=== PATIENT | female | born 1990 | race Caucasian/White ===

== ENCOUNTER 2021-11-22 12:39 | Outpatient (CLI) | payer OTHER, SELFPAY | END 2021-11-22 12:40 | disposition home or self-care (01) | LOC: LAB 13:46 | PROVIDERS: PCP Electrodiagnostic Medicine; Visit Provider Family Medicine | DX: M67.40 Ganglion, unspecified site (principal) | CPT/HCPCS: 88304 ==

== ENCOUNTER → 2021-12-12 10:17 | Outpatient (BNVA) | payer OTHER, SELFPAY | PROVIDERS: PCP Electrodiagnostic Medicine; Visit Provider Orthopaedic Surgery | DX: M54.9 Dorsalgia, unspecified (principal) | CPT/HCPCS: 72110 ==

== ENCOUNTER 2022-02-18 20:14 | Emergency (ER) | payer OTHER, SELFPAY ==
[2022-02-18 20:29] VITALS: BP 127/86; PULSE 87; RESP 16; TEMP 37; O2SAT 97; BMI 23.0
[2022-02-18 20:50] LABS: HCG Qualitative Urine. Negative (Negative)
[2022-02-18 20:54] LABS: Add Urine Microscopic? YES; Bilirubin Urine Neg (Negative); Blood Urine 2+ (Negative); Glucose Urine UA Norm (Normal); Ketones Urine Negative (Negative); Leukocyte Esterase Urine Negative (Negative); Nitrate Urine Negative (Negative); Protein Urine Neg (Negative); Specific Gravity, Urine 1.015 (1.005-1.030); Urine Appearance Clear (CLEAR); Urine Color Yellow (Yellow); Urobilinogen Urine Norm (Negative); pH Urine 6 (5-7)
--- NOTE | 2022-02-18 20:54 | ED_ITS ---
HPI - General Adult General: Chief complaint: Headache Stated complaint: (3) Headache\Breast pain and Leakage Time Seen by Provider: 02/18/22 20:38 History of Present Illness: Patient is a 31-year-old female who presents emergency room with complaints of right-sided breast pain with discharge x3 days. Patient is on Nexplanon for control. Patient tells me that in the past she has noted breast swelling but never this pain for with drainage. Patient denies any fever or chills, any recent breast-feeding, or other complaints at this time. Yesterday night, patient noted small amount of discharge from the right nipple. Patient denies any nausea or vomiting, chest pain, shortness of breath, abdominal complaints, diarrhea/melena hematochezia. In addition, patient also has been having an ongoing headache for the last 3 days as well. Patient advises frontal relief with ibuprofen. Onset:3 days Duration:3 days Location:home Severity:moderate Associated symptoms: Deny chest pain, dyspnea, nausea, rash, palpitations or vomiting Review of Systems Const: Denies: fever(s) or chills Eyes: Denies: change in vision ENMT: Denies: mouth pain Card: Denies: chest pain or palpitations Resp: Denies: dyspnea or non-productive cough GI: Denies: abdominal pain, nausea, vomiting or diarrhea : Denies: dysuria Musc: Denies: extremity pain Skin/Breast: Reports: other (+R breast pain,swelling, and drainage); Denies: rash or new lesions Neuro: Denies: weakness in extremities Psych: Reports: other (Normal mood) Martin/Lymph: Denies: easy bruising [facility] ED PFSH: Medical History Migraine Social History Smoking and tobacco status: never smoked Alcohol intake: never Substance/Drug Use: never Physical Exam Const: COMMON NORMALS: alert HENMT: COMMON NORMALS: atraumatic HEAD & SCALP: atraumatic MOUTH: moist mucous membranes not abnormal Eye: COMMON NORMALS: EOMs intact bilaterally and conjunctivae normal CONJUNCTIVA: Yes conjunctivae normal Neck/C-Spine: COMMON NORMALS: full ROM and supple Chest: OTHER: +Exam supervised by Christina tech: No obvious discharge from the right alveola, pa lpable fluctuance/erythema or warmth of the breast bilaterally Resp: COMMON NORMALS: normal respiratory effort and clear to auscultation bilaterally AUSCULTATION: clear to auscultation bilaterally Cardio: COMMON NORMALS: regular rate RATE: regular rate GI: COMMON NORMALS: Soft to palpation and non-tender PALPATION: Yes Soft to palpation Extremity: COMMON NORMALS: full ROM Neuro: SENSORIUM/ORIENTATION: Yes alert MOTOR EXAM: No Abnormal motor strength present and Other motor observations present (no focal motor deficits) Psych: COMMON NORMALS: speech normal SPEECH: Yes normal speech MOOD & AFFECT: Yes euthymic mood Skin: NARRATIVE SKIN EXAM: +No palpable fluctuance, induration, warmth, erythema surrounding breast bilaterally, no visible erythema or discharge Course Vital Signs: Vital signs: Vital Signs Temperature 98.6 F 02/18/22 20:29 Pulse Rate 100 02/18/22 21:43 Respiratory Rate 16 02/18/22 21:43 Blood Pressure 132/93 02/18/22 21:43 Pulse Oximetry 100 02/18/22 21:43 MDM - General Adult Medical Decision Making 31-year-old female with a history of migraine headache presents emergency with complaints of headache x3 days with right breast pain and discharge. On physical exam, patient has no palpable fluctuance with surrounding erythema of the right breast. No obvious discharge appreciated. Patient is not currently . Basic blood work is unremarkable. Headache improved with Tylenol Toradol and magnesium oxide. Patient is given close follow-up [facility] sure that there is no developing mastitis or acute infection of the breast. At the present time I do not suspect acute subarachnoid bleed or other intracranial pathology. Patient reassures me that she will follow-up with [facility] tomorrow for further reassessment. Rx tylenol PRN pain Disposition: Discharge. Patient counseled regarding diagnostic impression, treatment plan. Patient given ED strict return precautions to return for continuation, worsening, or development of new symptoms. Instructed to f/u w/ PCP regarding symptoms today. Patient verbalized understanding. Lab Data : 02/18/22 21:10 02/18/22 21:10 Laboratory Results WBC 7.4 10^3/uL (4.0-10.0) 02/18/22 21:10 RBC 4.39 10^6/uL (4.1-5.3) 02/18/22 21:10 Hgb 12.5 g/dL (11.5-15.3) 02/18/22 21:10 Hct 37.0 % (37.0-47.0) 02/18/22 21:10 MCV 84.3 fl (81-99) 02/18/22 21:10 MCH 28.5 pg (28.0-34.0) 02/18/22 21:10 MCHC 33.8 g/dL (30.0-36.0) 02/18/22 21:10 RDW 12.3 % (12.1-15.1) 02/18/22 21:10 Plt Count 251 10^3/cmm (130-400) 02/18/22 21:10 MPV 10.4 fL (7.4-10.4) 02/18/22 21:10 Neut % (Auto) 59.3 % 02/18/22 21:10 Lymph % (Auto) 32.3 % 02/18/22 21:10 [place] % (Auto) 6.3 % 02/18/22 21:10 Eos % (Auto) 1.6 % 02/18/22 21:10 Baso % (Auto) 0.4 % 02/18/22 21:10 Neut # (Auto) 4.39 10^3/uL (1.8-7.7) 02/18/22 21:10 Lymph # (Auto) 2.4 10^3/uL (0.8-4.8) 02/18/22 21:10 [place] # (Auto) 0.5 10^3/uL (0.2-0.9) 02/18/22 21:10 Eos # (Auto) 0.1 10^3/uL (0.0-0.8) 02/18/22 21:10 Baso # (Auto) 0.0 10^3/uL (0.0-0.1) 02/18/22 21:10 Nucleated RBC % (auto) 0 % 02/18/22 21:10 Nucleated RBCs # 0.0 /100WBC 02/18/22 21:10 Sodium 137 mmol/L (136-145) 02/18/22 21:10 Potassium 4.3 mmol/L (3.5-5.1) 02/18/22 21:10 Chloride 103 mmol/L (98-107) 02/18/22 21:10 Carbon Dioxide 25 mmol/L (22-29) 02/18/22 21:10 Anion Gap 13.3 (5-19) 02/18/22 21:10 BUN 5 mg/dL (6-20) L 02/18/22 21:10 Creatinine 0.5 mg/dL (0.5-0.9) 02/18/22 21:10 GFR Calculation 144.9 mL/min (90-130) H 02/18/22 21:10 Glucose 103 mg/dL (65-115) 02/18/22 21:10 Calculated Osmolality 282 mOsm/kg (285-295) L 02/18/22 21:10 Calcium 8.9 mg/dL (8.5-10.5) 02/18/22 21:10 HCG, Qual Negative (Negative) 02/18/22 20:38 Urine Color Yellow (Yellow) 02/18/22 20:38 Urine Appearance Clear (CLEAR) 02/18/22 20:38 Urine pH 6 (5-7) 02/18/22 20:38 Ur Specific [place] 1.015 (1.005-1.030) 02/18/22 20:38 Urine Protein Neg (Negative) 02/18/22 20:38 Urine Glucose (UA) Norm (Normal) 02/18/22 20:38 Urine Ketones Negative (Negative) 02/18/22 20:38 Urine Blood 2+ (Negative) H 02/18/22 20:38 Urine Nitrate Negative (Negative) 02/18/22 20:38 Urine Bilirubin Neg (Negative) 02/18/22 20:38 Urine Urobilinogen Norm mg/dL (Negative) 02/18/22 20:38 Ur Leukocyte Esterase Negative (Negative) 02/18/22 20:38 Urine RBC 0-4 /hpf (0-2) H 02/18/22 20:38 Urine WBC 0-4 /hpf (0-5) H 02/18/22 20:38 Ur Squamous Epith Cells 0-4 /hpf (0-5) H 02/18/22 20:38 Amorphous Sediment Not Reportable 02/18/22 20:38 Urine Bacteria None /hpf (NONE) 02/18/22 20:38 Discharge Plan Discharge Patient Disposition: Home Clinical Impression: Breast discharge, Breast pain Condition: Stable Prescriptions: No Action escitalopram oxalate [Lexapro] 20 mg tablet 20 mg PO DAILY 0RF doxycycline hyclate 100 mg capsule 100 mg PO BID 0RF prednisone 20 mg tablet 20 mg PO DIRECTED Qty: 15 0RF Rx Instructions: 60mg for 3 days, 40mg for 2days, 20mg for 2 days prednisone 20 mg tablet 20 mg PO DAILY Qty: 15 0RF Rx Instructions: 60mg x 3 days 40mg x 2 days 20mg x 2 days Discharge Orders: Discharge ED (Routine); Ordered 02/18/22 Ordered By: Usha Parikh Discharge Diet: Advance as tolerated Discharge Activity: Increase activity as tolerated Patient Instructions: Breast Pain Activity Restrictions/Additional Instructions: Come back if you have any new or concerning issues. Follow-up with [facility] for further evaluation of your breast pain and discharge. Come back to the emergency room any fever chills, drainage, redness, or any new concerning complaints. Stand Alone Forms: Work/School Release Coding Level of Care Code ED Program Schedule Clerk for Wilberto Fwd Exam Comprehensive
[2022-02-18 20:56] LABS: RBC Urine 0-4 /hpf (0-2); Squamous Epithelial Cell Urine 0-4 /hpf (0-5); WBC Urine 0-4 /hpf (0-5)
[2022-02-18 20:57] LABS: Add Urine Culture? No
[2022-02-18 21:03] VITALS: BP 132/93; PULSE 85; O2SAT 100
[2022-02-18 21:19] LABS: Basophils % 0.4 %; Eosinophils # 0.1 10^3/uL (0.0-0.8); Eosinophils % 1.6 %; Hemoglobin 12.5 g/dL (11.5-15.3); Lymphocytes # 2.4 10^3/uL (0.8-4.8); Lymphocytes % 32.3 %; Mean Corpuscular HGB Conc 33.8 g/dL (30.0-36.0); Mean Corpuscular Hemoglobin 28.5 pg (28.0-34.0); Mean Corpuscular Volume 84.3 fl (81-99); Mean Platelet Volume 10.4 fL (7.4-10.4); Monocytes # 0.5 10^3/uL (0.2-0.9); Monocytes % 6.3 %; Neutrophils # 4.39 10^3/uL (1.8-7.7); Neutrophils % 59.3 %; Nucleated Red Blood Cells % 0 %; Platelet Count 251 10^3/cmm (130-400); Red Blood Count 4.39 10^6/uL (4.1-5.3); Red Cell Distribution Width 12.3 % (12.1-15.1); White Blood Count 7.4 10^3/uL (4.0-10.0)
[2022-02-18] MEDS: magnesium oxide 400 mg tablet PO (21:20)
[2022-02-18] MEDS: acetaminophen 500 mg Tablet PO (21:21)
[2022-02-18] MEDS: ketorolac 30 mg/mL INJ IM (21:22)
[2022-02-18 21:42] LABS: Blood Urea Nitrogen 5 mg/dL (6-20); Calcium 8.9 mg/dL (8.5-10.5); Carbon Dioxide 25 mmol/L (22-29); Chloride 103 mmol/L (98-107); Glomerular Filtration Rate 144.9 mL/min (90-130); Glucose 103 mg/dL (65-115); Osmolality Calculated 282 mOsm/kg (285-295); Sodium 137 mmol/L (136-145)
[2022-02-18 21:43] VITALS: BP 132/93; PULSE 100; RESP 16; O2SAT 100
[2022-02-18 21:57] LABS: Anion Gap 13.3 (5-19); Potassium 4.3 mmol/L (3.5-5.1)
== END 2022-02-18 21:50 | disposition home or self-care (01) ==
PROVIDERS: Emergency Medicine; Emergency Provider Emergency Medicine
DX: N64.4 Mastodynia (principal); N64.52 Nipple discharge
CPT/HCPCS: 80048; 81001; 81025; 85025; 96372; 99283; J1885

== ENCOUNTER 2022-08-20 19:11 | Emergency (ER) | payer OTHER, SELFPAY ==
--- NOTE | 2022-08-20 19:18 | XRR_ITS ---
PROCEDURE INFORMATION: Exam: XR Chest Exam date and time: 08/20/2022 8:44 PM Age: 31 years old Clinical indication: Orthopnea (sob when lying down) TECHNIQUE: Imaging protocol: Radiologic exam of the chest. Views: 1 view. COMPARISON: No relevant prior studies available. FINDINGS: Lungs: Mildly hyperaerated lungs consistent with deep inspiratory effort vs reactive airway disease vs mild COPD . Pleural spaces: Unremarkable. No pleural effusion. No pneumothorax. Heart/Mediastinum: Unremarkable. No cardiomegaly. Bones/joints: Unremarkable. XR/XR chest 1V portable [id number] IMPRESSION: Mildly hyperaerated lungs consistent with deep inspiratory effort vs reactive airway disease vs mild COPD .
[2022-08-20 19:19] VITALS: BMI 23.2
[2022-08-20 19:24] VITALS: BP 115/79; PULSE 95; RESP 16; TEMP 36.7; O2SAT 100
--- NOTE | 2022-08-20 19:33 | W.ED.ARRPALP ---
HPI - Arrhythmia/Palpitations General: Chief Complaint: Arrhythmia/Palpitations Stated Complaint: SOB\Chest Pain, Palpatation Time Seen by Provider: 08/20/22 19:28 History of Present Illness: Ms. Dickinson is a 31-year-old without significant past medical history presenting to the emergency department due to shortness of breath and palpitations. Onset of symptoms was approximately 3 days ago without known specific provoking factor. She describes shortness of breath episodes as well as heart rate at rest in the 130s to 150s. Denies associated infectious symptoms. Denies recent travel or risk factors for blood clots. Intensity symptoms is moderate to severe. Course is variable. No other specific changes in health, exacerbating, or alleviating factors identified. Onset (ago): day(s) Duration: intermittent Associated symptoms: Reports short of breath Review of Systems General: Reports: 10 or more systems reviewed and unremarkable except in HPI and below PFSH ED PFSH: Medical History Migraine Social History Smoking and tobacco status: never smoked Alcohol intake: never Female Reproductive History: Date of last menstrual period: 07/29/22 Physical Exam Const: COMMON NORMALS: alert GENERAL APPEARANCE: cooperative and well developed HENMT: COMMON NORMALS: normocephalic and atraumatic HEAD & SCALP: normocephalic and atraumatic Eye: COMMON NORMALS: conjunctivae normal CONJUNCTIVA: Yes conjunctivae normal SCLERA: sclerae normal Neck/C-Spine: COMMON NORMALS: supple GENERAL: Yes trachea midline Resp: COMMON NORMALS: normal respiratory effort and clear to auscultation bilaterally EFFORT & INSPECTION: Yes able to speak in complete sentences AUSCULTATION: clear to auscultation bilaterally Cardio: COMMON NORMALS: regular rhythm RATE: tachycardic RHYTHM: regular rhythm GI: COMMON NORMALS: Soft to palpation PALPATION: Yes Soft to palpation and No Tenderness to palpation present (GI) Extremity: GENERAL: Yes normal exam except as noted and No edema Neuro: COMMON NORMALS: moves all extremities SENSORIUM/ORIENTATION: Yes alert and No Orientation impaired Psych: COMMON NORMALS: mental status grossly normal and Normal thought process present THOUGHT PROCESS: Normal thought process present Course Vital Signs: Vital signs: Vital Signs Temperature 98.1 F 08/20/22 19:24 Pulse Rate 95 08/20/22 21:00 Respiratory Rate 16 08/20/22 21:00 Blood Pressure 98/49 08/20/22 21:00 Pulse Oximetry 100 08/20/22 21:00 Oxygen Delivery Me thod 08/20/22 19:53 MDM - Arrhythmia/Palpitations Medical Decision Making 31-year-old female presenting with palpitations and shortness of breath. Exam as above. EKG shows sinus tachycardia, nonspecific ST segment abnormalities, no STEMI. Labs with no significant metabolic or hematologic abnormality to explain symptoms. D-dimer negative. Troponin negative. Chest x-ray negative for lobar consolidation or pneumothorax. Patient improved with IV fluids. Potassium supplementation and magnesium supplementation for Halytskyy prevention. Exact etiology of patient symptoms is unclear though does not appear to need hospitalization at this time. Patient is appropriate for outpatient Holter monitor which will be ordered. The results of ED evaluation were discussed with the patient including prescriptions and/or symptomatic cares (if applicable) including appropriate and responsible use, followup plan, and return precautions. The patient verbalized understanding and felt safe for discharge. Medical Records I reviewed the patient's medical records. Lab Data I reviewed the patient's lab results. 08/20/22 19:53 08/20/22 19:53 Radiology Impressions Chest X-Ray 08/20/22 19:18 IMPRESSION: Mildly hyperaerated lungs consistent with deep inspiratory effort vs reactive airway disease vs mild COPD . Laboratory Results WBC 9.3 10^3/uL (4.0-10.0) 08/20/22 19:53 RBC 4.31 10^6/uL (4.1-5.3) 08/20/22 19:53 Hgb 12.5 g/dL (11.5-15.3) 08/20/22 19:53 Hct 36.6 % (37.0-47.0) L 08/20/22 19:53 MCV 84.9 fl (81-99) 08/20/22 19:53 MCH 29.0 pg (28.0-34.0) 08/20/22 19:53 MCHC 34.2 g/dL (30.0-36.0) 08/20/22 19:53 RDW 12.1 % (12.1-15.1) 08/20/22 19:53 Plt Count 250 10^3/cmm (130-400) 08/20/22 19:53 MPV 11.0 fL (7.4-10.4) H 08/20/22 19:53 Neut % (Auto) 57.2 % 08/20/22 19:53 Lymph % (Auto) 34.9 % 08/20/22 19:53 [place] % (Auto) 6.1 % 08/20/22 19:53 Eos % (Auto) 1.2 % 08/20/22 19:53 Baso % (Auto) 0.4 % 08/20/22 19:53 Neut # (Auto) 5.34 10^3/uL (1.8-7.7) 08/20/22 19:53 Lymph # (Auto) 3.3 10^3/uL (0.8-4.8) 08/20/22 19:53 [place] # (Auto) 0.6 10^3/uL (0.2-0.9) 08/20/22 19:53 Eos # (Auto) 0.1 10^3/uL (0.0-0.8) 08/20/22 19:53 Baso # (Auto) 0.0 10^3/uL (0.0-0.1) 08/20/22 19:53 Nucleated RBC % (auto) 0 % 08/20/22 19:53 Nucleated RBCs # 0.0 /100WBC 08/20/22 19:53 D-Dimer 0.39 ug/mIFEU (0-0.59) 08/20/22 19:45 Sodium 137 mmol/L (136-145) 08/20/22 19:53 Potassium 3.6 mmol/L (3.5-5.1) 08/20/22 19:53 Chloride 101 mmol/L (98-107) 08/20/22 19:53 Carbon Dioxide 21 mmol/L (22-29) L 08/20/22 19:53 Anion Gap 18.6 (5-19) 08/20/22 19:53 BUN 13 mg/dL (6-20) 08/20/22 19:53 Creatinine 0.5 mg/dL (0.5-0.9) 08/20/22 19:53 GFR Calculation 144.9 mL/min (90-130) H 08/20/22 19:53 Glucose 83 mg/dL (65-115) 08/20/22 19:53 Calculated Osmolality 283 mOsm/kg (285-295) L 08/20/22 19:53 Calcium 9.2 mg/dL (8.5-10.5) 08/20/22 19:53 Magnesium 1.8 mg/dL (1.7-2.3) 08/20/22 19:53 Total Bilirubin 0.3 mg/dL (0.15-1.2) 08/20/22 19:53 AST 18 U/L (0-32) 08/20/22 19:53 ALT 15 U/L (0-33) 08/20/22 19:53 Alkaline Phosphatase 43 U/L (35-105) 08/20/22 19:53 Troponin T Baseline 6 ng/L (0-10) 08/20/22 19:53 Troponin T 120 Minute 6.00 ng/L (0-10) 08/20/22 21:20 Delta Troponin T 0 ABS# (0-10) 08/20/22 21:20 Total Protein 7.2 g/dL (6.6-8.7) 08/20/22 19:53 Albumin 4.4 g/dL (3.5-5.2) 08/20/22 19:53 Globulin 2.8 g/dL (1.3-4.6) 08/20/22 19:53 TSH 1.85 uIU/mL (0.27-4.20) 08/20/22 19:53 HCG, Qual Negative (Negative) 08/20/22 19:53 Discharge Plan Discharge Patient Disposition: Home Clinical Impression: Palpitations, Sinus tachycardia, Shortness of breath Condition: Stable Prescriptions: No Action escitalopram oxalate [Lexapro] 20 mg tablet 20 mg PO DAILY doxycycline hyclate 100 mg capsule 100 mg PO BID prednisone 20 mg tablet 20 mg PO DIRECTED Qty: 15 0RF Rx Instructions: 60mg for 3 days, 40mg for 2days, 20mg for 2 days prednisone 20 mg tablet 20 mg PO DAILY Qty: 15 0RF Rx Instructions: 60mg x 3 days 40mg x 2 days 20mg x 2 days Discharge Orders: Discharge ED (Routine); Ordered 08/20/22 Ordered By: Ramo Lai Other Ambulatory Orders: ECG holter monitor 3 Days (Routine) Timeframe: 3 Days Facility: [facility] - Location: Radiology Ordered By: Ramo Lai Referrals: Guerline Youngblood FNP [Primary Care Provider] - Discharge Diet: Usual diet Discharge Activity: Increase activity as tolerated Patient Instructions: Heart Palpitations (ED), Tachycardia (ED) Activity Restrictions/Additional Instructions: Thank you for visiting the emergency department. You were seen and evaluated for chest discomfort, palpitations with rapid heart rate, shortness of breath. The exact cause of your symptoms is unclear though does not need inpatient management or further ED evaluation at this point. I will place an order for an outpatient satellite project site monitor that you wear to evaluate for arrhythmias. I recommend follow-up with a primary care provider. Return to the emergency department for uncontrolled symptoms or anything else that you are concerned about a feel needs emergency department evaluation. Stand Alone Forms: Work/School Release Coding Level of Care Code ED Help Desk Agent for Wilberto Fwd Exam Comprehensive
--- NOTE | 2022-08-20 19:42 | ECG_ITS ---
[facility] Test Date: 2022-08-20 Pat Name: Lucie Dickinson Department: Room: Gender: Female Human Resources Compensation Analyst: : 1990 Requested By: Noemi Mendoza Order Number: [id number] Alejandro MD: Julio C Morley M.D. Measurements Intervals [place] Rate: 103 P: 75 DE: 168 QRS: 71 QRSD: 83 T: 23 QT: 335 QTc: 439 Interpretive Statements SINUS TACHYCARDIA POSSIBLE LEFT ATRIAL ENLARGEMENT [-0.1mV P-WAVE IN V1/V2] No previous ECG available for comparison Electronically Signed On 08-22-2022 6:27:26 PRESS HAND SUPERVISOR by Julio C Morley M.D. [id number]
[2022-08-20 19:53] VITALS: BP 119/81; PULSE 105; RESP 15; O2SAT 100
[2022-08-20 19:56] LABS: Basophils % 0.4 %; Eosinophils # 0.1 10^3/uL (0.0-0.8); Eosinophils % 1.2 %; Hematocrit 36.6 % (37.0-47.0); Hemoglobin 12.5 g/dL (11.5-15.3); Lymphocytes # 3.3 10^3/uL (0.8-4.8); Lymphocytes % 34.9 %; Mean Corpuscular HGB Conc 34.2 g/dL (30.0-36.0); Mean Corpuscular Volume 84.9 fl (81-99); Monocytes # 0.6 10^3/uL (0.2-0.9); Monocytes % 6.1 %; Neutrophils # 5.34 10^3/uL (1.8-7.7); Neutrophils % 57.2 %; Nucleated Red Blood Cells % 0 %; Platelet Count 250 10^3/cmm (130-400); Red Blood Count 4.31 10^6/uL (4.1-5.3); Red Cell Distribution Width 12.1 % (12.1-15.1); White Blood Count 9.3 10^3/uL (4.0-10.0)
[2022-08-20 20:00] VITALS: BP 113/67; PULSE 93; RESP 10; O2SAT 100
[2022-08-20] MEDS: sodium chloride 0.9% 1,000 ML 999 ML IV (20:09)
[2022-08-20 20:23] LABS: HCG, Serum Qual Negative (Negative)
[2022-08-20 20:30] VITALS: BP 98/52; PULSE 90; RESP 17; O2SAT 100
[2022-08-20 20:31] LABS: Troponin(5th) Baseline 6 ng/L (0-10)
[2022-08-20 21:00] VITALS: BP 98/49; PULSE 95; RESP 16; O2SAT 100
[2022-08-20 21:10] LABS: Alanine Aminotransferase 15 U/L (0-33); Albumin Level 4.4 g/dL (3.5-5.2); Alkaline Phosphatase 43 U/L (35-105); Anion Gap 18.6 (5-19); Aspartate Amino Transferase 18 U/L (0-32); Blood Urea Nitrogen 13 mg/dL (6-20); Calcium 9.2 mg/dL (8.5-10.5); Carbon Dioxide 21 mmol/L (22-29); Chloride 101 mmol/L (98-107); Globulin 2.8 g/dL (1.3-4.6); Glomerular Filtration Rate 144.9 mL/min (90-130); Glucose 83 mg/dL (65-115); Magnesium 1.8 mg/dL (1.7-2.3); Osmolality Calculated 283 mOsm/kg (285-295); Potassium 3.6 mmol/L (3.5-5.1); Sodium 137 mmol/L (136-145); Thyroid Stimulating Hormone 1.85 uIU/mL (0.27-4.20); Total Bilirubin 0.3 mg/dL (0.15-1.2); Total Protein 7.2 g/dL (6.6-8.7)
[2022-08-20 21:24] LABS: D Dimer 0.39 ug/mIFEU (0-0.59)
--- NOTE | 2022-08-20 21:25 | ECG_ITS ---
[facility] Test Date: 2022-08-20 Pat Name: Lucie Dickinson Department: Room: Gender: Female Manager Pe: : 1990 Requested By: Noemi Mendoza Order Number: [id number] Flavia MD: Julio C Morley M.D. Measurements Intervals [place] Rate: 90 P: 72 PA: 162 QRS: 74 QRSD: 80 T: 40 QT: 366 QTc: 449 Interpretive Statements SINUS RHYTHM POSSIBLE LEFT ATRIAL ENLARGEMENT [-0.1mV P-WAVE IN V1/V2] Compared to ECG 08/20/2022 19:42:58 Sinus tachycardia no longer present Electronically Signed On 08-22-2022 6:33:33 STUDENT DEVELOPMENT ADVISOR by Julio C Morley M.D. [id number]
[2022-08-20 21:56] LABS: Troponin 5 2HR Delta 0 ABS# (0-10)
== END 2022-08-20 22:01 | disposition home or self-care (01) ==
PROVIDERS: Emergency Medicine; Emergency Provider Emergency Medicine; PCP Nurse Practitioner Family
DX: R06.02 Shortness of breath (principal); R00.2 Palpitations; R00.0 Tachycardia, unspecified
CPT/HCPCS: 71045; 80053; 83735; 84443; 84484; 84703; 85025; 85378; 93005; 96360; 99285; J7030

== ENCOUNTER → 2023-01-07 10:12 | Outpatient (BNVA) | payer OTHER, SELFPAY | PROVIDERS: PCP Nurse Practitioner Family; Visit Provider Emergency Medicine | DX: J02.9 Acute pharyngitis, unspecified (principal) | CPT/HCPCS: 87880 ==

== ENCOUNTER 2023-02-19 23:55 | Emergency (ER) | payer OTHER, SELFPAY ==
[2023-02-19 23:57] VITALS: BP 120/85; PULSE 118; RESP 15; TEMP 36.8; O2SAT 99
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
[2023-02-20 01:08] LABS: HCG, Serum Qual Negative (Negative)
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
[2023-02-20] MEDS: iohexol 350 mg/mL 500 mL Btl (per mL) IV (01:26)
[2023-02-20 02:00] VITALS: BP 114/70
[2023-02-20 02:03] VITALS: PULSE 112; O2SAT 99
[2023-02-20] MEDS: neomycin-poly-bacitracin oint 28 gm 1 APPLIC TOPICAL (02:50)
[2023-02-20 03:17] VITALS: BP 101/66; PULSE 104; RESP 18; O2SAT 96
== END 2023-02-20 03:20 | disposition home or self-care (01) ==
PROVIDERS: Emergency Provider Nurse Practitioner Family; PCP Nurse Practitioner Family
DX: S40.021A Contusion of right upper arm, initial encounter (principal); S80.12XA Contusion of left lower leg, initial encounter; S80.11XA Contusion of right lower leg, initial encounter; S20.211A Contusion of right front wall of thorax, initial encounter; W22.11XA Striking against or struck by driver side automobile airbag, initial encounter; V89.2XXA Person injured in unspecified motor-vehicle accident, traffic, initial encounter
CPT/HCPCS: 70450; 71260; 72125; 74177; 84703; 99285; Q9967

== ENCOUNTER 2023-05-17 17:42 | Emergency (ER) | payer OTHER, SELFPAY ==
[2023-05-17 17:48] VITALS: BP 114/75; PULSE 100; RESP 16; O2SAT 98; BMI 20.3
--- NOTE | 2023-05-17 17:52 | W.ED.BACK ---
HPI - Back Pain/Injury General: Chief Complaint: Back Pain/Injury Stated Complaint: low back pain (work comp) Time Seen by Provider: 05/17/23 17:48 Source: patient Mode of arrival: ambulatory History of Present Illness: 32-year-old female presents emergency room with complaint of low back pain. She was moving a patient the patient fell she was holding onto a gait belt twisted her as she went down trying to catch the patient. She did not actually hit anything she mostly strained her back. She has had intermittent back problems in the past. She does have some discomfort into both legs after this episode. No previous back surgeries. MD elicited complaint: back pain Pertinent past history: prior back pain and recent trauma Timing: constant Severity: moderate Quality: sharp Location: lumbar spine Exacerbating factors: movement and walking Relieving factors: none Associated symptoms: Deny abdominal pain, arthralgias, chills, change in bowel habits, difficulty walking, dysuria, fatigue, fecal incontinence, fever(s), hematuria, myalgias, nausea, numbness, syncope, tingling/numbness/burning, urinary frequency, urinary urgency, vomiting or weakness Review of Systems Const: Denies: fever(s), chills or fatigue Card: Denies: syncope GI: Denies: abdominal pain, nausea, vomiting, fecal incontinence or change in bowel habits : Denies: dysuria, urinary urgency or hematuria Neuro: Denies: difficulty walking PFSH ED PFSH: Medical History Anxiety and depression Migraine Surgical History S/P section Family History Grandmother CHF (congestive heart failure) Myocardial infarction Hypertension Mother Stroke Social History Smoking and tobacco status: never smoked Alcohol intake: never Substance/Drug Use: never Physical Exam Const: GENERAL APPEARANCE: cooperative and comfortable ORIENTATION/CONSCIOUSNESS: Yes awake, Yes oriented to person, Yes oriented to place and Yes oriented to time HENMT: COMMON NORMALS: normocephalic, atraumatic and hearing grossly normal bilaterally HEAD & SCALP: normocephalic and atraumatic Extremity: COMMON NORMALS: normal to inspection, capillary refill normal, no clubbing, cyanosis or edema, no calf tenderness and no pedal edema Neuro: SENSORIUM/ORIENTATION: Yes oriented to person, Yes oriented to place and Yes oriented to time OTHER: Lower extremity strength 5 of 5 dorsum plantar flex strength 5 of 5 deep tendon reflexes +2/4 at the Achilles and at the patellar tendon straight leg raising negative sensation lower extremities normal Skin: COMMON NORMALS: no rashes or lesions noted GENERAL SKIN EXAM: no rashes or lesions noted Course Vital Signs: Vital signs: Vital Signs Pulse Rate 100 05/17/23 17:48 Respiratory Rate 16 05/17/23 17:48 Blood Pressure 114/75 05/17/23 17:48 Pulse Oximetry 98 05/17/23 17:48 Oxygen Delivery Me thod Room Air 05/17/23 17:48 MDM - Back Pain/Injury Medical Decision Making Patient is no saddle paresthesias no urinary retention or fecal incontinence. We will discharge patient home she had improvement with medications given here though she did have a little bit of side effects likely from the steroid. Norflex it was improved with Zofran. Discharge patient home on steroid taper diclofenac muscle relaxer. Follow-up with work comp within the next week. Restrict lifting to no greater than 20 pounds avoid stooping and bending Discharge Plan Discharge Patient Disposition: Home Clinical Impression: Strain of lumbar region Condition: Stable Prescriptions: New tizanidine 4 mg tablet 4 mg PO Q6H PRN (Reason: muscle spasticity) Qty: 20 0RF Rx Instructions: do not exceed 3 doses per 24 hrs prednisone 20 mg tablet 20 mg PO TID Qty: 15 0RF Rx Instructions: 1 p.o. 3 times daily x3 days, 1 p.o. twice daily x2 days, 1 p.o. daily x2 days diclofenac sodium 75 mg tablet,delayed release (DR/EC) 75 mg PO Q12H PRN (Reason: pain) Qty: 20 0RF Discontinued ibuprofen 600 mg tablet 600 mg PO Q8H PRN (Reason: pain) Qty: 60 0RF No Action azithromycin [Zithromax] 500 mg tablet 500 mg PO DAILY 5 Days Qty: 5 0RF buspirone 5 mg tablet 5 mg PO BID PRN sumatriptan succinate [Imitrex] 25 mg tablet See Rx Instructions PO .COMPLEX Rx Instructions: take 1 tab at onset of headache; if no relief may repeat 1 tab after at least 2 hrs; max = 4 tabs/24 hr PO promethazine 12.5 mg tablet 12.5 mg PO Q6H PRN propranolol 10 mg tablet 10 mg PO DAILY Discharge Orders: Discharge ED (Routine); Ordered 05/17/23 Ordered By: Lul Beard Referrals: Guerline Youngblood FNP [Primary Care Provider] - Discharge Diet: Usual diet Discharge Activity: Increase activity as tolerated Patient Instructions: Acute Low Back Pain (ED), Opioid Safety, Pain Management Coding Level of Care Code ED Delivery And Installation Subcontractor for Wilberto Roger
[2023-05-17] MEDS: dexamethasone 10 mg/mL INJ IVP (18:05)
[2023-05-17] MEDS: ketorolac 30 mg/mL INJ IVP (18:05)
[2023-05-17] MEDS: orphenadrine 30 mg/mL Inj 2 mL 60 MG IVP (18:05)
[2023-05-17] MEDS: ondansetron 2 mg/ML SDV 2 mL 4 MG IVP (18:14)
== END 2023-05-17 18:33 | disposition home or self-care (01) ==
PROVIDERS: Emergency Provider Family Medicine; PCP Nurse Practitioner Family
DX: S33.5XXA Sprain of ligaments of lumbar spine, initial encounter (principal); W18.39XA Other fall on same level, initial encounter; Y99.0 Civilian activity done for income or pay
CPT/HCPCS: 96374; 96375; 99284; J1100; J1885; J2360; J2405

== ENCOUNTER → 2024-05-24 14:39 | Outpatient (BNVA) | payer OTHER, SELFPAY | PROVIDERS: PCP Nurse Practitioner Family; Visit Provider Family Medicine | DX: R00.2 Palpitations (principal) | CPT/HCPCS: 80053; 80061; 82728; 83550; 84439; 84443; 85025 ==

== ENCOUNTER 2024-10-05 02:40 | Emergency (ER) | payer SELFPAY ==
[2024-10-05] VITALS (11 sets, daily range): BP systolic 94–126; BP diastolic 60–94; PULSE 86–158; RESP 12–22; TEMP 36.4; O2SAT 97–99; BMI 18.9
--- NOTE | 2024-10-05 02:54 | XRR_ITS ---
PROCEDURE INFORMATION: Exam: XR Chest Exam date and time: 10/05/2024 3:20 AM Age: 33 years old Clinical indication: Other: Tachycardia TECHNIQUE: Imaging protocol: Radiologic exam of the chest. Views: 1 view. COMPARISON: CT chest abdpel w/*[id number] 02/20/2023 1:18 AM FINDINGS: Lungs: Unremarkable. No consolidation. Pleural spaces: Unremarkable. No pleural effusion. No pneumothorax. Heart/Mediastinum: Unremarkable. No cardiomegaly. Bones/joints: Unremarkable. Soft tissues: Stable rounded left chest wall calcifications. XR/XR chest 1V portable [id number] IMPRESSION: No acute cardiopulmonary findings.
--- NOTE | 2024-10-05 02:55 | ECG_ITS ---
[facility] Test Date: 2024-10-05 Pat Name: Lucie Dickinson Department: Room: Gender: Female Social Media Analyst: : 1990 Requested By: Jamison Rodriguez Order Number: [id number] Alejandro MD: Julio C Morley M.D. Measurements Intervals [place] Rate: 167 P: 0 SC: 0 QRS: 71 QRSD: 82 T: 40 QT: 267 QTc: 445 Interpretive Statements SUPRAVENTRICULAR TACHYCARDIA MODERATE ST DEPRESSION [0.05+ mV ST DEPRESSION] Compared to ECG 08/20/2022 21:25:37 ST (T wave) deviation now present Sinus rhythm no longer present Electronically Signed On 10-06-2024 12:31:25 MEDICAL RECORDS DIRECTOR by Julio C Morley M.D. [email or web address]
[2024-10-05 03:04] LABS: Basophils # 0.1 10^3/uL (0.0-0.1); Basophils % 0.7 %; Eosinophils # 0.1 10^3/uL (0.0-0.8); Eosinophils % 1.1 %; Hematocrit 37.6 % (36-47); Lymphocytes # 2.1 10^3/uL (0.8-4.8); Lymphocytes % 28.8 %; Mean Corpuscular HGB Conc 33.5 g/dL (30-55); Mean Corpuscular Hemoglobin 28.1 pg (27-33); Mean Corpuscular Volume 83.7 fl (85-98); Monocytes # 0.5 10^3/uL (0.2-0.9); Monocytes % 6.9 %; Neutrophils # 4.62 10^3/uL (1.8-7.7); Neutrophils % 62.4 %; Nucleated Red Blood Cells % 0 %; Platelet Count 320 10^3/cmm (157-399); Red Blood Count 4.49 10^6/uL (3.85-5.65); Red Cell Distribution Width 12.2 % (12.1-15.1)
[2024-10-05] MEDS: LORazepam 2 mg/mL INJ 1 mL 1 MG IVP (03:09)
[2024-10-05] MEDS: sodium chloride 0.9% 1,000 ML 999 ML IV (03:10)
--- NOTE | 2024-10-05 03:18 | W.ED.GENADLT ---
HPI - General Adult General: Chief complaint: General Medical Stated complaint: Pt cant Move arms LegsAnxiety? Time Seen by Provider: 10/05/24 02:44 History of Present Illness: Patient presents to the ER with a fast heart rate and just not feeling well. Patient not able to answer room any questions and just keeps saying I do not know how I feel. Upon arrival her heart rate was about 158 beats a minute. Patient is accompanied by her significant other. He says they were in the shower when she just started saying she does not feel right and acting about like she is doing now so he brought her here for further evaluation treatment. Related Data Home Medications Medication Instructions Recorded Confirmed lysine 500 mg tablet (L-Lysine) 500 mg PO DAILY 08/01/24 08/29/24 metoprolol tartrate 25 mg tablet 12.5 mg PO BID 08/01/24 08/29/24 Previous Rx's Medication Instructions Recorded sumatriptan succinate 25 mg tablet See Rx Instructions PO .COMPLEX 05/24/24 #10 tabs bupropion HCl 300 mg 24 hr tablet, 300 mg PO QAM #90 tabs 08/29/24 extended release buspirone 15 mg tablet 15 mg PO BID #180 tabs 08/29/24 Allergies Allergy/AdvReac Type Severity Reaction Status Date / Time Penicillins Allergy Hives Verified 10/05/24 02:51 Review of Systems General: Reports: 10 or more systems reviewed and unremarkable except in HPI and below PFSH ED PFSH: Medical History MILLER (generalized anxiety disorder) Moderate major depression Intermittent palpitations Anxiety and depression Migraine Surgical History S/P section Family History Grandmother Congestive heart failure (CHF) Myocardial infarction Hypertension Mother Stroke Social History Smoking and tobacco/nicotine status: unknown if used tobacco/nicotine Alcohol intake: never Substance/Drug Use: never Female Reproductive History: Date of last menstrual period: 10/05/24 Para: 3 Spontaneous abortions: Yes (1) Physical Exam Const: COMMON NORMALS: no acute distress, average body habitus, patient oriented x3, no limitations, healthy appearing, alert and well nourished HENMT: COMMON NORMALS: normocephalic, atraumatic, hearing grossly normal bilaterally, external ears normal, Normal external nose present and moist oral mucous membranes HEAD & SCALP: normocephalic and atraumatic NOSE: Normal external nose present EXTERNAL EAR: Yes external ears normal Eye: COMMON NORMALS: Equal, round and reactive pupils present, EOMs intact bilaterally, conjunctivae normal and no scleral icterus CONJUNCTIVA: Yes conjunctivae normal PUPIL: Yes Equal, round and reactive pupils present Neck/C-Spine: COMMON NORMALS: no JVD Chest: COMMONS NORMALS: normal inspection of the chest and normal palpation of entire chest wall Resp: COMMON NORMALS: normal respiratory effort, No retractions, No use of accessory muscles and clear to auscultation bilaterally AUSCULTATION: clear to auscultation bilaterally Cardio: COMMON NORMALS: no JVD, regular rhythm, S1 normal heart sound present, S2 normal heart sound present, No gallops present (Cardio), No clicks present (Cardio), No murmurs present (Cardio) and No rub (Cardio); negative for regular rate (Tachycardic) RATE: abnormal rate (Tachycardic) RHYTHM: regular rhythm HEART SOUNDS: S1 normal heart sound present and S2 normal heart sound present GI: COMMON NORMALS: Normal to inspection, nondistended, normoactive bowel sounds present, Soft to palpation, non-tender, No hepatosplenomegaly present and no masses PALPATION: Yes Soft to palpation and Yes No hepatosplenomegaly present Neuro: COMMON NORMALS: patient oriented x3 SENSORIUM/ORIENTATION: Yes alert Course Vital Signs: Vital signs: Vital Signs Temperature 97.6 F 10/05/24 02:43 Pulse Rate 87 10/05/24 05:33 Respiratory Rate 16 10/05/24 05:33 Blood Pressure 104/61 10/05/24 05:33 Pulse Oximetry 97 10/05/24 05:33 Oxygen Delivery Me thod Room Air 10/05/24 02:43 MDM - General Adult Medical Decision Making EKG performed labwork was obtained patient is given 1 mg Ativan while waiting for lab work to come back her heart rate decreased down to about 98 bpm. Patient started feeling a lot better. Once lab work came back we discussed the results with the patient and also the x-ray that preliminary read by myself is negative. Patient felt comfortable going home patient be discharged. Lab Data 10/05/24 02:58 10/05/24 02:58 Radiology Impressions Chest X-Ray 10/05/24 02:54 IMPRESSION: No acute cardiopulmonary findings. Laboratory Results WBC 7.40 10^3/uL (3.29-11.43) 10/05/24 02:58 RBC 4.49 10^6/uL (3.85-5.65) 10/05/24 02:58 Hgb 12.60 g/dL (11.27-16.99) 10/05/24 02:58 Hct 37.6 % (36-47) 10/05/24 02:58 MCV 83.7 fl (85-98) L 10/05/24 02:58 MCH 28.1 pg (27-33) 10/05/24 02:58 MCHC 33.5 g/dL (30-55) 10/05/24 02:58 RDW 12.2 % (12.1-15.1) 10/05/24 02:58 Plt Count 320 10^3/cmm (157-399) 10/05/24 02:58 MPV 10.0 fL (7.4-10.4) 10/05/24 02:58 Neut % (Auto) 62.4 % 10/05/24 02:58 Lymph % (Auto) 28.8 % 10/05/24 02:58 [place] % (Auto) 6.9 % 10/05/24 02:58 Eos % (Auto) 1.1 % 10/05/24 02:58 Baso % (Auto) 0.7 % 10/05/24 02:58 Neut # (Auto) 4.62 10^3/uL (1.8-7.7) 10/05/24 02:58 Lymph # (Auto) 2.1 10^3/uL (0.8-4.8) 10/05/24 02:58 [place] # (Auto) 0.5 10^3/uL (0.2-0.9) 10/05/24 02:58 Eos # (Auto) 0.1 10^3/uL (0.0-0.8) 10/05/24 02:58 Baso # (Auto) 0.1 10^3/uL (0.0-0.1) 10/05/24 02:58 Nucleated RBC % (auto) 0 % 10/05/24 02:58 Nucleated RBCs # 0.0 /100WBC 10/05/24 02:58 Sodium 140 mmol/L (136-145) 10/05/24 02:58 Potassium 4.0 mmol/L (3.5-5.1) 10/05/24 02:58 Chloride 102 mmol/L (98-107) 10/05/24 02:58 Carbon Dioxide 24 mmol/L (22-29) 10/05/24 02:58 Anion Gap 18.0 (5-19) 10/05/24 02:58 BUN 9 mg/dL (6-20) 10/05/24 02:58 Creatinine 0.7 mg/dL (0.5-0.9) 10/05/24 02:58 GFR Calculation 97.0 mL/min (90-130) 10/05/24 02:58 Glucose 139 mg/dL (65-115) H 10/05/24 02:58 Calculated Osmolality 291 mOsm/kg (285-295) 10/05/24 02:58 Calcium 9.6 mg/dL (8.5-10.5) 10/05/24 02:58 Magnesium 1.9 mg/dL (1.7-2.3) 10/05/24 02:58 Total Bilirubin 0.3 mg/dL (0.15-1.2) 10/05/24 02:58 AST 18 U/L (0-32) 10/05/24 02:58 ALT 13 U/L (0-33) 10/05/24 02:58 Alkaline Phosphatase 45 U/L (35-105) 10/05/24 02:58 Troponin T Baseline < 6 ng/L (0-10) 10/05/24 02:58 Troponin T 120 Minute 6.00 ng/L (0-10) 10/05/24 04:39 Delta Troponin T 0.05153 ABS# (0-10) 10/05/24 04:39 Total Protein 7.1 g/dL (6.6-8.7) 10/05/24 02:58 Albumin 4.8 g/dL (3.5-5.2) 10/05/24 02:58 Globulin 2.3 g/dL (1.3-4.6) 10/05/24 02:58 TSH 2.58 uIU/mL (0.27-4.20) 10/05/24 02:58 Urine Color Yellow (Yellow) 10/05/24 05:06 Urine Appearance Clear (CLEAR) 10/05/24 05:06 Urine pH 7.0 (5-7) 10/05/24 05:06 Ur Specific [place] 1.010 (1.005-1.030) 10/05/24 05:06 Urine Protein Negative (Negative) 10/05/24 05:06 Urine Glucose (UA) Negative (Normal) 10/05/24 05:06 Urine Ketones Negative (Negative) 10/05/24 05:06 Urine Blood 2+ (Negative) A 10/05/24 05:06 Urine Nitrate Negative (Negative) 10/05/24 05:06 Urine Bilirubin Negative (Negative) 10/05/24 05:06 Urine Urobilinogen 1.0 mg/dL (Negative) 10/05/24 05:06 Ur Leukocyte Esterase Negative (Negative) 10/05/24 05:06 Urine RBC 0-2 /hpf (0-2) 10/05/24 05:06 Urine WBC 0-5 /hpf (0-5) 10/05/24 05:06 Ur Squamous Epith Cells 0-5 /hpf (0-5) 10/05/24 05:06 Amorphous Sediment Not Reportable 10/05/24 05:06 Urine Bacteria 4+ /hpf (NONE) H 10/05/24 05:06 Hyaline Casts 0-4 /lpf H 10/05/24 05:06 Urine Opiates Screen Negative ng/mL (Negative) 10/05/24 05:06 Ur Barbiturates Screen Negative ng/mL (Negative) 10/05/24 05:06 Ur Phencyclidine Scrn Negative ng/mL (Negative) 10/05/24 05:06 Ur Amphetamines Screen Negative ng/mL (Negative) 10/05/24 05:06 U Benzodiazepines Scrn Negative ng/mL (Negative) 10/05/24 05:06 Urine Cocaine Screen Negative ng/mL (Negative) 10/05/24 05:06 U Marijuana (THC) Screen Negative ng/mL (Negative) 10/05/24 05:06 All radiology interpretation(s) finalized by discharge Discharge Plan Discharge Patient Disposition: Home Clinical Impression: Tachycardia, Anxiety Condition: Stable Prescriptions: No Action sumatriptan succinate 25 mg tablet See Rx Instructions PO .COMPLEX Qty: 10 0RF Rx Instructions: take 1 tab at onset of headache; if no relief may repeat 1 tab after at least 2 hrs; max = 4 tabs/24 hr PO lysine [L-Lysine] 500 mg tablet 500 mg PO DAILY metoprolol tartrate 25 mg tablet 12.5 mg PO BID bupropion HCl 300 mg tablet extended release 24 hr 300 mg PO QAM Qty: 90 1RF buspirone 15 mg tablet 15 mg PO BID Qty: 180 1RF Discharge Orders: Discharge ED (Routine); Ordered 10/05/24 Ordered By: Jamison Rodriguez Referrals: Kwaku Jaramillo MD [Primary Care Provider] - 1 week Patient Instructions: Anxiety (ED), Tachycardia (ED) Activity Restrictions/Additional Instructions: Thank you for choosing [facility] for your healthcare needs today. Please realize that you were seen in the emergency department and that we are providing you with an emergency medical screening exam and this may not be a complete and all exclusive of all testing and/or medical workup we may need to determine your element or severity of your illness. It is very important that you follow-up as instructed with your primary care provider or specialist for the additional evaluation and to discuss your medical treatment plan. You may return to the emergency department should you have concerns or if your condition changes or worsens in any way. Coding Level of Care Code ED Iphone Developer for Wilberto Roger
[2024-10-05 03:25] LABS: Troponin(5th) Baseline < 6 ng/L (0-10)
[2024-10-05 03:32] LABS: Alanine Aminotransferase 13 U/L (0-33); Albumin Level 4.8 g/dL (3.5-5.2); Alkaline Phosphatase 45 U/L (35-105); Aspartate Amino Transferase 18 U/L (0-32); Blood Urea Nitrogen 9 mg/dL (6-20); Calcium 9.6 mg/dL (8.5-10.5); Carbon Dioxide 24 mmol/L (22-29); Chloride 102 mmol/L (98-107); Creatinine Clr Calc Pharmacy 92.6262; Globulin 2.3 g/dL (1.3-4.6); Glucose 139 mg/dL (65-115); Magnesium 1.9 mg/dL (1.7-2.3); Osmolality Calculated 291 mOsm/kg (285-295); Sodium 140 mmol/L (136-145); Thyroid Stimulating Hormone 2.58 uIU/mL (0.27-4.20); Total Bilirubin 0.3 mg/dL (0.15-1.2); Total Protein 7.1 g/dL (6.6-8.7)
[2024-10-05 05:12] LABS: Troponin 5 2HR Delta 0.00001 ABS# (0-10)
[2024-10-05 05:13] LABS: Bilirubin Urine Negative (Negative); Blood Urine 2+ (Negative); Glucose Urine UA Negative (Normal); Ketones Urine Negative (Negative); Leukocyte Esterase Urine Negative (Negative); Nitrate Urine Negative (Negative); Protein Urine Negative (Negative); Urine Appearance Clear (CLEAR); Urine Color Yellow (Yellow)
[2024-10-05 05:18] LABS: Add Urine Microscopic? YES; Bacteria Urine 4+ /hpf; Hyaline Casts Urine 0-4 /lpf; RBC Urine 0-2 /hpf (0-2); Squamous Epithelial Cell Urine 0-5 /hpf (0-5); WBC Urine 0-5 /hpf (0-5)
[2024-10-05 05:20] LABS: Amphetamines Screen Urine Negative (Negative); Barbiturates Screen Urine Negative (Negative); Benzodiazepines Screen Urine Negative (Negative); Cocaine Screen Urine Negative (Negative); Opiate Screen Urine Negative (Negative); PCP Screen Urine Negative (Negative); THC Screen Urine Negative (Negative)
== END 2024-10-05 05:45 | disposition home or self-care (01) ==
PROVIDERS: Emergency Provider Emergency Medicine; PCP Family Medicine
DX: R00.0 Tachycardia, unspecified (principal); F41.9 Anxiety disorder, unspecified
CPT/HCPCS: 71045; 80053; 80306; 81001; 83735; 84443; 84484; 85025; 93005; 93010; 96374; 99285; J2060; J7030

== ENCOUNTER 2025-04-19 12:49 | Outpatient (CLI) | payer OTHER, BC, MEDICAID, SELFPAY ==
--- NOTE | 2025-04-19 12:45 | USCV_ITS ---
[facility] Age: 34 Gender: F : 1990 Exam Date: 04/19/2025 13:04 Ordering Phys: Julio C Morley M.D ([email or web address]) Technologist: PAULINE [place]am [place] [facility] [place]: Palpitations BP: 94 / 60 HR: 94 Rhythm: Sinus Technical Quality: Adequate MEASUREMENTS (Male / Female) Normal Values 2D ECHO LV Diastolic Diameter PLAX 3.9 cm 4.2 - 5.9 / 3.9 - 5.3 cm IVS Diastolic Thickness 0.7 cm 0.6 - 1.0 / 0.6 - 0.9 cm IVS Systolic Thickness 0.8 cm LVPW Diastolic Thickness 1.1 cm 0.6 - 1.0 / 0.6 - 0.9 cm LVPW Systolic Thickness 1.7 cm LVOT Diameter 2.0 cm LV Ejection Fraction 2D Teich 58.8 % LV Ejection Fraction MOD 4C 58.0 % LV Ejection Fraction MOD 2C 64.7 % LV Ejection Fraction 2C AL 64.8 % LA Diameter 2.0 cm RA Systolic Volume 4C AL 34.6 ml RA Systolic Volume 4C MOD 33.4 ml LA Sys Volume AL 39.5 cm cubed LA Sys Volume Index AL 24.7 cm cubed/m squared Aorta at Sinotubular Diameter 2.4 cm IVC Diameter 1.5 cm M-MODE LA Ao Ratio MM 1.2 AV Cusp Separation MM 1.8 cm DOPPLER AV Peak Velocity 109.0 cm/s LVOT Peak Velocity 95.0 cm/s AV Area Cont Eq vti 2.8 cm squared AV Area Cont Eq pk 2.6 cm squared MV Peak Velocity 82.0 cm/s MV Area PHT 8.7 cm squared Mitral E to A Ratio 1.1 TR Peak Velocity 114.0 cm/s TR Peak Gradient 5.2 mmHg TV Peak E Velocity 79.0 cm/s PV Peak Velocity 95.0 cm/s FINDINGS Left Ventricle Left ventricle is normal in size. LV systolic function is normal with EF of 55-60%. No regional wall motion abnormalities are seen. Right Ventricle Normal in size and function Right Atrium Normal in size Left Atrium Normal in size Mitral Valve Structurally normal mitral valve. Trace mitral regurgitation Aortic Valve Structurally normal aortic valve. No significant stenosis or regurgitation. Tricuspid Valve Insufficient TR jet to calculate RVSP Pulmonic Valve Not well visualized Pericardium Normal Aorta Normal in size IVC Appears to be normal CONCLUSIONS LV systolic function is normal with EF of 55-60% Trace mitral regurgitation Julio C Morley MD (Electronically Signed) Final Date: 21 April 2025 10:29 S
== END 2025-04-19 12:50 | disposition home or self-care (01) ==
LOC: RAD 12:50
PROVIDERS: Visit Provider Internal Medicine
DX: R00.2 Palpitations (principal)
CPT/HCPCS: 93306

== ENCOUNTER 2025-05-10 06:55 | Outpatient (CLI) | payer OTHER, BC, MEDICAID, SELFPAY ==
[2025-05-10] VITALS (35 sets, daily range): BP systolic 70–109; BP diastolic 38–69; PULSE 73–132; TEMP 35.8; O2SAT 83–100; BMI 23.4
[2025-05-10 09:38] LABS: Hematocrit 28.4 % (36-47); Hemoglobin 9.40 g/dL (11.27-16.99); Mean Corpuscular HGB Conc 33.1 g/dL (30-55); Mean Corpuscular Hemoglobin 29.5 pg (27-33); Mean Corpuscular Volume 89.0 fl (85-98); Nucleated Red Blood Cells % 0 %; Platelet Count 209 10^3/cmm (157-399); Red Blood Count 3.19 10^6/uL (3.85-5.65); White Blood Count 9.43 10^3/uL (3.29-11.43)
[2025-05-10 09:50] LABS: Alanine Aminotransferase 16 U/L (0-33); Albumin Level 3.1 g/dL (3.5-5.2); Alkaline Phosphatase 63 U/L (35-105); Anion Gap 13.2 (5-19); Aspartate Amino Transferase 21 U/L (0-32); Blood Urea Nitrogen 5 mg/dL (6-20); Calcium 8.4 mg/dL (8.5-10.5); Carbon Dioxide 23 mmol/L (22-29); Chloride 103 mmol/L (98-107); Creatinine Clr Calc Pharmacy 192.9252; Globulin 2.4 g/dL (1.3-4.6); Glucose 96 mg/dL (65-115); Osmolality Calculated 277 mOsm/kg (285-295); Potassium 4.2 mmol/L (3.5-5.1); Sodium 135 mmol/L (136-145); Total Protein 5.5 g/dL (6.6-8.7)
[2025-05-10 09:54] LABS: Glucose Urine UA Negative (Normal); Nitrate Urine Negative (Negative); Specific Gravity, Urine 1.018 (1.005-1.030)
[2025-05-10 10:19] LABS: UA Slide Review UA Slide Review Perf
[2025-05-10] MEDS: ondansetron 2 mg/ML SDV 2 mL 4 MG IVP (10:42)
[2025-05-10] MEDS: cefTRIAXone 1,000 mg SDV 1000 MG IVP (10:42)
== END 2025-05-10 11:31 | disposition home or self-care (01) ==
LOC: OPOB 07:02 → OBGYN 07:02
PROVIDERS: PCP Family Medicine; Visit Provider Family Medicine
DX: O26.899 Other specified pregnancy related conditions, unspecified trimester (principal); Z3A.00 Weeks of gestation of pregnancy not specified; R42 Dizziness and giddiness
CPT/HCPCS: 36415; 59025; 80053; 81001; 85025; 87086; 99211; J0696; J2405; J7120

== ENCOUNTER 2025-05-15 10:10 | Outpatient (CLI) | payer OTHER, BC, MEDICAID, SELFPAY ==
[2025-05-15 10:15] VITALS: BMI 20.8
[2025-05-15 10:19] VITALS: BP 110/78; PULSE 96
[2025-05-15 10:34] VITALS: BP 101/67; PULSE 95
[2025-05-15 10:43] LABS: Glucose Urine UA Negative (Normal); Nitrate Urine Negative (Negative); Specific Gravity, Urine 1.026 (1.005-1.030)
[2025-05-15 10:49] LABS: Universal Test for UA Present (0)
[2025-05-15 10:53] VITALS: BP 108/64; PULSE 97
[2025-05-15 11:03] LABS: UA Manual Slide Review YES
[2025-05-15 11:24] VITALS: BP 94/51; PULSE 111
[2025-05-15] MEDS: ondansetron 2 mg/ML SDV 2 mL 4 MG IVP (11:42)
[2025-05-15 11:54] VITALS: BP 97/54; PULSE 110
[2025-05-15 12:13] VITALS: BP 97/54; PULSE 110; RESP 14
== END 2025-05-15 12:15 | disposition home or self-care (01) ==
LOC: OPOB 10:13 → OBGYN 10:14
PROVIDERS: PCP Family Medicine; Visit Provider Family Medicine
DX: O26.899 Other specified pregnancy related conditions, unspecified trimester (principal); Z3A.00 Weeks of gestation of pregnancy not specified; R11.0 Nausea; R42 Dizziness and giddiness
CPT/HCPCS: 59025; 81001; 96374; 99211; J2405; J7121

== ENCOUNTER 2025-06-05 09:25 | Outpatient (CLI) | payer OTHER, BC, MEDICAID, SELFPAY ==
[2025-06-05 09:25] VITALS: RESP 17; BMI 21.9
[2025-06-05 09:32] VITALS: BP 113/72; PULSE 89
[2025-06-05 09:54] VITALS: BP 109/69; PULSE 84
[2025-06-05 10:09] VITALS: BP 105/70; PULSE 90
== END 2025-06-05 10:21 | disposition home or self-care (01) ==
LOC: OPOB 09:28 → OBGYN 09:28
PROVIDERS: PCP Family Medicine; Visit Provider Family Medicine
DX: O26.899 Other specified pregnancy related conditions, unspecified trimester (principal); Z3A.00 Weeks of gestation of pregnancy not specified; R25.2 Cramp and spasm; R19.7 Diarrhea, unspecified
CPT/HCPCS: 59025; 99211

== ENCOUNTER 2025-06-25 09:25 | Outpatient (CLI) | payer OTHER, BC, MEDICAID, SELFPAY ==
[2025-06-25 09:30] VITALS: BMI 26.5
[2025-06-25 09:33] VITALS: BP 121/81; PULSE 100
[2025-06-25 09:39] VITALS: BP 107/71; PULSE 97
[2025-06-25 09:49] VITALS: BP 110/74; PULSE 96
[2025-06-25 10:04] VITALS: BP 108/73; PULSE 112
== END 2025-06-25 10:19 | disposition home or self-care (01) ==
LOC: OPOB 09:31 → OBGYN 09:32
PROVIDERS: PCP Family Medicine; Visit Provider Family Medicine
DX: O26.899 Other specified pregnancy related conditions, unspecified trimester (principal); Z3A.00 Weeks of gestation of pregnancy not specified; I95.9 Hypotension, unspecified
CPT/HCPCS: 59025; 99211

== ENCOUNTER 2025-07-02 15:23 | Outpatient (CLI) | payer OTHER, BC, MEDICAID, SELFPAY ==
[2025-07-02 15:27] VITALS: BMI 26.5
[2025-07-02 15:33] VITALS: BP 121/76; PULSE 93
[2025-07-02 15:48] VITALS: BP 107/65; PULSE 90
[2025-07-02 16:03] VITALS: BP 104/68; PULSE 97
== END 2025-07-02 16:10 | disposition home or self-care (01) ==
LOC: OPOB 15:24 → OBGYN 15:25
PROVIDERS: PCP Family Medicine; Visit Provider Family Medicine
DX: O26.899 Other specified pregnancy related conditions, unspecified trimester (principal); Z3A.00 Weeks of gestation of pregnancy not specified; R60.9 Edema, unspecified
CPT/HCPCS: 59025; 99211

== ENCOUNTER 2025-07-31 05:03 | Inpatient (IN) | payer OTHER, BC, MEDICAID, SELFPAY ==
--- NOTE | 2025-07-24 08:24 | ANES.PREANE2 ---
Pre-Anesthetic Assessment Height/Weight: Height 5 ft 7 in Preop Diagnosis: Planned Operation Date: 07/31/25 07:20 Proposed Procedures p Section Repeat 26446, O34.21, Z34.83(Not Applicable) - Alexia Regan MD Was Beta Art taken within 24 hours: N/A Was Clonidine taken within 24 hours: N/A Social No alcohol and No tobacco Exam alert, oriented x 3, clear to auscultation bilaterally and regular rate & rhythm Airway Submandibular: within normal limits Cervical ROM: within normal limits Mallampati: Class III Dentition: full Anesthetic Plan ASA status: 2 Anesthesia: Regional (specify below) Other: G5, P3 with 3 prior C-sections without issues Patient states that she has had low iron during but has not required any infusions Patient states that her blood pressure has been running low throughout Denies any cardiac or pulmonary issues No problems with baby that she knows of Will obtain labs morning of procedure Plan for routine with spinal Medications/Allergies Home Medications ?Medication ?Instructions ?Recorded ?Confirmed ?Last Taken ?Type Vitamin 1 tab PO DAILY 03/02/25 06/25/25 06/25/25 History Iron (ferrous sulfate) 325 mg PO DAILY 06/25/25 06/25/25 06/25/25 History Allergies Allergy/AdvReac Type Severity Reaction Status Date / Time Penicillins Allergy Hives Verified 05/10/25 07:28 [facility] Anesthesia Medical History (Updated 03/10/25 @ 14:12 by Julio C Morley M.D) MILLER (generalized anxiety disorder) Moderate major depression Intermittent palpitations Anxiety and depression Migraine Surgical History S/P section Family History Grandmother Congestive heart failure (CHF) Myocardial infarction Hypertension Mother Stroke Social History Smoking and tobacco/nicotine status: never used tobacco/nicotine Alcohol intake: never Substance/Drug Use: never Female Reproductive History Para: 3 Spontaneous abortions: Yes (1) Data Anesthesia Cardiac Studies: Echocardiogram 04/19/25 Cardiac Event Monitor 08/30/24
[2025-07-31] VITALS (50 sets, daily range): BP systolic 103–121; BP diastolic 56–76; PULSE 72–121; RESP 15–16; TEMP 36.1–37.1; O2SAT 97–100; BMI 26.9
--- OUTSIDE RECORDS SUMMARY | 2025-07-31 05:09 | XMS_ITS | Data Portability ---
Author Organization [facility] Jean Pierre Abrams [facility] Address [address] [facility] [address] [place] [address] Assessment No assessment recorded. Plan of Treatment Reminders Order Date Submit Date Provider Last Modified By Organization Details Last Modified Time Details Appointments None record ed. Lab None record ed. Referral None record ed. Procedures None record ed. Surgeries None record ed. Imaging None record ed. Medication Orders None record ed. Patient TargetsNo targets recorded. Patient InstructionsNo instructions recorded. Reason for Referral None Reported. Results Created Date Observation Date Name Description Value Unit Range Abnormal Flag Note LastModifiedBy Organization Detail LastModifiedTime 05/15/2005/15/2025 GLUCO SE RADHA N glucose screen 108.0 mg/dL Not Available [facility] [address] [facility], [place], [address], 05/15/2025 11:24:08 05/15/20 25 05/15/2025 CBC WBC 8.7 x10 4.0-10 .5 Not Available [facility] [address] [facility], [place], [address], 05/15/2025 11:33:05 05/15/20 25 05/15/2025 CBC RBC 3.50 x10 3.50-5 .50 Not Available [facility] [address] [facility], [place], [address], 05/15/2025 11:33:05 05/15/20 25 05/15/2025 CBC HGB 10.4 g/dL 12.0-1 6.0 low Not Available [facility] [address] [facility], [place], [address], 05/15/2025 11:33:05 05/15/20 25 05/15/2025 CBC HCT 31.3 % 37.0-4 7.0 low Not Available [facility] [address] [facility], [place], [address], 05/15/2025 11:33:05 05/15/20 25 05/15/2025 CBC MCV 90.7 fL 80.0-9 9.9 Not Available [facility] [address] [facility] [address], [place], [address], 05/15/2025 11:33:05 05/15/20 25 05/15/2025 CBC MCH 30.0 pg 27.0-3 2.0 Not Available [facility] [address] [facility], [place], [address], 05/15/2025 11:33:05 05/15/20 25 05/15/2025 CBC MCHC 33.1 g/dL 32.0-3 6.0 Not Available [facility] [address] [facility], [place], [address], 05/15/2025 11:33:05 05/15/2005/15/2025 CBC RDW 13.0 % 11.5-1 4.5 Not Available [facility] [address] [facility], [place], [address], 05/15/2025 11:33:05 05/15/20 25 05/15/2025 CBC plt 256.0 x10 140.0- 451.0 Not Available [facility] [address] [facility], [place], [address], 05/15/2025 11:33:05 05/15/20 25 05/15/2025 CBC lymphocytes % 17.8 % 20.0-5 0.0 low Not Available [facility] [address] [facility] [address], [place], [address], 05/15/2025 11:33:05 05/15/20 25 05/15/2025 CBC granulcytes % 76.2 % 30.0-7 0.0 high Not Available [facility] [address] [facility] [address], [place], [address], 05/15/2025 11:33:05 05/15/20 25 05/15/2025 CBC monocytes % 5.3 % 2.0-16 .0 Not Available [facility] [address] [facility] [address], [place], [address], 05/15/2025 11:33:05 05/15/20 25 05/15/2025 CBC granulcytes# 6.6 x10 Not Navya ilable [facility] [address] [address], [place], [address], 05/15/2025 11:33:05 05/15/20 25 05/15/2025 CBC lymphocytes # 1.5 x10 Not Available [facility] [address] [address], [place], [address], 05/15/2025 11:33:05 05/15/20 25 05/15/2025 CBC monocytes # 0.5 x10 Not Avai lable [facility] [address] [address], [place], [address], 05/15/2025 11:33:05 05/15/20 25 05/16/2025 IRON, TIBC AND CADEN TIN PANEL iron, total 132 mcg/d L 40-190 normal Not Available [employer] [facility] [address] [address] , [place], [address], 05/16/2025 10:40:16 05/15/20 25 05/16/2025 IRON, TIBC AND CADEN TIN PANEL iron binding capacity 452 mcg/d L_(ca lc) 250-45 0 high Not Available [facility] [address] [address] [place], [address], 05/16/2025 10:40:16 05/15/20 25 05/16/2025 IRON, TIBC AND CADEN TIN PANEL % saturation 29 %_(ca lc) 16-45 normal Not Available [facility] [address] [place], [address], 05/16/2025 10:40:16 05/15/20 25 05/16/2025 IRON, TIBC AND CADEN TIN PANEL ferritin 9 NG/mL 16-154 low Not Available [facility] [address] [address] [place], [address], 05/16/2025 10:40:16 06/19/20 25 , obste tric, follo w-up No observ ation record ed. [email or web address] [address], [address], 06/20/2025 09:27:37 Result Notes None recorded. Problems Name Problem SNOMED Code Status Onset Date Resolution Date Notes Provider Name and Address Organization Details Recorded Time Contraception care management Active 2022 [facility] 48037312 Active 2024 [facility] 15:51:12 Deliveries by 146405685 Active 2024 Alexia Regan MD [address] [place] [address], [address], [facility] 15:57:08 Deliveries by 370011571 Active 2024 Alexia Regan MD [address] [place], [address], [facility] 5 15:57:08 Anxiety 68935235 Active 2024 SINDHU DAY null, [facility]athy[facility] 5 10:38:58 Anxiety 03064633 Active 2024 SINDHU DAY [facility], [facility] L[facility]LKathyC. 5 10:38:58 Problem Notes None recorded. Procedures Surgical History Date Name Laterality Status Provider Name and Address Organization Details Recorded Time delivery completed DAMION BAKER [facility] 12/05/2024 12:00:02 Imaging Results None recorded. Procedure Notes None recorded. Medical Equipment None Reported. Allergies Allergen ID Allergen Name Allergen Category Reaction Reaction Severity Criticality Documentation Date Start Date Code Code System Note Provider Name and Address Organization Details Recorded Time 06782 penicilli n V potassium medicatio n hives Not available Not available 05/02/2023 5 RxNorm React ion: Hives ; Comme nt: Recor ded 08/22 1:38P M by Miguelina guzman, ZAINAB, Offic e Visit ; Promo roberto carlos; Theodore dooley ce: *; Reaso n: Drug aller gy; ; Not Available [facility] 02:24:07 Medications Name Sig Start Date Stop Date Status Note LastModified by Organization Details LastModified Time cyclobenz aprine 10 mg tablet TAKE 1 TABLET BY MOUTH AT BEDTIME NEEDED 12/05 completed Not Available Not Available Not Available buspirone 5 mg tablet TAKE ONE TABLET BY MOUTH TWICE DAILY 12/05 completed Not Available Not Available Not Available doxycycli ne hyclate 100 mg capsule TAKE ONE CAPSULE BY MOUTH TWICE DAILY FOR seven DAYS 03/15 completed Not Available Not Available Not Available valacyclo vir 1 gram tablet TAKE 2 TABLETS BY MOUTH TWICE DAILY FOR ONE DAY 04/12 completed Not Available Not Available Not Available sumatript an 25 mg tablet TAKE ONE TABLET BY MOUTH AT ONSET of HEADACHE ; IF no RELIEF MAY REPEAT ONE TABLET AFTER AT least TWO hours. max = FOUR TABLETS in 24 hours 12/05 completed Not Available Not Available Not Available ondansetr on HCl 4 mg tablet TAKE ONE TABLET BY MOUTH THREE TIMES DAILY for 30 days 05/15 completed Not Available Not Available Not Available sumatript an 50 mg tablet TAKE ONE TABLET BY MOUTH AT ONSET OF MIGRAINE , MAY REPEAT ONCE IN TWO HOURS 12/05 completed Not Available Not Available Not Available cephalexi n 500 mg capsule TAKE ONE CAPSULE BY MOUTH TWICE DAILY FOR ten DAYS 12/05 completed Not Available Not Available Not Available promethaz ine 25 mg tablet TAKE ONE TABLET BY MOUTH AT ONSET OF MIGRAINE 12/05 completed Not Available Not Available Not Available buspirone 7.5 mg tablet TAKE ONE TABLET BY MOUTH TWICE DAILY 12/05 completed Not Available Not Available Not Available hydroxyzi ne HCl 25 mg tablet TAKE ONE TABLET BY MOUTH TWICE DAILY NEEDED FOR ITCHING 12/05 completed Not Available Not Available Not Available ibuprofen 600 mg tablet TAKE ONE TABLET BY MOUTH EVERY 8 HOURS NEEDED FOR PAIN 12/05 completed Not Available Not Available Not Available propranol ol 20 mg tablet as needed 12/05 completed Not Available Not Available Not Available buspirone 15 mg tablet TAKE ONE TABLET BY MOUTH TWICE DAILY 05/15 completed Not Available Not Available Not Available azithromy tramaine 500 mg tablet TAKE ONE TABLET BY MOUTH DAILY FOR FIVE DAYS 03/15 completed Not Available Not Available Not Available escitalop yakov 20 mg tablet TAKE ONE TABLET BY MOUTH DAILY 12/05 completed Not Available Not Available Not Available bupropion HCl XL 300 mg 24 hr tablet, extended release TAKE ONE TABLET BY MOUTH EVERY MORNING 05/30 completed Isabel 1/2. Weaning herself off. Not Available Not Available Not Available bupropion HCl XL 150 mg 24 hr tablet, extended release TAKE ONE TABLET BY MOUTH DAILY for SEVEN DAYS THEN ONE TABLET BY MOUTH EVERY OTHER DAY for ONE WEEK 01/11 completed Not Available Not Available Not Available metoprolo l tartrate 25 mg tablet take one-half tablet BY MOUTH TWICE DAILY 12/05 completed Not Available Not Available Not Available nitrofura ntoin monohydra te/macroc rystals 100 mg capsule TAKE ONE CAPSULE BY MOUTH TWICE DAILY for FIVE DAY 05/30 completed Not Available Not Available Not Available promethaz ine po at onset of migraine 12/05 completed Not Available Not Available Not Available Lexapro daily 12/05 completed Not Available Not Available Not Available Ortho Tri-Cycle n LO (28) daily 03/15 completed DUPLICAT E MED ON CHART Not Available Not Available Not Available FeroSul 325 mg (65 mg iron) tablet TAKE ONE TABLET BY MOUTH DAILY 07/25 completed Not Available Not Available Not Available Tri-Lo-Sp rintec 0.18 mg/0.215 mg/0.25 mg-0.025 mg tablet TAKE ONE TABLET BY MOUTH every DAY FOR tewnty-e ight DAYS 12/05 completed Not Available Not Available Not Available Vitals Date Recorded Body height Body mass index (BMI) Body weight Body temperature Oxygen saturation Oxygen saturation in Arterial blood by Pulse oximetry Heart rate Systolic And Diastolic Provider Name and Address Organization Details Last Updated DateTime 5 160.02 cm 25.3 kg/m2 15018.7 1 g 98.8 [degF] 99 % 99 % 126 /min 90/60 mm[Hg] SINDHU DAY [facility] 5 12:06:26 Date Recorded Body height Body mass index (BMI) Body weight Body temperature Oxygen saturation Oxygen saturation in Arterial blood by Pulse oximetry Heart rate Systolic And Diastolic Provider Name and Address Organization Details Last Updated DateTime 5 160.02 cm 26.6 kg/m2 22086.8 6 g 97.7 [degF] 98 % 98 % 94 /min 108/68 mm[Hg] DAMION BAKER [facility] 5 15:08:33 Date Recorded Body height Body mass index (BMI) Body weight Body temperature Oxygen saturation Oxygen saturation in Arterial blood by Pulse oximetry Heart rate Systolic And Diastolic Provider Name and Address Organization Details Last Updated DateTime 5 160.02 cm 26.2 kg/m2 08371.6 7 g 97.7 [degF] 99 % 99 % 92 /min 112/64 mm[Hg] DAMION [facility] 5 10:11:50 Date Recorded Body height Body mass index (BMI) Body weight Body temperature Oxygen saturation Oxygen saturation in Arterial blood by Pulse oximetry Heart rate Systolic And Diastolic Provider Name and Address Organization Details Last Updated DateTime 160.02 cm 26.2 kg/m2 48249.6 7 g 97.8 [degF] 98 % 98 % 101 /min 110/68 mm[Hg] DAMION [facility] 15:02:10 Date Recorded Body height Body mass index (BMI) Body weight Body temperature Oxygen saturation Oxygen saturation in Arterial blood by Pulse oximetry Heart rate Systolic And Diastolic Provider Name and Address Organization Details Last Updated DateTime 160.02 cm 26.9 kg/m2 09894.0 4 g 98.6 [degF] 98 % 98 % 85 /min 118/80 mm[Hg] SINDHU DAY [facility] 5 10:27:46 Social History Question Answer Notes LastModified by [employer] Details LastModified Time Tobacco Smoking Status Never Smoker DAMION BAKER [facility] 12/05/2024 11:59:50 What Was The Date Of Your Most Recent Tobacco Screening? 04/12/2025 [email or web address] Information not available 04/12/2025 Sex: Unknown Functional Status Question Answer Note LastModified by [employer] Details LastModified Time Do you use any illicit or recreational drugs? No Information not available 12/05/2024 What is your level of alcohol consumption? None [email or web address] Information not available 12/05/2024 Mental Status None recorded. Family History Relationship Description Onset Age of this Age Resolved Age Notes LastModified by Organization Details LastModified Time Father No current problems or disability [email or web address] Not available 06/2025 10:39:10 Mother No current problems or disability [email or web address] Not available 07/ 06/2025 10:39:10 Medical History Condition Response Coronary Artery Disease N Gout N Other N Blood Diseases N Kidney Stones N Hyperthyroidism N Blood Transfusion N Breast Cancer N Depression N COPD N Lung Disease N Hypothyroidism N Developmental or Behavioral Disorders N Defects or Inherited Disease N Breast Problem N Difficulty Swallowing N Anesthesia Complications N Meniere's disease N Anxiety Disorder Y Muscle, Joint, or Bone Problems N Vision or Eye Problems N Arthritis N Polyps N Infertility N Cancer N Varicosities N Stroke N Endometriosis N Bladder or Kidney Problems N High Cholesterol N Liver Disease N Headaches N Fibromyalgia N Kidney Disease N Allergies/Hayfever N Heart Problems N Ear or Hearing Problems N Hospitalizations N Thyroid Problems N GI Problems N ADD/ADHD N Skin Problems N Eating Disorder N Anemia N Constipation N Mental Illness N Ovarian Cancer N Diabetes N Bedwetting N Seizures/Epilepsy N Tuberculosis N Eczema N Diverticulitis N Abuse/Domestic Violence N Asthma N Reflux/GERD N Hepatitis N Heart Disease N Pulmonary Embolism N Pre-Eclampsia N Hypertension N Chronic Ear Infections N Osteoporosis N Chicken Pox N Autism Spectrum Disorder (ASD) N Thrombophilias N Gynecological History Statement/Question Response Abnormal Pap Date of LMP 10/30/2024 LMP Definite Obstetrics History GPAL:G 5 P 3 0 1 3 Type Value Full Term 3 Spontaneous 1 Living 3 Total 5 Immunizations Vaccine Type Date Status Note Provider Nam e and Address Organization Details Recorded Time DTP 2 completed Not Available [facility] 07/25/2025 10:21:45 OPV, trivalent 2 completed Not Available [facility] 07/25/2025 10:21:45 MMR 4 completed Not Available [facility] 07/25/2025 10:21:45 Hib (HbOC) 4 completed Not Available [facility] 07/25/2025 10:21:45 DTP 4 completed Not Available [facility] 07/25/2025 10:21:45 OPV, trivalent 4 completed Not Available [facility] 07/25/2025 10:21:45 DTP 4 completed Not Available [facility] 07/25/2025 10:21:45 OPV, trivalent 4 completed Not Available [facility] 07/25/2025 10:21:45 DTP 5 completed Not Available [facility] 07/25/2025 10:21:45 Hep B, unspecified formulation 5 completed Not Available [facility] 07/25/2025 10:21:45 Hib (PRP-T) 6 completed Not Available [facility] 07/25/2025 10:21:45 MMR 6 completed Not Available [facility] 07/25/2025 10:21:45 Hep B, unspecified formulation 6 completed Not Available [facility] 07/25/2025 10:21:45 OPV, trivalent 6 completed Not Available [facility] 07/25/2025 10:21:45 DTaP 6 completed Not Available [facility] 07/25/2025 10:21:45 Hep B, unspecified formulation 7 completed Not Available [facility] 07/25/2025 10:21:45 meningococcal MCV4P 9 completed Not Available [facility] 07/25/2025 10:21:45 HPV, quadrivalent 9 completed Not Available [facility] 07/25/2025 10:21:45 COVID-19, mRNA, LNP-S, PF, 100 mcg/0.5mL dose or 50 mcg/0.25mL dose 1 completed Not Available [facility] 07/25/2025 10:21:45 COVID-19, mRNA, LNP-S, PF, 100 mcg/0.5mL dose or 50 mcg/0.25mL dose 1 completed Not Available [facility] 07/25/2025 10:21:45 COVID-19, mRNA, LNP-S, PF, 100 mcg/0.5mL dose or 50 mcg/0.25mL dose 2 completed Not Available [facility] 07/25/2025 10:21:45 RSV, bivalent, protein subunit RSVpreF, diluent reconstituted, 0.5 mL, PF 5 completed Not Available [facility] 07/25/2025 10:21:45 Tdap 5 completed Not Available [facility] 07/25/2025 10:21:45 Influenza, split virus, quadrivalent, preservative 0 completed Not Available [facility] 05/02/2023 02:22:51 Influenza, split virus, quadrivalent, preservative 1 completed Not Available [facility] 05/02/2023 02:22:51 TST-PPD intradermal 9 completed Not Available [facility] 05/02/2023 02:22:51 TST-PPD intradermal 1 completed Not Available [facility] 05/02/2023 02:22:52 tetanus toxoid, adsorbed 6 completed Not Available [facility] 05/02/2023 02:22:57 Hep B, adult 0 completed Not Available [facility] 05/02/2023 02:22:58 DTaP, unspecified formulation 0 completed Not Available [facility] 05/02/2023 02:23:00 Past Encounters Encounter ID Performer Location Encounter Start Date Encounter Closed Date Diagnosis/Indication Diagnosis SNOMED-CT Code Diagnosis ICD10 Code Diagnosis IMO Codes Diagnosis Note [id number] Zacarias Ravi MD [facility] ([facility]) [address] [place] [phone] 01/07/2023 09:08:47 01/07/2023 10:20:30 [id number] Alexia Regan MD [facility] ([facility]) [address] [place] [id number] 12/05/2024 11:44:51 12/07/2024 15:44:02 Gestation period, 5 weeks 10562666 Z3A.01 I reviewed what to avoid in and the plan of care. 12/05/24. Normal pre gnancy in multigravida 3375633179 85670 Z34.81 Nausea and vomiting in 9321367500 O21.9 Deliveries by [id number] O82 discussed plan for repeat at 39 weeks. 12/05/24 Anxiety 36600568 F41.9 PCP was weaning off bupropion but if her symptoms are stable on it then I recommend continuing . 12/05/24. [id number] Alexia Regan MD [facility] ([facility]) [address] [place] [phone] 5 01/17/2025 11:02:42 01/17/2025 15:33:39 [id number] Alexia Regan MD [facility] ([facility]) [address] [place] [id number] 01/11/2025 15:40:13 01/12/2025 08:08:13 Normal in multigravida 1673715176 77963 Z34.81 Gestation period, 10 weeks 76843436 Z3A.10 Deliveries by [id number] O82 discussed plan for repeat at 39 weeks. 12/05/24 Anxiety 39190078 F41.9 PCP was weaning off bupropion but if her symptoms are stable on it then I recommend continuing . 12/05/24. [id number] Alexia Regan MD [facility] ([facility]) [address] [place] [id number] 01/13/2025 12:03:00 01/13/2025 13:58:17 90114965 Z33.1 [id number] Alexia Regan MD [facility] ([facility]) [address] [place] [id number] 5 02/09/2025 14:01:24 02/10/2025 13:44:04 Gestation period, 14 weeks 04399468 Z3A.14 8668153 Multigravida 671525997 Z 34.82 11837150 Sterilizat ion requested 703303379 Z30.2 [id number] will plan to sign consent form at 28 week appt. 02/09/2025 Urinary tr act infection in 606753561 O23.42 1895978 Positive nitrates today 02/09/2025 Low grade squamous intraepithelial lesion on cervical Papanicolaou smear 9907577357 9105 R87.612 10382239 pt was advised to make f/u appt for colposcopy . 02/09/2025 Deliveries by [id number] O82 discussed plan for repeat at 39 weeks. 12/05/24 [id number] Alexia Regan MD [facility] ([facility]) [address] [place] [id number] 5 03/13/2025 10:31:15 03/14/2025 16:07:59 Gestation period, 19 weeks 90200423 Z3A.19 2591708 Multigravida 188382815 Z 34.82 66488574 Sterevette vasques requested 059393160 Z30.2 [id number] will plan to sign consent form at 28 week appt. 02/09/2025 [id number] Alexia Regan MD [facility] ([facility]) [address] [place] [id number] 5 03/23/2025 08:44:28 03/24/2025 09:34:19 [id number] Alexia Regan MD [facility] ([facility]) [address] [place] [id number] 5 04/12/2025 10:27:25 04/13/2025 13:57:28 Gestation period, 23 weeks 49582093 Z3A.23 6311215 Multigravida 664367963 Z 34.82 91871213 [id number] Alexia Regan MD [facility] ([facility]) [address] [place] [id number] 5 05/15/2025 09:14:24 05/16/2025 10:07:15 Gestation period, 28 weeks 41424576 Z3A.28 9042879 Multigravida 726531616 Z 34.83 62154102 Anemia 923301026 D64.9 7534041 She is taking a daily iron supplement since last week when she was in labor and delivery. We will check iron studies today. Low blood pressure 34739 003 I95.9 07888557 Patient believes she is drinking enough fluids. Her blood pressure did improve when she was at labor and delivery and received a 1 L bolus. Her symptoms seem to be orthostati c related. She was advised to eat or drink something with calories at least every 2 hours while awake. She was sent to labor and delivery for IV fluids. [id number] Alexia Regan MD [facility] ([facility]) [address] [place] [id number] 05/30/2025 10:06:04 05/31/2025 04:01:27 Multigravida 046112185 Z34.83 28783909 Anemia 729563919 D64.9 8084959 cont iron supplement 05/30/25 Low blood pressure 93755 003 I95.9 38891890 fewer episodes that arent as bad 05/30/25 Gestation period, 30 weeks 49025359 Z3A.30 6822032 Fundal hei ght high for dates 447300578 Z34.90 25332460 [id number] Alexia Regan MD [facility] ([facility]) [address] [place], [place] [phone] 06/14/2025 11:59:58 06/28/2025 04:06:41 Multigravida 641242834 Z34.83 62984601 Anemia 927990760 D64.9 1079386 cont iron supplement 05/30/25 Low blood pressure 30884 003 I95.9 79123722 fewer episodes that arent as bad 05/30/25 Gestation period, 32 weeks 7148831 Z3A.32 7523112 Past pregn malorie history of section 611068819 O34.219 74172716 [id number] Alexia Regan MD [facility] ([facility]) [address] [place], [place] [phone] 06/14/2025 11:07:45 06/14/2025 16:39:20 [id number] Alexia Regan MD [facility] ([facility]) [address] [place], [place] [phone] 06/28/2025 14:45:17 07/05/2025 08:15:33 Gestation period, 34 weeks 32082297 Z3A.34 3393785 Multigravida 161579084 Z 34.83 60527350 Anemia 612656366 D64.9 2511757 cont iron supplement 05/30/25 Low blood pressure 57173 003 I95.9 52434615 fewer episodes that arent as bad 05/30/25 Past pregn malorie history of section 329651332 O34.219 37041239 [id number] Alexia Regan MD [facility] ([facility]) [address] [place], [place] [phone] 07/12/2025 10:03:19 07/17/2025 12:18:56 Multigravida 127884714 Z34.83 49655227 Anemia 316726699 D64.9 1883816 cont iron supplement 05/30/25 Low blood pressure 60443 003 I95.9 17034491 fewer episodes that arent as bad 05/30/25 Past pregn malorie history of section 532904061 O34.219 48160646 Gestation period, 36 weeks 17773480 Z3A.36 8146983 [id number] Alexia Regan MD [facility] ([facility]) [address] [place] [id number] 5 07/18/2025 14:54:50 07/21/2025 14:01:46 Gestation period, 37 weeks 98325702 Z3A.37 3146277 Pain in female pelvis 42 8825839 O26.899 R10.20 070834 [id number] Alexia Regan MD [facility] ([facility]) [address] [place] [id number] 5 07/25/2025 10:21:18 07/26/2025 10:57:49 Gestation period, 38 weeks [id number] Z3A.38 [id number] Multigravida [id number] Z 34.83 [id number] Anemia [id number] D64.9 [id number] cont iron supplement 05/30/25 Low blood pressure 78489 003 I95.9 [id number] fewer episodes that arent as bad 05/30/25 Past pregn malorie history of section [id number] O34.219 [id number] Consultation [id number] Z3 0.09 [id number] pt still desires tubal ligation 07/25/25 Health Concerns Section Related Observation LastModified by Organization Detai ls LastModified Time None Recorded Concern Status LastModified by Organization Details LastModified Time None Recorded Advance Directives Directive None Recorded Payers Insurance Date Sequence Insurance Name Policy Number Policy Zheng Covered Member ID Zheng Member ID Guarantor Name 07/22/2025 1 [place] [id number] Lucie Dickinson [id number] Lucie Dickinson 07/22/2025 2 [place] [id number] Lucie Dickinson [id number] Lucie Dickinson 01/13/2025 2 [place] Lucie Dickinson [id number] Lucie Dickinson 07/09/2025 [place] [facility] (INSTITUTIONAL ) [id number] Lucie Dickinson [id number] Lucie Dickinson 07/09/2025 [place] [id number] Lucie Dickinson [id number] Lucie Dickinson 01/08/2024 1 [employer] Lucie Ricketts Alok [id number] Lucie Dickinson 12/02/2024 1 [facility] (PP[facility] Lucie Jamarcus Dickinson [id number] Lucie Dickinson Notes Date Note Type Note Provider Name and Address Organization Details Recorded Time 06/14/20 25 text/ht ml jr ob routineReported by PatientHPIFor associated symptoms, patient reportsabdominal pain,cramping,nausea,emesis,edema , anddizzinessbut reportsno contractions,normal movement,no bleeding, andno headache.ROS as noted in the HPI Alexia Regan MD [address] [place] [address], [phone], [facility] 06/25/2025 12:56:52 06/28/20 25 text/ht ml jr ob routineReported by PatientHPIFor associated symptoms, patient reportscramping,visual changes,headache, anddizzinessbut reportsno abdominal pain,no contractions,normal movement,no dysuria,no frequency,no nausea,no emesis, andno constipation. Alexia Regan MD [address] [place] [address], [phone], [facility] 07/04/2025 12:32:16 07/12/20 25 text/ht ml jr ob routineReported by PatientHPIFor associated symptoms, patient reportscrampingbut reportsno abdominal pain,no contractions,normal movement,no bleeding,no nausea,no emesis,no constipation,no visual changes,no headache, andno dizziness. Alexia Regan MD [address] [place] [address], [phone], [facility] 07/12/2025 10:49:11 07/18/20 25 text/ht ml jr ob routineReported by PatientHPIFor associated symptoms, patient reportscrampinganddizzinessbut reportsno abdominal pain,normal movement,no bleeding,no nausea, andno headache. Alexia Regan MD [address] [place], [phone], [facility] 07/20/2025 16:56:58 07/25/20 25 text/ht ml jr ob routineReported by PatientHPIFor associated symptoms, patient reportsabdominal pain,cramping,nausea,emesis, andedemabut reportsno contractions,normal movement,no bleeding,no headache, andno dizziness.ROS as noted in the HPI Alexia Regan MD [address] [place], [phone], [facility] 07/25/2025 10:53:30 OBGyn Episode Ob Episode Information Episode Created Date Number of Fetuses Patient Bloodtype Patient rh Status Prepregnancy Weight lbs Domestic Partner Domestic Partner Phone Father Name Hose Inspector Status 12/06/19 25 1 CLOSED Fetus Data First Name Last Name Admitted to NICU Weight (g) Sex Living Outcome Pediatric Complications Fetus ID Race Codes Race Delivery Type 3175.14 4 F [id number] Flako Calculation Initial Flako Date Initial Exam Date Initial Exam Provider Initial Ultrasound Date Last Menstrual Period Date Ultra Sound Weeks Gestation 0 Eighteen To Twenty Week Flako Update Ultra Sound Date Fundal Height At Umbil Quickening Date Ultra Sound Latest Weeks Gestation Final Flako Confirmed By Final Flako Confirmed Date Final Flako Date Ultra Sound Latest Days Gestation 0 0 Menstrual History Last Menstrual Date Menses Monthly On Bcp Conception Prior Menses Frequency Hcg Plus Date Menarche Onset Age Delivery Information Delivery Date Delivery Type Labor Anesthesia Weeks Gestation Incision Type Labor Labor Length Hrs Delivered By Post Complications Tubal Sterilization Discharge Date Comments 4 Regional-Sp jolynn mandel Discharge Information Feeding Method Contraceptive Method Maternal HG B and HCT Levels Ob Episode Information Episode Created Date Number of Fetuses Patient Bloodtype Patient rh Status Prepregnancy Weight lbs Domestic Partner Domestic Partner Phone Father Name Hose Inspector Status 12/06/19 25 1 A Positive OPEN Fetus Data First Name Last Name Admitted to NICU Weight (g) Sex Living Outcome Pediatric Complications Fetus ID Race Codes Race Delivery Type [id number] Problems Problem Notes Prior c-sections x3, all FT, no hx of HTN/GDMno complications with prior pregnancies Problem Name Start Date End Date Resolution Snomed Code Not e Deliveries by 01/11/2025 366113 004 Anxiety 01/11/2025 [id number] Flako Calculation Initial Flako Date Initial Exam Date Initial Exam Provider Initial Ultrasound Date Last Menstrual Period Date Ultra Sound Weeks Gestation 08/06/2025 12/05/2024 10/30/2024 0 Eighteen To Twenty Week Flako Update Ultra Sound Date Fundal Height At Umbil Quickening Date Ultra Sound Latest Weeks Gestation Final Flako Confirmed By Final Flako Confirmed Date Final Flako Date Ultra Sound Latest Days Gestation 0 0 Pre-nito Flowsheet Flowsheet Date 12/05/2024 Gan Score Blood Edema Fundus Height Fundus Units Glucose Ketones Leukocytes Nitrite Labor Signs Protein Cervic Dilation Cervic Effacement Cervic Station Type Weight in lbs Pre/Post Dialysis Refused With clothes 116.633716647872 BP Diastolic BP Location Tested BP Systolic BP Type 78 R arm 114 sitting Fetus Heart Rate Present Fetus Movement Comments Flowsheet Date 01/11/2025 Gan Score Blood Edema Fundus Height Fundus Units Glucose Ketones Leukocytes Nitrite Labor Signs Protein Cervic Dilation Cervic Effacement Cervic Station Type Weight in lbs Pre/Post Dialysis Refused With clothes 120.234308733264 BP Diastolic BP Location Tested BP Systolic BP Type 68 L arm 104 sitting Fetus Heart Rate Present A 170 Fetus Movement Comments Flowsheet Date 01/13/2025 Gan Score Blood Edema Fundus Height Fundus Units Glucose Ketones Leukocytes Nitrite Labor Signs Protein Cervic Dilation Cervic Effacement Cervic Station Type Weight in lbs Pre/Post Dialysis Refused BP Diastolic BP Location Tested BP Systolic BP Type Fetus Heart Rate Present Fetus Movement Comments Flowsheet Date 01/17/2025 Gan Score Blood Edema Fundus Height Fundus Units Glucose Ketones Leukocytes Nitrite Labor Signs Protein Cervic Dilation Cervic Effacement Cervic Station Type Weight in lbs Pre/Post Dialysis Refused BP Diastolic BP Location Tested BP Systolic BP Type Fetus Heart Rate Present Fetus Movement Comments Flowsheet Date 02/09/2025 Gan Score Blood Edema Fundus Height Fundus Units Glucose Ketones Leukocytes Nitrite Labor Signs Protein Cervic Dilation Cervic Effacement Cervic Station 16 cm none 2+ Positive neg Type Weight in lbs Pre/Post Dialysis Refused With clothes 128.188100380781 BP Diastolic BP Location Tested BP Systolic BP Type 68 L arm 108 sitting Fetus Heart Rate Present A 155 Fetus Movement Comments Peds , wants a tubal after baby is born. Baby girl Harsh Flowsheet Date 03/13/2025 Gan Score Blood Edema Fundus Height Fundus Units Glucose Ketones Leukocytes Nitrite Labor Signs Protein Cervic Dilation Cervic Effacement Cervic Station 22 cm none trace Negative neg Type Weight in lbs Pre/Post Dialysis Refused With clothes 127.159805277224 BP Diastolic BP Location Tested BP Systolic BP Type 64 L arm 112 sitting Fetus Heart Rate Present A 145 Fetus Movement A Yes Comments Flowsheet Date 03/23/2025 Gan Score Blood Edema Fundus Height Fundus Units Glucose Ketones Leukocytes Nitrite Labor Signs Protein Cervic Dilation Cervic Effacement Cervic Station Type Weight in lbs Pre/Post Dialysis Refused BP Diastolic BP Location Tested BP Systolic BP Type Fetus Heart Rate Present Fetus Movement Comments Flowsheet Date 04/12/2025 Gan Score Blood Edema Fundus Height Fundus Units Glucose Ketones Leukocytes Nitrite Labor Signs Protein Cervic Dilation Cervic Effacement Cervic Station 26 cm none none Negative neg Type Weight in lbs Pre/Post Dialysis Refused Weight 129.67696223781 BP Diastolic BP Location Tested BP Systolic BP Type 60 115 Fetus Heart Rate Present A 1 Fetus Movement A Yes Comments Gtt next Flowsheet Date 05/15/2025 Gan Score Blood Edema Fundus Height Fundus Units Glucose Ketones Leukocytes Nitrite Labor Signs Protein Cervic Dilation Cervic Effacement Cervic Station 33 cm none trace Negative trace Type Weight in lbs Pre/Post Dialysis Refused Weight 135.215125974453 BP Diastolic BP Location Tested BP Systolic BP Type 60 90 Fetus Heart Rate Present A 145 Fetus Movement A Yes Comments kick counts handout. Pt. darren t to OB due to low BP 70/38 last week. Tubal consent signed today. Flowsheet Date 05/23/2025 Gan Score Blood Edema Fundus Height Fundus Units Glucose Ketones Leukocytes Nitrite Labor Signs Protein Cervic Dilation Cervic Effacement Cervic Station Type Weight in lbs Pre/Post Dialysis Refused BP Diastolic BP Location Tested BP Systolic BP Type Fetus Heart Rate Present Fetus Movement Comments Called labor & delivery: rep eat c/s scheduled for 07/31 at 7am. Check in time 5am. Anesthesia consult scheduled for 07/24. Flowsheet Date 05/30/2025 Gan Score Blood Edema Fundus Height Fundus Units Glucose Ketones Leukocytes Nitrite Labor Signs Protein Cervic Dilation Cervic Effacement Cervic Station 35 cm none trace Negative trace Type Weight in lbs Pre/Post Dialysis Refused With clothes 143.013573599262 BP Diastolic BP Location Tested BP Systolic BP Type 72 L arm 100 standing Fetus Heart Rate Present A 148 Fetus Movement A Yes Comments Flowsheet Date 06/14/2025 Gan Score Blood Edema Fundus Height Fundus Units Glucose Ketones Leukocytes Nitrite Labor Signs Protein Cervic Dilation Cervic Effacement Cervic Station Type Weight in lbs Pre/Post Dialysis Refused BP Diastolic BP Location Tested BP Systolic BP Type Fetus Heart Rate Present Fetus Movement Comments Flowsheet Date 06/14/2025 Gan Score Blood Edema Fundus Height Fundus Units Glucose Ketones Leukocytes Nitrite Labor Signs Protein Cervic Dilation Cervic Effacement Cervic Station 35 cm none trace Negative trace Type Weight in lbs Pre/Post Dialysis Refused Weight 143.122190227885 BP Diastolic BP Location Tested BP Systolic BP Type 60 90 Fetus Heart Rate Present A 140 Fetus Movement A Yes Comments had u/s, results pending. RS V and TDAP Rx given today. Flowsheet Date 06/28/2025 Gan Score Blood Edema Fundus Height Fundus Units Glucose Ketones Leukocytes Nitrite Labor Signs Protein Cervic Dilation Cervic Effacement Cervic Station 36 cm none trace trace Type Weight in lbs Pre/Post Dialysis Refused With clothes 150.577806673069 BP Diastolic BP Location Tested BP Systolic BP Type 68 R arm 108 sitting Fetus Heart Rate Present A 145 Fetus Movement A Yes Comments growth and ADAM wnl Flowsheet Date 07/12/2025 Gan Score Blood Edema Fundus Height Fundus Units Glucose Ketones Leukocytes Nitrite Labor Signs Protein Cervic Dilation Cervic Effacement Cervic Station none 41 cm none trace Negative neg Type Weight in lbs Pre/Post Dialysis Refused With clothes 148.502226866945 BP Diastolic BP Location Tested BP Systolic BP Type 64 112 sitting Fetus Heart Rate Present A 135 Fetus Movement A Yes Comments Flowsheet Date 07/18/2025 Gan Score Blood Edema Fundus Height Fundus Units Glucose Ketones Leukocytes Nitrite Labor Signs Protein Cervic Dilation Cervic Effacement Cervic Station 41 cm none trace Negative trace 0cm Type Weight in lbs Pre/Post Dialysis Refused With clothes 148.354150577918 BP Diastolic BP Location Tested BP Systolic BP Type 68 R arm 110 sitting Fetus Heart Rate Present A 140 Fetus Movement A Yes Comments cervix closed, no ctx palpat ed Flowsheet Date 07/25/2025 Gan Score Blood Edema Fundus Height Fundus Units Glucose Ketones Leukocytes Nitrite Labor Signs Protein Cervic Dilation Cervic Effacement Cervic Station 43 cm none trace Negative trace Type Weight in lbs Pre/Post Dialysis Refused Weight 152.976166429927 BP Diastolic BP Location Tested BP Systolic BP Type 80 118 Fetus Heart Rate Present A 135 Fetus Movement A Yes Comments c/s with tubal Menstrual History Last Menstrual Date Menses Monthly On Bcp Conception Prior Menses Frequency Hcg Plus Date Menarche Onset Age 0110/30/2024 Genetic Screening And Infection History Question Response Note Patient's Age Will Be 35 Years Or Older At Estim ated Date of Delivery false Thalassemia (Kyrgyz, Mongolian, Mediterranean, Or Background): MCV < 80 false Neural Tube Defect (Meningomyelocele, Spina Bifi da, Or Anencephaly) false Congenital Heart Defect false Down Syndrome false Praneeth-Sachs (eg, Hinduism, Cajun, Serbian-Romanian) f alse Angélica Disease false Sickle Cell Disease Or Trait () false Hemophilia Or Other Blood Disorders false Muscular Dystrophy false Cystic Fibrosis false [place]'s Ch[place] false Intellectual Disability/Autism false If Yes, Was Person Tested For Fragile X? false Other Inherited Genetic Or Chromosomal Disorder false Maternal Metabolic Disorder (eg, Type 1 Diabetes , PKU) false Patient Or Baby's Father Had A Child With Defects Not Listed Above false Recurrent Loss, Or A Stillbirth false Medications (including Suppl ements, Vitamins, Herbs, OTC Drugs), Illicit/Recreational Drugs, Alcohol false If Yes, Agent(s) And Strength/Dosage false Any Other Genetic History false Live With Someone With TB Or Exposed To TB false Patient Or Partner Has History Of Genital Herpes false Rash Or Viral Illness Since Last Menstrual Perio d false History Of STD, Gonorrhea, Chlamydia, HPV, Syphi lis false Other Infection History false History of HIV false History of Hepatitis false Prior GBS-infected child false Hemoglobinopathy Or Carrier false Other Structural Defect false Recent Travel History Outside of Country false Mental Retardation/Autism false Delivery Information Delivery Date Delivery Type Labor Anesthesia Weeks Gestation Incision Type Labor Labor Length Hrs Delivered By Post Complications Tubal Sterilization Discharge Date Comments Discharge Information Feeding Method Contraceptive Method Maternal HG B and HCT Levels Ob Episode Information Episode Created Date Number of Fetuses Patient Bloodtype Patient rh Status Prepregnancy Weight lbs Domestic Partner Domestic Partner Phone Father Name Hose Inspector Status 12/06/19 25 1 CLOSED Fetus Data First Name Last Name Admitted to NICU Weight (g) Sex Living Outcome Pediatric Complications Fetus ID Race Codes Race Delivery Type 3175.14 4 F 7425 Flako Calculation Initial Flako Date Initial Exam Date Initial Exam Provider Initial Ultrasound Date Last Menstrual Period Date Ultra Sound Weeks Gestation 0 Eighteen To Twenty Week Flako Update Ultra Sound Date Fundal Height At Umbil Quickening Date Ultra Sound Latest Weeks Gestation Final Flako Confirmed By Final Flako Confirmed Date Final Flako Date Ultra Sound Latest Days Gestation 0 0 Menstrual History Last Menstrual Date Menses Monthly On Bcp Conception Prior Menses Frequency Hcg Plus Date Menarche Onset Age Delivery Information Delivery Date Delivery Type Labor Anesthesia Weeks Gestation Incision Type Labor Labor Length Hrs Delivered By Post Complications Tubal Sterilization Discharge Date Comments 0 Dr.Isrea mandel no complicat ions Discharge Information Feeding Method Contraceptive Method Maternal HG B and HCT Levels Ob Episode Information Episode Created Date Number of Fetuses Patient Bloodtype Patient rh Status Prepregnancy Weight lbs Domestic Partner Domestic Partner Phone Father Name Hose Inspector Status 12/06/19 1 CLOSED Fetus Data First Name Last Name Admitted to NICU Weight (g) Sex Living Outcome Pediatric Complications Fetus ID Race Codes Race Delivery Type 2721.55 2 M 7426 Flako Calculation Initial Flako Date Initial Exam Date Initial Exam Provider Initial Ultrasound Date Last Menstrual Period Date Ultra Sound Weeks Gestation 0 Eighteen To Twenty Week Flako Update Ultra Sound Date Fundal Height At Umbil Quickening Date Ultra Sound Latest Weeks Gestation Final Flako Confirmed By Final Flako Confirmed Date Final Flako Date Ultra Sound Latest Days Gestation 0 0 Menstrual History Last Menstrual Date Menses Monthly On Bcp Conception Prior Menses Frequency Hcg Plus Date Menarche Onset Age Delivery Information Delivery Date Delivery Type Labor Anesthesia Weeks Gestation Incision Type Labor Labor Length Hrs Delivered By Post Complications Tubal Sterilization Discharge Date Comments [address] [facility] [address]al [address].Isrea mandel no complicat ions Discharge Information Feeding Method Contraceptive Method Maternal HG B and HCT Levels
--- OUTSIDE RECORDS SUMMARY | 2025-07-31 05:09 | XMS_ITS | Continuity of Care Document ---
Author Organization [facility] Jean Pierre Abrams, [facility] ([facility]) Address [address] [place] [address] Assessment No assessment recorded. Plan of Treatment [...] Abnormal Flag Note LastModifiedBy Organization Detail LastModifiedTime 01/12/2001/13/2025 URINA LYSIS , COMPL ETE color YELLOW yellow normal Not Available [employer] [address], [address], 01/13/2025 11:03:27 01/12/20 25 01/13/2025 URINA LYSIS , COMPL ETE appearance CLEAR clear normal Not Available [employer] [facility] [address], [address], 01/13/2025 11:03:27 01/12/20 25 01/13/2025 URINA LYSIS , COMPL ETE specific gravity 1.018 1.001- 1.035 normal Not Available [employer] [address], [address], 01/13/2025 11:03:27 01/12/20 25 01/13/2025 URINA LYSIS , COMPL ETE pH 6.5 5.0-8. 0 normal Not Available [facility] [address], [address], 01/13/2025 11:03:27 01/12/20 25 01/13/2025 URINA LYSIS , COMPL ETE glucose NEGATI VE negati ve normal Not Available [facility] [address], [address], 01/13/2025 11:03:27 01/12/20 25 01/13/2025 URINA LYSIS , COMPL ETE bilirubin NEGATI VE negati ve normal Not Available [facility] [address], [address], 01/13/2025 11:03:27 01/12/20 25 01/13/2025 URINA LYSIS , COMPL ETE ketones NEGATI VE negati ve normal Not Available [facility] [address], [address], 01/13/2025 11:03:27 01/12/20 25 01/13/2025 URINA LYSIS , COMPL ETE occult blood NEGATI VE negati ve normal Not Available [facility] [address], [address], 01/13/2025 11:03:27 01/12/20 25 01/13/2025 URINA LYSIS , COMPL ETE protein NEGATI VE negati ve normal Not Available [facility] [address], [address], 01/13/2025 11:03:27 01/12/20 25 01/13/2025 URINA LYSIS , COMPL ETE nitrite NEGATI VE negati ve normal Not Available [facility] [address], [address], 01/13/2025 11:03:27 01/12/20 25 01/13/2025 URINA LYSIS , COMPL ETE leukocyte esterase TRACE negati ve abnormal Not Available [facility] [address] [place], [address], 01/13/2025 11:03:27 01/12/20 25 01/13/2025 URINA LYSIS , COMPL ETE WBC NONE SEEN /hpf < or = 5 normal Not Available [address], [address], 01/13/2025 11:03:27 01/12/20 25 01/13/2025 URINA LYSIS , COMPL ETE RBC NONE SEEN /hpf < or = 2 normal Not Available [address], [address], 01/13/2025 11:03:27 01/12/20 25 01/13/2025 URINA LYSIS , COMPL ETE squamous epithelial cells 10-20 /hpf < or = 5 abnormal Not Available [address], [address], 01/13/2025 11:03:27 01/12/20 25 01/13/2025 URINA LYSIS , COMPL ETE bacteria MANY /hpf none seen abnormal Not Available [address], [address], 01/13/2025 11:03:27 01/12/20 25 01/13/2025 URINA LYSIS , COMPL ETE hyaline cast NONE SEEN /lpf none seen normal Not Available [address], [address], 01/13/2025 11:03:27 01/12/20 25 01/13/2025 URINA LYSIS , COMPL ETE note This urine was pablito zed for the prese nce of WBC, RBC, bacte ava, casts , and other forme d eleme nts. Only those eleme nts seen were repor roberto carlos. Not Available [address], [address], 01/13/2025 11:03:27 01/12/20 25 01/13/2025 CBC (INCL UDES DIFF/ PLT) white blood cell count 9.3 thous and/u L 3.8-10 .8 normal Not Available [address], [address], 01/13/2025 11:03:29 01/12/20 25 01/13/2025 CBC (INCL UDES DIFF/ PLT) red blood cell count 4.05 julianna on/uL 3.80-5 .10 normal Not Available [address], [address], 01/13/2025 11:03:29 01/12/20 25 01/13/2025 CBC (INCL UDES DIFF/ PLT) hemoglobin 11.5 g/dL 11.7-1 5.5 low Not Available [address], [address], 01/13/2025 11:03:29 01/12/20 25 01/13/2025 CBC (INCL UDES DIFF/ PLT) hematocrit 35.4 % 35.0-4 5.0 normal Not Available [address], [address], 01/13/2025 11:03:29 01/12/20 25 01/13/2025 CBC (INCL UDES DIFF/ PLT) MCV 87.4 fL 80.0-1 00.0 normal Not Available [address], [address], 01/13/2025 11:03:29 01/12/20 25 01/13/2025 CBC (INCL UDES DIFF/ PLT) MCH 28.4 pg 27.0-3 3.0 normal Not Available [address], [address], 01/13/2025 11:03:29 01/12/20 25 01/13/2025 CBC (INCL UDES DIFF/ PLT) MCHC 32.5 g/dL 32.0-3 6.0 normal For adult s, a sligh t decre ase in the calcu lated MCHC value (in the range of 30 to 32 g/dL) is most likel y not clini karyna dooley t; sasha er, it shoul d be inter prete d with cauti on in [facility] n with other red cell margarita eters and the patie nt's clini jolynn condi tion. Not Available [facility] [address], [address], 01/13/2025 11:03:29 01/12/20 25 01/13/2025 CBC (INCL UDES DIFF/ PLT) RDW 13.3 % 11.0-1 5.0 normal Not Available [facility] [address], [address], 01/13/2025 11:03:29 01/12/20 25 01/13/2025 CBC (INCL UDES DIFF/ PLT) platelet count 303 thous and/u L 140-40 0 normal Not Available [facility] [address], [address], 01/13/2025 11:03:29 01/12/20 25 01/13/2025 CBC (INCL UDES DIFF/ PLT) MPV 10.7 fL 7.5-12 .5 normal Not Available [employer] [address], [address], 01/13/2025 11:03:29 01/12/20 25 01/13/2025 CBC (INCL UDES DIFF/ PLT) absolute neutrophils 7291 cells /uL 1500-7 800 normal Not Available [facility] [address], [address], 01/13/2025 11:03:29 01/12/20 25 01/13/2025 CBC (INCL UDES DIFF/ PLT) absolute lymphocytes 1386 cells /uL 850-39 00 normal Not Available [facility] [address], [address], 01/13/2025 11:03:29 01/12/20 25 01/13/2025 CBC (INCL UDES DIFF/ PLT) absolute monocytes 512 cells /uL 200-95 0 normal Not Available [address], [address], 01/13/2025 11:03:29 01/12/20 25 01/13/2025 CBC (INCL UDES DIFF/ PLT) absolute eosinophils 93 cells /uL 15-500 normal Not Available [address], [address], 01/13/2025 11:03:29 01/12/20 25 01/13/2025 CBC (INCL UDES DIFF/ PLT) absolute basophils 19 cells /uL 0-200 normal Not Available [address], [address], 01/13/2025 11:03:29 01/12/20 25 01/13/2025 CBC (INCL UDES DIFF/ PLT) neutrophils 78.4 % normal Not Available [address], [address], 01/13/2025 11:03:29 01/12/20 25 01/13/2025 CBC (INCL UDES DIFF/ PLT) lymphocytes 14.9 % normal Not Available [address], [address], 01/13/2025 11:03:29 01/12/20 25 01/13/2025 CBC (INCL UDES DIFF/ PLT) monocytes 5.5 % normal Not Available [facility] [address], [address], 01/13/2025 11:03:29 01/12/20 25 01/13/2025 CBC (INCL UDES DIFF/ PLT) eosinophils 1.0 % normal Not Available [address], [address], 01/13/2025 11:03:29 01/12/20 25 01/13/2025 CBC (INCL UDES DIFF/ PLT) basophils 0.2 % normal Not Available [address], [address], 01/13/2025 11:03:29 01/12/20 25 01/13/2025 HEPAT ITIS B SURFA CE ANTIG EN W/REF L CONFI RM hepatitis B surface antigen NON-RE ACTIVE non-re active normal For addit ional infor melania nicolas, georgette e refer to http: //[facility] n.que stdia gnost ics.c om/fa q/FAQ 202 (This link is being provi ded for infor matio nal/ educa yury l purpo ses only. ) Not Available [facility] [address], [address], 01/13/2025 11:03:30 01/12/20 25 01/13/2025 HEPAT ITIS C AB W/REF L TO HCV RNA, QN, PCR hepatitis C antibody NON-RE ACTIVE non-re active normal HCV antib lukas was non-r eacti ve. There is no labor atory evide nce of HCV infec tion. In most cases , no furth er actio n is requi red. Howev er, if recen t HCV expos ure is suspe cted, a test for HCV RNA (test code 33910 ) is sugge sted. For addit ional infor matmckenna n pleas e refer to http: //[facility] n.que stdia gnost ics.c om/fa q/FAQ 22v1 (This link is being provi ded for infor matio nal/ educa yury l purpo ses only. ) Not Available [address] [address] [place], [address], 01/13/2025 11:03:32 01/12/20 25 01/13/2025 RUBEL LA AB (IGG) , IMMUN E STATU S rubella Ab (IgG), immune status 1.27 index normal Index Inter preta tion ----- ----- ----- ---- <0.90 Not consi stent with immun ity 0.90- 0.99 Equiv ocal > or = 1.00 Consi stent with immun ity The prese nce of rubel la IgG antib lukas sugge sts immun izati on or past or curre nt infec tion with rubel la virus . Not Available [facility] [facility] [address] [place], [address], 01/13/2025 11:03:33 01/12/2001/13/2025 HIV 1/2 ANTIG EN/AN TIBOD Y,FOU RTH GENER ATION W/RFL HIV Ag/Ab, 4TH gen NON-RE ACTIVE non-re active normal HIV-1 antig en and HIV-1 /HIV- 2 antib odies were not detec roberto carlos. There is no labor atory evide nce of HIV infec tion. PLEAS E NOTE: This infor matio n has been discl osed to you from recor ds whose confi denti ality may be prote cted by state law. If your state requi res such prote ction , then the state law prohi bits you from brady wade er discl osure of the infor matio n witho ut the speci fic writt en conse nt of the perso n to whom it perta ins, or as other john permi tted by law. A gener al autho rizat ion for the relea se of medic al or other infor matio n is NOT suffi cient for this purpo se. For addit ional infor matio n pleas e refer to http: //[facility] catmckenna n.que stdia gnost ics.c om/fa q/FAQ 106 (This link is being provi ded for infor matio nal/ educa yury l purpo ses only. ) The perfo rmanc e of this assay has not been clini karyna valid ated in patie nts less than 2 years old. Not Available [facility] [facility] [address] [place], [address], 01/13/2025 11:03:35 01/12/20 25 01/13/2025 HEMOG LOBIN A1C hemoglobin A1C 5.3 %_of_ total _HGB <5.7 normal For the purpo se of deysi ely for the prese nce of diabe moe: <5.7% Consi stent with the absen ce of diabe moe 5.7-6 .4% Consi stent with incre ased risk for diabe moe (pred iabet es) > or =6.5% Consi stent with diabe moe This assay resul t is consi stent with a decre ased risk of diabe moe. Curre ntly, no conse nsus exist s kris peterson use of hemog lobin A1c for diagn osis of diabe moe in child soraya. Accor ding to Ameri can Diabe moe Assoc iatio n (ADA) guide lines , hemog lobin A1c <7.0% repre sents optim al contr ol in non-p regna nt diabe tic patie nts. Diffe rent metri cs may apply to speci fic patie nt popul ation s. Stand ards of Medic al Care in Diabe moe(A DA). Not Available [facility] [address] [place], [address], 01/13/2025 11:03:36 01/12/20 25 01/13/2025 CHLAM YDIA/ N.ORIANA ORRHO EAE AND T. VAGIN DANIELLE RNA, QL TMA chlamydia trachomatis RNA, tma, urogenital NOT DETECT ED not detect ed normal Not Available [facility] [address] [place], [address], 01/13/2025 11:03:37 01/12/20 25 01/13/2025 CHLAM YDIA/ N.ORIANA ORRHO EAE AND T. VAGIN DANIELLE RNA, QL TMA neisseria gonorrhoeae RNA, tma, urogenital NOT DETECT ED not detect ed normal Not Available [facility] [address] [place], [address], 01/13/2025 11:03:37 01/12/20 25 01/13/2025 CHLAM YDIA/ N.ORIANA ORRHO EAE AND T. VAGIN DANIELLE RNA, QL TMA comment The pablito tical perfo rmanc e saeid cteri stics of this assay , when used to test SureP ath(T M) speci mens have been deter mined by [facility]. The modif icati ons have not been clear ed or appro emma by the FDA. This assay has been valid ated pursu ant to the CLIA regul ation s and is used for clini jolynn purpo ses. For addit ional infor georgette nath refer to https ://ed ucati on.qu estPlanar Semiconductor. com/f aq/FA Q154 (This link is being provi ded for infor melania n/ educa yury l purpo ses only. ) Not Available [employer] [address] [address] [place], [address], 01/13/2025 11:03:37 01/12/20 25 01/13/2025 CHLAM YDIA/ N.ORIANA ORRHO EAE AND T. VAGIN DANIELLE RNA, QL TMA trichomonas vaginalis RNA, ql tma NOT DETECT ED not detect ed normal For addit ional infor georgette nath e refer to http: //[facility] catmckenna n.que stdia gnost ics.c om/ faq/T erick nj tma (This link is being provi ded for infor josesitoio nal/ educa yury l purpo ses only. ) Not Available [employer] [address] [address] [place], [address], 01/13/2025 11:03:37 01/12/20 25 01/13/2025 RPR (DX) W/REF L TITER AND T. PALLI DUM AB, IA RPR (DX) w/refl titer and confirmatory testing NON-RE ACTIVE non-re active normal No labor atory evide nce of syphi lis. If recen t expos ure is suspe cted, submi t a new sampl e in 2-4 weeks . Not Available [employer] [address], [address], 01/13/2025 11:03:39 01/12/20 25 01/13/2025 ANTIB LUKAS SCREE N, RBC W/REF L ID, TITER AND AG antibody screen, RBC w/refl id, titer and Ag NO ANTIBO DIES DETECT ED normal Refer ence range No antib odies detec roberto carlos This assay is a scree [facility]is test for the detec tion of red blood cell antib odies . The test is not to be used for pretr ansfu bailey scree solis or for the medic al manag ement of an alloi mmuni zed pregn malorie. Not Available [employer] [address], [address], 01/13/2025 11:03:40 01/12/20 25 01/13/2025 ABO GROUP AND RH TYPE ABO group A Not Available [facility] [address], [address], 01/13/2025 11:03:41 01/12/20 25 01/13/2025 ABO GROUP AND RH TYPE Rh type RH(D) POSITI VE For addit ional infor georgette nath refer to http: //[facility] [place] gnost ics.c om/fa q/FAQ 111 (This link is being provi ded for infor melania contreras/ tristan mandel purpo ses only. ) Not Available [employer] [address], [address], 01/13/2025 11:03:41 01/12/20 25 01/13/2025 DRUG MONIT OR, PANEL 1, SCREE N, URINE amphetamines NEGATI VE NG/mL <500 See Note A See Note A Not Available [facility] [address] [place], [address], 01/13/2025 11:03:42 01/12/20 25 01/13/2025 DRUG MONIT OR, PANEL 1, SCREE N, URINE barbiturates NEGATI VE NG/mL <300 See Note A See Note A Not Available [address] [address] [address], [place], [address], 01/13/2025 11:03:42 01/12/20 25 01/13/2025 DRUG MONIT OR, PANEL 1, SCREE N, URINE benzodiazepi sierra NEGATI VE NG/mL <100 See Note A See Note A Not Available [address] [address] [address], [place], [address], 01/13/2025 11:03:42 01/12/20 25 01/13/2025 DRUG MONIT OR, PANEL 1, SCREE N, URINE cocaine metabolite NEGATI VE NG/mL <150 See Note A See Note A Not Available [address] [address] [address], [place], [address], 01/13/2025 11:03:42 01/12/20 25 01/13/2025 DRUG MONIT OR, PANEL 1, SCREE N, URINE marijuana metabolite NEGATI VE NG/mL <20 See Note A See Note A Not Available [employer] [address] [address] [address], [place], [address], 01/13/2025 11:03:42 01/12/20 25 01/13/2025 DRUG MONIT OR, PANEL 1, SCREE N, URINE methadone metabolite NEGATI VE NG/mL <100 See Note A See Note A Not Available [employer] [address] [address] [address], [place], [address], 01/13/2025 11:03:42 01/12/20 25 01/13/2025 DRUG MONIT OR, PANEL 1, SCREE N, URINE opiates NEGATI VE NG/mL <100 See Note A See Note A Not Available [employer] [address] [address] [address], [place], [address], 01/13/2025 11:03:42 01/12/20 25 01/13/2025 DRUG MONIT OR, PANEL 1, SCREE N, URINE oxycodone NEGATI VE NG/mL <100 See Note A See Note A Not Available [facility] [address] [address] [address], [place], [address], 01/13/2025 11:03:42 01/12/20 25 01/13/2025 DRUG MONIT OR, PANEL 1, SCREE N, URINE phencyclidin e NEGATI VE NG/mL <25 See Note A See Note A Not Available [facility] [address] [address] [place], [address], 01/13/2025 11:03:42 01/12/20 25 01/13/2025 DRUG MONIT OR, PANEL 1, SCREE N, URINE creatinine 81.3 mg/dL > or = 20.0 Not Available [facility] [address] [address] [address] , [place], [address], 01/13/2025 11:03:42 01/12/20 25 01/13/2025 DRUG MONIT OR, PANEL 1, SCREE N, URINE pH 6.9 4.5-9. 0 Not Available [facility] [address] [address] [address], [place], [address], 01/13/2025 11:03:42 01/12/20 25 01/13/2025 DRUG MONIT OR, PANEL 1, SCREE N, URINE oxidant NEGATI VE mcg/m L <200 Not Available [address] [address] [place], [address], 01/13/2025 11:03:42 01/12/2001/13/2025 DRUG MONIT ORING TEMPL ATE notes and comments This drug testi ng is for medic al treat ment only. Pablito sis was perfo rmed as non-f orens ic testi ng and these resul ts shoul d be used only by healt hcare provi ders to rende r diagn osis or treat ment, or to monit or progr ess of medic al condi tions . Note A: The resul ts are presu mptiv e; based only on deysi rice, and they have not been confi rmed by a defin itive metho d. Healt hcare Provi ders needi ng Inter preta tion fior tance , pleas e conta ct us at 1.877 .40.R XTOX (1.87 [phone] ) M-F, 8am to 10pm EST Not Available [address], [address], 01/13/2025 11:03:44 01/12/20 25 01/13/2025 CULTU RE, URINE , ROUTI NE culture, urine, routine SEE NOTE CULTU RE, URINE , ROUTI NE Micro Numbe r: [id number] Test Statu s: Final Speci men Sourc e: Urine , clean catch Speci men Quali ty: Adequ ate Resul t: Mixed genit al milagros isola roberto carlos. These super ficia l bacte ava are not indic ative of a urina ry tract infec tion. No furth er organ ism ident ifica tion is warra nted on this speci men. If clini karyna indic ated, recol lect clean -catc h, mid-s tream urine and trans jennifer immed iatel y to Urine Cultu re Trans port Tube. Not Available [address], [address], 01/13/2025 11:03:44 01/12/20 25 01/26/2025 THINP REP TIS PAP REFL HPV MRNA (IF ASCUS ,+) clinical information: normal Pregn ant Not Available [facility] [address], [address], 01/26/2025 08:36:12 01/12/20 25 01/26/2025 THINP REP TIS PAP REFL HPV MRNA (IF ASCUS ,+) LMP: normal NONE GIVEN Not Available [address], [address], 01/26/2025 08:36:12 01/12/20 25 01/26/2025 THINP REP TIS PAP REFL HPV MRNA (IF ASCUS ,+) prev. Pap: normal NONE GIVEN Not Available [address] [address] [place], [address], 01/26/2025 08:36:12 01/12/20 25 01/26/2025 THINP REP TIS PAP REFL HPV MRNA (IF ASCUS ,+) prev. BX: normal NONE GIVEN Not Available [address] [place], [address], 01/26/2025 08:36:12 01/12/20 25 01/26/2025 THINP REP TIS PAP REFL HPV MRNA (IF ASCUS ,+) source: normal Cervi x, Endoc ervix Not Available [address] [place], [address], 01/26/2025 08:36:12 01/12/2001/26/2025 THINP REP TIS PAP REFL HPV MRNA (IF ASCUS ,+) statement of adequacy: normal Satis facto ry for evalu ation . Endoc ervic al/tr ansfo rmati on zone compo nent absen t. Not Available [address] [place], [address], 01/26/2025 08:36:12 01/12/2001/26/2025 THINP REP TIS PAP REFL HPV MRNA (IF ASCUS ,+) general categorizati on: abnormal Cytol ogy Resul ts: Epith elial Cell Abnor malit y Not Available [address] [address] [place], [address], 01/26/2025 08:36:12 01/12/2001/26/2025 THINP REP TIS PAP REFL HPV MRNA (IF ASCUS ,+) interpretati on/result: abnormal Low Grade Squam ous Intra epith elial Lesio n (LSIL ) Not Available [address] [address] [place], [address], 01/26/2025 08:36:12 01/12/20 25 01/26/2025 THINP REP TIS PAP REFL HPV MRNA (IF ASCUS ,+) comment: normal This Pap test has been evalu ated with maninder senior techn ology . Not Available [address] [address] [place], [address], 01/26/2025 08:36:12 01/12/20 25 01/26/2025 THINP REP TIS PAP REFL HPV MRNA (IF ASCUS ,+) cytotechnolo gist: normal SXS, CT( CP) CT scree solis locat ion: [facility] is, [address], [place] [address] Labor atory Direc tor: CHARLES Seay MD, CLIA: [id number] Not Available [address] [address] [place], [address], 01/26/2025 08:36:12 01/12/2001/26/2025 THINP REP TIS PAP REFL HPV MRNA (IF ASCUS ,+) pathologist: normal Alex Vazquez MD, Board Certi fied in Cytop athol ogy and Anato iker Patho logy (elec troni c signa ture) Not Available [address] [address] [place], [address], 01/26/2025 08:36:12 01/12/2001/26/2025 THINP REP TIS PAP REFL HPV MRNA (IF ASCUS ,+) comment EXPLA NATOR Y NOTE: The Pap is a scree solis test for cervi jolynn cance r. It is not a diagn ostic test and is subje ct to false negat raghu and false posit raghu resul ts. It is most relia ble when a satis facto ry sampl e, regul papito obtai jose antonio, is submi tted with relev ant clini jolynn findi ngs and histo ry, and when the Pap resul t is evalu ated along with histo debra and curre nt clini jolynn infor matio n. Not Available [address] [address] [place], [address], 01/26/2025 08:36:12 01/12/20 25 01/26/2025 HPV MRNA E6/E7 HPV MRNA E6/E7 Detect ed not detect ed abnormal Metho dolog y: Trans cript ion-M ediat ed Ampli ficat ion This assay detec ts E6/E7 viral messe nger RNA (mRNA ) from 14 high- risk HPV types (16,1 8,31, 33,35 ,39,4 5,51, 52,56 ,58,5 9,66, 68). Cervi jolynn sourc es are requi red for HPV testi ng. If a vagin al sourc e from a patie nt who has had a total hyste recto my with remov al of cervi x was submi tted, pleas e conta ct the testi ng labor atory for alter nativ e testi ng optio ns. For addit ional infor georgette nath e refer to http: //[facility] brian nicolas.isamar stdia gnost ics.c om/fa q/FAQ 129v1 (This link if provi ded for infor melania nicolas/ educgracie cotton l purpo ses only. ) Not Available [facility] [id number] [place] [address], [address], 01/26/2025 08:36:13 01/12/20 25 01/11/2025 patrick wet prep Whiff negati ve Not Available [facility] ([facility]) [address] [place] [address], [phone], 01/11/2025 07:58:02 01/12/20 25 01/11/2025 patrick wet prep Epi 4-5 Not Available [facility] ([facility]) [address] [place] [address], [phone], 01/11/2025 07:58:02 01/12/20 25 01/11/2025 patrick wet prep WBC 2-3 Not Available [facility] ([facility]) [address] [place] [address], [phone], 01/11/2025 07:58:02 01/12/20 25 01/11/2025 patrick wet prep RBC ng Not Available [facility] ([facility]) [address] [place], [address], 01/11/2025 07:58:02 01/12/20 25 01/11/2025 patrick wet prep Bacteria 2++ large rods Not Available [facility] ([facility]) [address] [place], [address], 01/11/2025 07:58:02 01/12/2001/11/2025 patrick wet prep Fungus none seen Not Available [facility] ([facility]) [address] [place], [address], 01/11/2025 07:58:02 01/12/20 25 01/11/2025 patrick wet prep Clue Cells negati ve Not Available [facility] ([facility]) [address] [place], [address], 01/11/2025 07:58:02 01/12/20 25 01/11/2025 patrick wet prep Other no trich seen Not Available [facility] ([facility]) [address] [place], [address], 01/11/2025 07:58:02 01/14/20 25 02/02/2025 QNATA L(R) ADVAN SEGUNDO number of fetuses? 1 Not Available [employer] [facility] [address] [place], [address], 02/02/2025 06:13:17 01/14/20 25 02/02/2025 QNATA L(R) ADVAN SEGUNDO advanced maternal age? YES Not Available [facility] [facility] [address] [place], [address], 02/02/2025 06:13:17 01/14/20 25 02/02/2025 QNATA L(R) ADVAN SEGUNDO abnormal dany? NO Not Available [address], [address], 02/02/2025 06:13:17 01/14/20 25 02/02/2025 QNATA L(R) ADVAN SEGUNDO abnormal US? NO Not Available [address], [address], 02/02/2025 06:13:17 01/14/20 25 02/02/2025 QNATA L(R) ADVAN SEGUNDO personal/fam history? NO Not Available [address], [address], 02/02/2025 06:13:17 01/14/2002/02/2025 QNATA L(R) ADVAN SEGUNDO interpretati on SEE NOTE This speci men showe d an expec roberto carlos repre senta tion of chrom osome 21, 18, and 13 mater ial. See Neetu soria below . Not Available [address], [address], 02/02/2025 06:13:17 01/14/20 25 02/02/2025 QNATA L(R) ADVAN SEGUNDO trisomy 21 (T21) NEGATI VE Not Available [address], [address], 02/02/2025 06:13:17 01/14/20 25 02/02/2025 QNATA L(R) ADVAN SEGUNDO trisomy 18 (T18) NEGATI VE Not Available [address], [address], 02/02/2025 06:13:17 01/14/20 25 02/02/2025 QNATA L(R) ADVAN SEGUNDO trisomy 13 (T13) NEGATI VE Not Available [address] [place], [address], 02/02/2025 06:13:17 01/14/2002/02/2025 QNATA L(R) ADVAN SEGUNDO Y chromosome NOT DETECT ED Not Available [address] , [place], [address], 02/02/2025 06:13:17 01/14/2002/02/2025 QNATA L(R) ADVAN SEGUNDO Y chr. interpretati on SEE NOTE Consi stent with a femal e fetus . Not Available [address], [place], [address], 02/02/2025 06:13:17 01/14/2002/02/2025 QNATA L(R) ADVAN SEGUNDO sex chromosome NO ANEUPL OIDY Not Available [address] [address] [facility], [place], [address], 02/02/2025 06:13:17 01/14/2002/02/2025 QNATA L(R) ADVAN SEGUNDO sex chromosome interp SEE NOTE No appar ent abnor malit y was detec roberto carlos. See Limi tatio ns below . Not Available [address] , [place], [address], 02/02/2025 06:13:17 01/14/2002/02/2025 QNATA L(R) ADVAN SEGUNDO microdeletio n NOT DETECT ED Not Available [facility] [address] [address] , [place], [address], 02/02/2025 06:13:17 01/14/2002/02/2025 QNATA L(R) ADVAN SEGUNDO microdeletio n interp SEE NOTE No appar ent abnor malit y was detec roberto carlos. See Limi tatio ns below . Not Available [facility] [address] [address] [place], [address], 02/02/2025 06:13:17 01/14/2002/02/2025 QNATA L(R) ADVAN SEGUNDO gestational age(in weeks) 10 Not Available [address], [address], 02/02/2025 06:13:17 01/14/2002/02/2025 QNATA L(R) ADVAN SEGUNDO gestational age (in days) 5 Not Available [address], [address], 02/02/2025 06:13:17 01/14/2002/02/2025 QNATA L(R) ADVAN SEGUNDO fraction 16.43% Not Available [address], [address], 02/02/2025 06:13:17 01/14/2002/02/2025 QNATA L(R) ADVAN SEGUNDO laboratory comments SEE NOTE A porti on of the testi ng was perfo rmed at [facility] . Labor atory resul ts and submi tted clini jolynn infor matio n revie wed by Rosa malhotra, Ph.D. , [facility], [facility] . Not Available [address], [address], 02/02/2025 06:13:17 01/14/2002/02/2025 QNATA L(R) ADVAN SEGUNDO limitations SEE NOTE QNata l(R) Advan segundo is a cell- free DNA scree solis test that scree ns for incre ased risk of certa in chrom osoma l abnor malit ies that may cause defec ts, inclu ding Triso my 21 (Down syndr ome), Triso my 18, Triso my 13, and certa in sex chrom osome abnor malit ies (i.e. , 45,X, 47,XX Y, 47,XX X, and 47,XY Y), as well as sex. In addit ion, if selec roberto carlos as an optio n, QNata l(R) Advan segundo can scree n for certa in micro delet ions (i.e. , 22q, 5p, 1p36, 15q, 11q, 8q, and 4p) that may cause defec ts. This test does not asses s the risk of abnor malit ies such as neura l tube defec ts or ventr al wall defec ts and shoul d not be consi dered in isola tion from other clini jolynn findi ngs and labor atory test resul ts. QNata l(R) Advan segundo has been valid ated in [place] pregn [facility] for the triso mies and sex chrom osome abnor malit ies liste d above , as well as for micro delet ions, and for the deter minat ion of sex. Sex chrom osome aneup loidy pablito sis is only perfo rmed in [place] pregn ancie s. This scree soils test has also been valid ated in twin pregn ancie s for the triso mies liste d above and for micro delet ions, but not for the sex chrom osome abnor malit ies due to limit ed data. This scree solis test has not been valid ated in highe r order pregn ancie s (more than two) becau se limit ed data is avail able. Sex chrom osoma l aneup loidy resul ts issue d for pregn ancie s confi rmed to be of multi ple gesta tions are not valid and shoul d be disre castro lira. Micro delet ion scree solis is limit ed to the speci fied micro delet ion regio ns (see Meth odolo gy ). The Y chrom osome is pablito zed for the deter minat ion of sex. The sensi tivit y and speci ficit y of sex deter minat ion pablito sis may be less than that of the Triso my 21, 18, and 13 pablito sis and this deter minat ion can be confo unded by vanis evelin twin syndr ome in pregn ancie s that were origi darryl multi ple gesta tion pregn ancie s. It shoul d be noted that QNata l(R) Advan segundo is a quant itati ve pablito sis of mater nal and place ntal cfDNA . As a resul t, the accur acy of scree solis resul ts may be affec roberto carlos by the prese nce of chrom osome abnor malit ies or micro delet ions that are mater nal or confi jose antonio place ntal in origi n. Not Available [address] [address] [place], [address], 02/02/2025 06:13:17 01/14/2002/02/2025 QNATA L(R) ADVAN SEGUNDO specificatio ns SEE NOTE Sensi tivit y Speci ficit y T21 >99.9 % >99.9 % T18 >99.9 % >99.9 % T13 >99.9 % >99.9 % Accur acy Y >99.9 % Perfo rmanc e of the QNata l Advan segundo labor atory -deve loped test (LDT) has been deter mined based on inter nal pablito tical asses sment . Not Available [address], [address], 02/02/2025 06:13:17 01/14/2002/02/2025 QNATA L(R) ADVAN SEGUNDO methodology SEE NOTE Circu latin g cell- free (cf) DNA was isola roberto carlos from plasm a follo wed by detec tion on a massi vely paral lel seque ncing platf orm. Bioin forma tic pablito sis was perfo rmed to deter mine the repre senta tion of chrom osome s 21, 18, 13, X and Y in circu latin g cell- free DNA. The repre senta tion of seque nces from the charlie bocanegra ns invol emma in 1p36 micro delet ion syndr ome (1p36 ), Jim Grayson hhorn syndr ome (4p), Beth angelo t syndr ome (5p), Misty bishop syndr ome (8q), Bolivar sen syndr ome (11q) , Xochitl Tong syndr ome/A ngelm an syndr ome (15q) , and Carlton rge syndr ome (22q) is evalu ated for the detec tion of micro delet ions if reque sted. Perfo rmanc e saeid cteri stics refer to the pablito tical perfo rmanc e of this scree solis test. This scree solis test is perfo rmed pursu ant to a licen se agree ment with Seque nom Labor atori es. QNata l Advan segundo is a labor atory devel oped test that has been devel oped and valid ated, pursu ant to the Clini jolynn Labor atory Impro vemen ts Amend ments of 1987 (CLIA ), and as such it has not been revie wed by FDA. Not Available [employer] [facility] [address] [address] , [place], [address], 02/02/2025 06:13:17 02/10/20 25 02/12/2025 CULTU RE, URINE , ROUTI NE culture, urine, routine SEE NOTE abnormal CULTU RE, URINE , ROUTI NE Micro Numbe r: [id number] Test Statu s: Final Speci men Sourc e: Urine Speci men Quali ty: Adequ ate Resul t: Great er than 100,0 00 CFU/m L of Staph yloco ccus epide rmidi s S.epi dermi dis ----- ----- ----- - INT IKER CIPRO FLOXA TRAMAINE S <=0.5 GENTA MICIN S <=0.5 LEVOF LOXAC IN S <=0.1 2 MOXIF LOXAC IN S <=0.2 5 NITRO FURAN TOIN S <=16 OXACI LLIN R NR 1 TETRA CYCLI NE S 2 TRIME THOPR IM/RILEY LFA R 160 VANCO MYCIN S 1 S = Susce ptibl e I = Inter media te R = Resis tant NS = Not susce ptibl e SDD = Susce ptibl e Dose Depen dent * = Not Teste d NR = Not Repor roberto carlos NN = See Thera py Comme nts THERA PY COMME NTS Note 1: Oxaci llin- resis tant staph yloco cci are resis tant to all curre ntly avail able beta- lacta m antim icrob ial agent s with the possi ble excep tion of cefta rolin e. Not Available [employer] [facility] [address] [address], [place], [address], 02/12/2025 01:43:13 05/15/2005/15/2025 GLUCO SE SCREE N glucose screen 108.0 mg/dL Not Available [facility] [address] [facility] [address], [place], [address], 05/15/2025 11:24:08 05/15/20 25 05/15/2025 CBC WBC 8.7 x10 4.0-10 .5 Not Available [facility] [address] [facility] [address], [place], [address], 05/15/2025 11:33:05 05/15/20 25 05/15/2025 CBC RBC 3.50 x10 3.50-5 .50 Not Available [facility] [address] [facility], [place], [address], 05/15/2025 11:33:05 05/15/20 25 05/15/2025 CBC HGB 10.4 g/dL 12.0-1 6.0 low Not Available [facility] [address] [facility], [place], [address], 05/15/2025 11:33:05 05/15/20 25 05/15/2025 CBC HCT 31.3 % 37.0-4 7.0 low Not Available [facility] [address] [facility], [place], [address], 05/15/2025 11:33:05 05/15/20 25 05/15/2025 CBC MCV 90.7 fL 80.0-9 9.9 Not Available [facility] [address] [facility], [place], [address], 05/15/2025 11:33:05 05/15/20 25 05/15/2025 CBC MCH 30.0 pg 27.0-3 2.0 Not Available [facility] [address] [facility], [place], [address], 05/15/2025 11:33:05 05/15/20 25 05/15/2025 CBC MCHC 33.1 g/dL 32.0-3 6.0 Not Available [facility] [address] [facility], [place], [address], 05/15/2025 11:33:05 05/15/20 25 05/15/2025 CBC RDW 13.0 % 11.5-1 4.5 Not Available [facility] [address] [facility], [place], [address], 05/15/2025 11:33:05 05/15/20 25 05/15/2025 CBC plt 256.0 x10 140.0- 451.0 Not Available [facility] [address] [facility], [place], [address], 05/15/2025 11:33:05 05/15/2005/15/2025 CBC lymphocytes % 17.8 % 20.0-5 0.0 low Not Available [facility] [address] [facility], [place], [address], 05/15/2025 11:33:05 05/15/2005/15/2025 CBC granulcytes % 76.2 % 30.0-7 0.0 high Not Available [facility] [address] [facility], [place], [address], 05/15/2025 11:33:05 05/15/20 25 05/15/2025 CBC monocytes % 5.3 % 2.0-16 .0 Not Available [address] [address], [place], [address], 05/15/2025 11:33:05 05/15/20 25 05/15/2025 CBC granulcytes# 6.6 x10 Not Navya ilable [facility] [address], [address], 05/15/2025 11:33:05 05/15/20 25 05/15/2025 CBC lymphocytes # 1.5 x10 Not Available [address] [address], [place], [address], 05/15/2025 11:33:05 05/15/20 25 05/15/2025 CBC monocytes # 0.5 x10 Not Avai lable [address], [address], 05/15/2025 11:33:05 05/15/20 25 05/16/2025 IRON, TIBC AND CADEN TIN PANEL iron, total 132 mcg/d L 40-190 normal Not Available [address] [address] [place], [address], 05/16/2025 10:40:16 05/15/20 25 05/16/2025 IRON, TIBC AND CADEN TIN PANEL iron binding capacity 452 mcg/d L_(ca lc) 250-45 0 high Not Available [facility] [address] [address] [place], [address], 05/16/2025 10:40:16 05/15/20 25 05/16/2025 IRON, TIBC AND CADEN TIN PANEL % saturation 29 %_(ca lc) 16-45 normal Not Available [employer] [address] [address] [place], [address], 05/16/2025 10:40:16 05/15/20 25 05/16/2025 IRON, TIBC AND CADEN TIN PANEL ferritin 9 NG/mL 16-154 low Not Available [facility] [address] [place], [address], 05/16/2025 10:40:16 01/20/20 25 01/17/2025 US, obste tric, follo w-up No observ ation record ed. [email or web address] Not Available 01/20 10:49:40 03/23/20 25 03/23/2025 US, obste tric No observ ation record ed. [facility] [address] [place], [address], 04/03/2025 13:06:26 06/19/20 25 US, obste tric, follo w-up No observ ation record ed. [email or web address] [address] [place], [address], 06/20/2025 09:27:37 Result Notes None recorded. Problems Name Problem SNOMED Code Status Onset Date Resolution Date Notes Provider Name and Address Organization Details Recorded Time Contraception care management Active 2022 DAMION edwards [facility], [facility] 15:51:16 56372524 Active 2024 DAMION edwards [facility]CK[facility] 15:51:12 Deliveries by 500295407 Active 2024 Alexia Regan MD [address] [place], [address] , [facility], NickLKathyCKathy 15:57:08 Deliveries by [id number] Active 2024 Alexia Regan MD [address] [place], [address] , [facility], [place] 5 15:57:08 Anxiety 63741217 Active 2024 SINDHU DAY [facility], [place] 5 10:38:58 Anxiety 92754691 Active 2024 SINDHU DAY [facility], [place] 5 10:38:58 Problem Notes None recorded. Procedures Surgical History Date Name Laterality Status Provider Name and Address Organization Details Recorded Time delivery completed DAMION BAKER [facility], [place] 12/05/2024 12:00:02 Imaging Results None recorded. Procedure Notes None recorded. Medical Equipment None Reported. Allergies Allergen ID Allergen Name Allergen Category Reaction Reaction Severity Criticality Documentation Date Start Date Code Code System Note Provider Name and Address Organization Details Recorded Time 12555 penicilli n V potassium medicatio n hives Not available Not available 05/02/202378892 5 RxNorm React ion: Hives ; Comme nt: Recor ded 08/22 1:38P M by Miguelina guzman, CMT, Offic e Visit ; Promo roberto carlos; Theodore dooley ce: *; Reaso n: Drug aller gy; ; Not Available [facility] 3 02:24:07 Medications Name Sig Start Date [...] Last Updated DateTime 160.02 cm 26.9 kg/m2 21626.0 4 g 98.6 [degF] 98 % 98 % 85 /min 118/80 mm[Hg] SINDHU DAY [facility] 10:27:46 Social History Question Answer Notes LastModified by [facility] Details LastModified Time Tobacco Smoking Status Never Smoker DAMION SAMUEL edwards [facility] 12/05/2024 11:59:50 What Was The Date Of Your Most Recent Tobacco Screening? 04/12/2025 Information not available 04/12/2025 Sex: Unknown Functional Status Question Answer Note LastModified by [facility] Details LastModified Time Do you use any illicit or recreational drugs? No [email or web address] Information not available 12/05/2024 What is your level of alcohol consumption? None [email or web address] Information not available 12/05/2024 Mental Status None recorded. Family History Relationship Description Onset Age of this Age Resolved Age Notes LastModified by Organization Details LastModified Time Father No current problems or disability [email or web address] Not available 06/2025 10:39:10 Mother No current problems or disability Not available 06/2025 10:39:10 Medical History Condition Response Coronary Artery Disease N Gout N Other N Blood Diseases N Kidney Stones N Hyperthyroidism N Blood Transfusion N Breast Cancer N Hypothyroidism N Depression N COPD N Lung Disease N Defects or Inherited Disease N Developmental or Behavioral Disorders N Breast Problem N Difficulty Swallowing N Anesthesia Complications N Anxiety Disorder Y Meniere's disease N Muscle, Joint, or Bone Problems N Vision [...] N Heart Disease N Pulmonary Embolism N Chronic Ear Infections N Pre-Eclampsia N Hypertension N Chicken Pox N Autism Spectrum Disorder (ASD) N Osteoporosis N Thrombophilias N Gynecological History Statement/Question Response Abnormal Pap Date of LMP 10/30/2024 LMP Definite Obstetrics History GPAL:G 5 P 3 0 1 3 Type Value Full Term 3 Spontaneous 1 Living 3 Total 5 Immunizations Vaccine Type Date Status Note Provider Nam e and Address Organization Details Recorded Time DTP 2 completed Not Available [facility] 07/25/2025 10:21:45 OPV, trivalent 2 completed Not Available [facility] 07/25/2025 10:21:45 MMR 4 completed Not Available [facility] 07/25/2025 10:21:45 Hib (HbOC) 4 completed Not Available [facility] 07/25/2025 10:21:45 DTP 4 completed Not Available [facility] 07/25/2025 10:21:45 OPV, trivalent 4 completed Not Available [facility] 07/25/2025 10:21:45 DTP 4 completed Not Available [facility] 07/25/2025 10:21:45 OPV, trivalent 4 completed Not Available [facility] 07/25/2025 10:21:45 DTP 5 completed Not Available [facility] 07/25/2025 10:21:45 Hep B, unspecified formulation 5 completed Not Available [facility] 07/25/2025 10:21:45 Hib (PRP-T) 6 completed Not Available [facility] 07/25/2025 10:21:45 MMR 6 completed Not Available [facility] 07/25/2025 10:21:45 Hep B, unspecified formulation 6 completed Not Available [facility] 07/25/2025 10:21:45 OPV, trivalent 6 completed Not Available [facility] 07/25/2025 10:21:45 DTaP 6 completed [facility] Available [facility] 07/25/2025 10:21:45 Hep B, unspecified formulation 7 completed Not Available [facility] 07/25/2025 10:21:45 meningococcal MCV4P 9 completed Not Available [facility] 07/25/2025 10:21:45 HPV, quadrivalent 9 completed Not Available [facility] 07/25/2025 10:21:45 COVID-19, mRNA, LNP-S, PF, 100 mcg/0.5mL dose or 50 mcg/0.25mL dose 1 completed Not Available [facility] 07/25/2025 10:21:45 COVID-19, mRNA, LNP-S, PF, 100 mcg/0.5mL dose or 50 mcg/0.25mL dose 1 completed Not Available [facility] 07/25/2025 10:21:45 COVID-19, mRNA, LNP-S, PF, 100 mcg/0.5mL dose or 50 mcg/0.25mL dose 2 completed Not Available [facility] 07/25/2025 10:21:45 RSV, bivalent, protein subunit RSVpreF, diluent reconstituted, 0.5 mL, PF 5 completed Not Available [facility] 07/25/2025 10:21:45 Tdap 5 completed Not Available [facility] 07/25/2025 10:21:45 Influenza, split virus, quadrivalent, preservative 0 completed Not Available [facility] 05/02/2023 02:22:51 Influenza, split virus, quadrivalent, preservative 1 completed Not Available [facility] 05/02/2023 02:22:51 TST-PPD intradermal 9 completed Not Available [facility] 05/02/2023 02:22:51 TST-PPD intradermal 1 completed Not Available [facility] 05/02/2023 02:22:52 tetanus toxoid, adsorbed 6 completed Not Available [facility] 05/02/2023 02:22:57 Hep B, adult 0 completed Not Available [facility] 05/02/2023 02:22:58 DTaP, unspecified formulation 0 completed Not Available [facility] 05/02/2023 02:23:00 Past Encounters Encounter ID Performer Location Encounter Start Date Encounter Closed Date Diagnosis/Indication Diagnosis SNOMED-CT Code Diagnosis ICD10 Code Diagnosis IMO Codes Diagnosis Note [id number] Alexia Regan MD [facility] ([facility]) [address] [place] [address] 06/28/2025 14:45:17 07/05/2025 08:15:33 Gestation period, 34 weeks 50926569 Z3A.34 5592778 Multigravida 911671507 Z 34.83 79273242 Anemia 127934661 D64.9 5620687 cont iron supplement 05/30/25 Low blood pressure 13141 003 I95.9 60682135 fewer episodes that arent as bad 05/30/25 Past pregn malorie history of section 657563457 O34.219 [id number] Alexia Regan MD [facility] ([facility]) [address] [place] [phone] 07/12/2025 10:03:19 07/17/2025 12:18:56 Multigravida 173246712 Z34.83 02257457 Anemia 229071595 D64.9 3417552 cont iron supplement 05/30/25 Low blood pressure 24725 003 I95.9 12539330 fewer episodes that arent as bad 05/30/25 Past pregn malorie history of section 406336006 O34.219 12796149 Gestation period, 36 weeks 64549390 Z3A.36 9349690 [id number] Alexia Regan MD [facility] ([facility]) [address] [place] [address] 07/18/2025 14:54:50 07/21/2025 14:01:46 Gestation period, 37 weeks 84334258 Z3A.37 6371019 Pain in female pelvis 42 2438363 O26.899 R10.20 370911 [id number] Alexia Regan MD [facility] ([facility]) [address] [place] [address] 07/25/2025 10:21:18 07/26/2025 10:57:49 Gestation period, 38 weeks 36761613 Z3A.38 7772023 Multigravida 228710351 Z 34.83 59459945 Anemia 580166981 D64.9 4744546 cont iron supplement 05/30/25 Low blood pressure 28203 003 I95.9 07339988 fewer episodes that arent as bad 05/30/25 Past pregn malorie history of section 986837271 O34.219 [id number] Consultation 48965837 Z3 0.09 218044 pt still desires tubal ligation 07/25/25 Health Concerns Section Related Observation LastModified by Organization Detai ls LastModified Time None Recorded Concern Status LastModified by Organization Details LastModified Time None Recorded Payers Encounter Date Sequence Insurance Name Policy Number Policy Zheng Covered Member ID Zheng Member ID Guarantor Name 07/25/2025 1 [place] [id number] 1 Lucie Dickinson [id number] Lucie Diciknson 07/25/2025 2 [employer] [place] - [place]MO[place] [id number] Lucie Dickinson [id number] Lucie Dickinson Notes Date Note Type Note Provider Name and Address Organization Details Recorded Time 07/25/2025 text/html jr ob routineRep orted by PatientHPIFor associated symptoms, patient reportsabdominal pain,cramping,nausea,e mesis, andedemabut reportsno contractions,normal movement,no bleeding,no headache, andno dizziness.ROS as noted in the HPI Alexia Regan MD [address] [place] [address], [phone], [facility], [facility] 07/25/2025 10:53:30 OBGyn Episode Ob Episode Information Episode Created Date Number of Fetuses Patient Bloodtype Patient rh Status Prepregnancy Weight lbs Domestic Partner Domestic Partner Phone Father Name Die Mechanic Status 12/06/19 25 1 A Positive OPEN Fetus Data First Name Last Name Admitted to NICU Weight (g) Sex Living Outcome Pediatric Complications Fetus ID Race Codes Race Delivery Type [id number] Problems Problem Notes Prior c-sections x3, all FT, no hx of HTN/GDMno complications with prior pregnancies Problem Name Start Date End Date Resolution Snomed Code Not e Deliveries by 01/11/2025 579198 004 Anxiety 01/11/2025 85743171 Flako Calculation Initial Flako Date Initial Exam [...] Ultra Sound Latest Days Gestation 0 0 Pre- Flowsheet Flowsheet Date 12/05/2024 Gan Score Blood Edema Fundus Height Fundus Units Glucose Ketones Leukocytes Nitrite Labor Signs Protein Cervic Dilation Cervic Effacement Cervic Station Type Weight in lbs Pre/Post Dialysis Refused With clothes 116.905237800800 BP Diastolic BP Location Tested BP Systolic BP Type 78 R arm 114 sitting Fetus Heart Rate Present Fetus Movement Comments Flowsheet Date 01/11/2025 Gan Score Blood Edema Fundus Height Fundus Units Glucose Ketones Leukocytes Nitrite Labor Signs Protein Cervic Dilation Cervic Effacement Cervic Station Type Weight in lbs Pre/Post Dialysis Refused With clothes 120.121418814900 BP Diastolic BP Location Tested BP Systolic [...] in lbs Pre/Post Dialysis Refused With clothes 128.585348005486 BP Diastolic BP Location Tested BP Systolic BP Type 68 L arm 108 sitting Fetus Heart Rate Present A 155 Fetus Movement Comments Peds , wants a tubal after baby is born. Baby girl Namaari Flowsheet Date 03/13/2025 Gan Score Blood Edema Fundus Height Fundus Units Glucose Ketones Leukocytes Nitrite Labor Signs Protein Cervic Dilation Cervic Effacement Cervic Station 22 cm none trace Negative neg Type Weight in lbs Pre/Post Dialysis Refused With clothes 127.435226629617 BP Diastolic BP Location Tested BP Systolic [...] Weight in lbs Pre/Post Dialysis Refused Weight 129.34495501221 BP Diastolic BP Location Tested BP Systolic BP Type 60 115 Fetus Heart Rate Present A 1 Fetus Movement A Yes Comments Gtt next Flowsheet Date 05/15/2025 Gan Score Blood Edema Fundus Height Fundus Units Glucose Ketones Leukocytes Nitrite Labor Signs Protein Cervic Dilation Cervic Effacement Cervic Station 33 cm none trace Negative trace Type Weight in lbs Pre/Post Dialysis Refused Weight 135.339807936901 BP Diastolic BP Location Tested BP Systolic [...] in lbs Pre/Post Dialysis Refused With clothes 143.412992610635 BP Diastolic BP Location Tested BP Systolic [...] Weight in lbs Pre/Post Dialysis Refused Weight 143.752719592146 BP Diastolic BP Location Tested BP Systolic [...] in lbs Pre/Post Dialysis Refused With clothes 150.468780302210 BP Diastolic BP Location Tested BP Systolic [...] in lbs Pre/Post Dialysis Refused With clothes 148.393488118131 BP Diastolic BP Location Tested BP Systolic BP Type 64 112 sitting Fetus Heart Rate Present A 135 Fetus Movement A Yes Comments Flowsheet Date 07/18/2025 Gan Score Blood Edema Fundus Height Fundus Units Glucose Ketones Leukocytes Nitrite Labor Signs Protein Cervic Dilation Cervic Effacement Cervic Station 41 cm none trace Negative trace 0cm Type Weight in lbs Pre/Post Dialysis Refused With clothes 148.545301985402 BP Diastolic BP Location Tested BP Systolic [...] Weight in lbs Pre/Post Dialysis Refused Weight [id number] BP Diastolic BP Location Tested BP Systolic [...] Estim ated Date of Delivery false Thalassemia (Urdu, Palauan, Mediterranean, Or Background): MCV < 80 false Neural Tube Defect (Meningomyelocele, Spina Bifi da, Or Anencephaly) false Congenital Heart Defect false Down Syndrome false Praneeth-Sachs (eg, Gnosticism, Cajun, Tog[place]ese[place]) f alse Angélica Disease false Sickle Cell Disease Or Trait () false Hemophilia Or Other Blood Disorders false Muscular Dystrophy false Cystic Fibrosis false Patricia's Chorea false Intellectual Disability/Autism false If Yes, [...]
[2025-07-31 05:47] LABS: Hematocrit 34.1 % (36-47); Hemoglobin 11.30 g/dL (11.27-16.99); Mean Corpuscular HGB Conc 33.1 g/dL (30-55); Mean Corpuscular Hemoglobin 28.4 pg (27-33); Mean Corpuscular Volume 85.7 fl (85-98); Nucleated Red Blood Cells % 0 %; Platelet Count 215 10^3/cmm (157-399); Red Blood Count 3.98 10^6/uL (3.85-5.65); White Blood Count 9.64 10^3/uL (3.29-11.43)
[2025-07-31] MEDS: metoclopramide 5 mg/mL SDV 2 mL 10 MG IVP (06:32)
[2025-07-31] MEDS: ceFAZolin 1,000 mg SDV 1000 MG IVP (06:33)
--- NOTE | 2025-07-31 06:49 | P.ANESUD_ITS ---
Pre-Anesthetic Update Pre-Anesthetic Assessment: Date of Surgery/Procedure: 07/31/25 Preop Tosha gnosis: Planned Proposed Procedure: Operation Date: 07/31/25 07:20 Proposed Procedures p Section Repeat 83061, O34.21, Z34.83(Not Applicable) - Alexia Regan MD Any changes to Pre-Anesthetic Assessment?: No Last Intake: >8 hours Labs Last 48hrs: Short CBC 07/31/25 Range/Units 05:30 WBC 9.64 (3.29-11.43) 10^ 3/uL Hgb 11.30 (11.27-16.99) g/ dL Hct 34.1 L (36-47) % MCV 85.7 (85-98) fl Plt Count 215 (157-399) 10^3/c mm Neut % (Auto) 74.4 % Neut # (Auto) 7.17 (1.8-7.7) 10^3/u L Vitals: Pulse Rate 121 H 07/31/25 06:06 Pulse Rhythm Regular 07/31/25 05:42 Pulse Strength 3+ Normal 07/31/25 05:42 Respiratory Effort Spontaneous, Non- Labored, Easy 07/31/25 05:42 Respiratory Depth Normal 07/31/25 05:42 Respiratory Patter n Normal 07/31/25 05:42 Blood Pressure 112/74 07/31/25 06:06 Oxygen Delivery Me thod Room Air 07/31/25 05:42 Exam: Pre-Anes Outpt Exam: alert, oriented x 3, clear to auscultation bilaterally and regular rate & rhythm Cardiac Studies: Echocardiogram 04/19/25 Cardiac Event Monitor 08/30/24
--- NOTE | 2025-07-31 07:07 | PM.HP ---
Providers/Chief Complaint Admitting Physician: Alexia Regan MD Primary Care Provider: Kwaku Jaramillo MD Chief Complaint: with history of prior section History of Present Illness Lucie Dickinson is a 34 year old female G5, P3 at 39 weeks 2 days gestation here for a repeat section and bilateral tubal ligation. There have been no complications during the . Review of Systems Narrative: Positive movement, no loss of fluid, no vaginal bleeding, no contractions Medications/Allergies Home Medications ?Medication ?Instructions ?Recorded ?Confirmed ?Last Taken ?Type Vitamin 1 tab PO DAILY 03/02/25 07/31/25 07/30/25 09:00 History Iron (ferrous sulfate) 325 mg PO DAILY 06/25/25 07/31/25 2 Weeks Ago History ~07/17/25 Allergies Allergy/AdvReac Type Severity Reaction Status Date / Time Penicillins Allergy Hives Verified 07/31/25 05:26 PFSH Acute PFSH: Medical History (Updated 07/31/25 @ 08:29 by Alexia Regan MD) MILLER (generalized anxiety disorder) Moderate major depression Intermittent palpitations Anxiety and depression Migraine Surgical History S/P section Family History Grandmother Congestive heart failure (CHF) Myocardial infarction Hypertension Mother Stroke Social History Smoking and tobacco/nicotine status: never used tobacco/nicotine Alcohol intake: never Substance/Drug Use: never Female Reproductive History: : 5 Para: 3 Spontaneous abortions: Yes (1) Other female reproductive history: x 3 Vitals/I&O/Wt Last Vital Signs Pulse 121 H 07/31/25 06:06 BP 112/74 07/31/25 06:06 O2 Del Method Room Air 07/31/25 05:42 Weight last 48 hrs Weight 68.946 kg Physical Exam Narrative: Alert and oriented, heart regular rate and rhythm, lungs clear to auscultation bilaterally, abdomen is gravid and nontender, extremities have no calf tenderness Data 07/31/25 05:30 A&P Assessment and plan 1. with history of section, antepartum: Plan for repeat section with bilateral tubal ligation 2. Sterilization consult: PDMP PDMP Reviewed: Not Reviewed Attestations Medical Necessity Statement*: Routine surgery and postoperative care Coding Level of Care Code Acute Code for Chg Fwd Diagnoses with history of section, antepartum O34.219 Sterilization consult Z30.09
--- NOTE | 2025-07-31 08:30 | P.OP_ITS ---
Operative Report Date of procedure: July 31, 2025 Pre-op diagnosis: IUP at 39 weeks 2 days gestation Repeat section Desired permanent surgical sterilization Procedure done: Repeat low-transverse section via Pfannenstiel skin incision Bilateral tubal ligation Specimens removed/disposition: Vertex female weight 3700 g, Apgars 8 and 9 Pathology: Segments of right and left fallopian tubes Surgeon: Alexia Regan MD Estimated blood loss (mL): 400 IV fluids (mL): 1,600 Urine output (mL): 100 Complications: None Procedure: After informed consent the patient was taken to the OR where spinal anesthesia was administered. She was prepped and draped in normal sterile fashion in dorsal supine position with a left lateral tilt. After adequate anesthesia was verified a Pfannenstiel skin incision was made and carried through to the underlying layer of fascia sharply. The fascial incision was then extended laterally using the Mayos. There was lack of rectus musculature and the peritoneum immediately protruded. The peritoneum was entered bluntly. The incision site was manually stretched and the bladder blade was inserted. The vesicouterine peritoneum was identified and entered sharply using the Metzenbaums. The bladder flap was then created digitally and the bladder blade was reinserted. Uterine incision and amniotic rupture of membranes were performed simultaneously. There was a copious amount of clear fluid. The was delivered atraumatically in vertex presentation with bulb suction of the mouth and naris at delivery. The cord was clamped and cut. The was handed to the waiting pediatric nurse. The placenta was delivered grossly intact and normal to inspection. The uterus was then exteriorized from the abdomen and a dry sponge was used to clear the uterus of clots and debris. Uterine incision was then repaired using 0 chromic in a running locked fashion. A second layer of the same suture was used in an imbricating manner. There was excellent hemostasis. The left fallopian tube was then grasped with a [place] and a proximal portion of the tube was ligated and excised. Tubal ostia were visible. The cut portions of the tube were coagulated using the Bovie. The right fallopian tube was then grasped with a [place] and a proximal portion of the tube was ligated and excised. Tubal ostia were visualized. A segment of the tube was sent to pathology. The cut portions of the tube were coagulated using the Bovie. The uterus was then returned to the abdomen and irrigation was used to clear the gutters of clots and debris. Uterine incision was reinspected for hemostasis. The peritoneum was then reapproximated using 4-0 Vicryl in a running fashion. The fascia was reapproximated using 0 Vicryl in a running fashion. Of note there was a paucity of clear fascial layer along the right aspect of the incision. Irrigation was used in the subcutaneous tissue and any small bleeders were coagulated using the Bovie. Subcutaneous tissue was then reapproximated using 4-0 Vicryl in a running fashion. The skin was then reapproximated using 4-0 Vicryl in a running fashion on a Trung needle. Steri-Strips and a pressure bandage were applied patient went to recovery in good condition. Sponge instrument and needle counts were correct.
--- NOTE | 2025-07-31 08:50 | ANE.PACU2 ---
Inpatient post-anesthesia follow up: Airway intact: Yes Vital signs: Temperature 97.7 F Pulse Rate 81 Respiratory Rate 15 Blood Pressure 103/62 Pulse Oximetry 100 Oxygen Delivery Me thod Room Air Oxygen Flow Rate Fraction of Inspir ed Oxygen Hydration adequate: Yes Nausea and vomiting: No Pain level: 1 Mental status: Baseline
[2025-07-31 20:50] LABS: Hematocrit 32.2 % (36-47); Hemoglobin 10.70 g/dL (11.27-16.99); Mean Corpuscular HGB Conc 33.2 g/dL (30-55); Mean Corpuscular Hemoglobin 29.1 pg (27-33); Mean Corpuscular Volume 87.5 fl (85-98); Platelet Count 201 10^3/cmm (157-399); Red Blood Count 3.68 10^6/uL (3.85-5.65); White Blood Count 12.74 10^3/uL (3.29-11.43)
[2025-08-01] VITALS (9 sets, daily range): BP systolic 107–116; BP diastolic 56–68; PULSE 78–93; RESP 15; TEMP 36.7–37.2; O2SAT 96–99
[2025-08-01] MEDS: PRENATAL VIT NO.130/IRON/FOLIC 1 EACH TABLET PO (04:49)
[2025-08-01] MEDS: alum-mag-hydroxide-sime 30 mL UDC PO (09:06)
--- NOTE | 2025-08-01 12:24 | PC.NURSE ---
Instructed pt to remove surgical dressing while in shower, pat dry, and leave open to air.
--- NOTE | 2025-08-01 12:48 | P.PN_ITS ---
Subjective 2 Subjective: Doing well, average vaginal bleeding, no complaints Vitals/I&O/Wt Last Vital Signs Temp 98.8 F 08/01/25 09:54 Pulse 78 08/01/25 09:52 Resp 15 08/01/25 04:45 BP 109/63 08/01/25 09:52 Pulse Ox 96 08/01/25 04:46 O2 Del Method Room Air 08/01/25 04:45 07/31/25 08/01/25 08/01/25 22:59 06:59 14:59 Intake Total 1000 / 1000 Output Total 900 / 1500 Balance -900 / 100 1000 / 1000 Weight last 48 hrs Weight 68.946 kg Physical Exam 2 Narrative: Alert and oriented, sitting up in bed breast-feeding, abdomen is soft with appropriate postoperative tenderness, pressure bandage is still clean dry and intact, extremities have trace edema but no calf tenderness Urinary Catheter Management: Latex Free: Cath Placed During This Visit: yes, but has since been removed by the nurse Reason for Continuing Indwelling Catheter: Decision to DC Catheter Urinary Catheter Date of Insertion: 07/31/25 Urinary Catheter Time of Insertion: 07:12 Date Urinary Catheter Removed: 07/31/25 Time Urinary Catheter Discontinued: 16:00 Data 07/31/25 20:30 A&P Assessment and plan 1. Status post repeat low transverse section: Postop day 1 repeat low-transverse section and bilateral tubal ligation. Patient is doing well. Encourage ambulation, she needs to remove the pressure bandage so we can inspect the wound site. PDMP PDMP Reviewed: Not Reviewed Attestations 2 Medical Necessity Statement*: Routine postoperative and care Coding Level of Care Code Acute Code for Chg Fwd Diagnoses Status post repeat low transverse section Z98.891
[2025-08-02 04:43] VITALS: BP 124/64; PULSE 85; RESP 16; TEMP 37.1; O2SAT 97
[2025-08-02] MEDS: PRENATAL VIT NO.130/IRON/FOLIC 1 EACH TABLET PO (04:46)
[2025-08-02 10:11] VITALS: BP 106/61; PULSE 83
--- NOTE | 2025-08-02 12:42 | P.DS_ITS ---
Discharge Providers Date of Admission: 07/31/25 05:03 Date of Discharge: August 02, 2025 Attending Provider at Admission: Alexia Regan MD Attending Provider at Discharge: Alexia Regan MD Primary Care Provider: Kwaku Jaramillo MD Diagnoses at Discharge Discharge Diagnosis 1. Status post repeat low transverse section: Reason for Visit Reason for Visit: with history of prior section Hospital Course Hospital Course This is a 34-year-old G5 now P4 who had a repeat section with bilateral tubal ligation. She is postop day #2 doing well. She is ambulating, tolerating a regular diet, has good pain control and is comfortable with discharge home. Physical Exam Narrative: Alert and oriented, sitting up in bed holding the infant, abdomen is soft with appropriate postoperative tenderness, incision is clean dry and intact with Steri-Strips in place. There is no extremity edema no calf tenderness Urinary Catheter Management: Latex Free: Cath Placed During This Visit: yes, but has since been removed by the nurse Reason for Continuing Indwelling Catheter: Decision to DC Catheter Urinary Catheter Date of Insertion: 07/31/25 Urinary Catheter Time of Insertion: 07:12 Date Urinary Catheter Removed: 07/31/25 Time Urinary Catheter Discontinued: 16:00 Discharge Data Studies Completed and Pending Pending at discharge Category Date Time Status Pathology: Surgical [PTH] Routine Pth 07/31/25 08:44 Received Laboratory Results WBC 12.74 10^3/uL (3.29-11.43) H 07/31/25 20:30 RBC 3.68 10^6/uL (3.85-5.65) L 07/31/25 20:30 Hgb 10.70 g/dL (11.27-16.99) L 07/31/25 20:30 Hct 32.2 % (36-47) L 07/31/25 20:30 MCV 87.5 fl (85-98) 07/31/25 20:30 MCH 29.1 pg (27-33) 07/31/25 20:30 MCHC 33.2 g/dL (30-55) 07/31/25 20:30 RDW 12.9 % (12.1-15.1) 07/31/25 20:30 Plt Count 201 10^3/cmm (157-399) 07/31/25 20:30 MPV 11.0 fL (7.4-10.4) H 07/31/25 20:30 Neut % (Auto) 74.4 % 07/31/25 05:30 Lymph % (Auto) 18.5 % 07/31/25 05:30 [place] % (Auto) 6.2 % 07/31/25 05:30 Eos % (Auto) 0.5 % 07/31/25 05:30 Baso % (Auto) 0.2 % 07/31/25 05:30 Neut # (Auto) 7.17 10^3/uL (1.8-7.7) 07/31/25 05:30 Lymph # (Auto) 1.8 10^3/uL (0.8-4.8) 07/31/25 05:30 [place] # (Auto) 0.6 10^3/uL (0.2-0.9) 07/31/25 05:30 Eos # (Auto) 0.1 10^3/uL (0.0-0.8) 07/31/25 05:30 Baso # (Auto) 0.0 10^3/uL (0.0-0.1) 07/31/25 05:30 Nucleated RBC % (auto) 0 % 07/31/25 05:30 Nucleated RBCs # 0.0 /100WBC 07/31/25 05:30 Blood Type A Positive 07/31/25 05:30 Rho(D) Type Rh positive 07/31/25 05:30 Antibody Screen Negative 07/31/25 05:30 Vitals Last Vital Signs Temp 98.7 F 08/02/25 04:43 Pulse 83 08/02/25 10:11 Resp 16 08/02/25 04:43 BP 106/61 08/02/25 10:11 Pulse Ox 97 08/02/25 04:43 O2 Del Method Room Air 08/02/25 04:43 Discharge Plan Discharge Patient Disposition: Home Condition: Stable Prescriptions: New docusate sodium 100 mg Capsule 100 mg PO BID Qty: 60 0RF ibuprofen 800 mg Tablet 800 mg PO TID PRN (Reason: Abdominal Discomfort) Qty: 30 0RF Continued Vitamin 1 tab PO DAILY Iron (ferrous sulfate) 325 mg PO DAILY Discharge Order = DC NOW: Discharge Order (Routine); Ordered 08/02/25 Ordered By: Alexia Regan Referrals: Alexia Regan MD [Physician, Family Practice] - 08/03/25 1:45 pm Discharge Diet: Usual diet Discharge Activity: Limit activity as instructed Patient Instructions: Depression (DC), Bleeding (DC), Preeclampsia and Eclampsia After Delivery (GEN), Hemorrhage (DC), OB - Maribeth/Jass, OB Discharge Report, OB Food/Drug Interaction Guide, OB Care at Home, Opioid Safety, Patient Portal & Jim Instructions Activity Restrictions/Additional Instructions: Nothing per vagina for 6 weeks. No lifting greater than 10 pounds for 2 weeks Discharge Attestations Time Spent in Discharge Care*: less than 30 min Quality Metrics Clinical Quality Measures [ No reported AMI, CVA or VTE this stay] Coding Level of Care Code Acute Code for Chg Fwd Diagnoses Status post repeat low transverse section Z98.891
[2025-08-02 13:26] VITALS: BP 123/83; PULSE 98
[2025-08-02 14:00] VITALS: BP 123/83; PULSE 98; RESP 16; TEMP 37.1; O2SAT 97
== END 2025-08-02 14:00 | disposition home or self-care (01) | DRG 785 ==
PROVIDERS: Admitting Provider Family Medicine; PCP Family Medicine; Visit Provider Family Medicine
PROC: 10D00Z1 Extraction of Products of Conception, Low, Open Approach (ICD-10-PCS; CPT 59514; principal; 2025-07-31 07:00)
DX: O34.211 Maternal care for low transverse scar from previous cesarean delivery (principal); N85.8 Other specified noninflammatory disorders of uterus; Z3A.39 39 weeks gestation of pregnancy; Z37.0 Single live birth
CPT/HCPCS: 36415; 51702; 59025; 59409; 85025; 85027; 86850; 86900; 88302; J0690; J1885; J2274; J2371; J2405; J2765; J3010; J3490; J7030; J7121; J9999

== ENCOUNTER 2025-08-05 13:40 | Emergency (ER) | payer OTHER, BC, MEDICAID, SELFPAY ==
[2025-08-05 13:44] VITALS: BP 131/90; PULSE 87; RESP 14; TEMP 36.9; O2SAT 100; BMI 24.4
--- OUTSIDE RECORDS SUMMARY | 2025-08-05 13:46 | XMS_ITS | Data Portability ---
Author Organization [facility] Jose Alberto, [place], [facility] Address [address] [facility] [address] [place] [address] Assessment No assessment recorded. Plan of Treatment Reminders Order Date Submit Date Provider Last Modified By Organization Details Last Modified Time Details Appointments REGAN OV 025 09:30AM Alexia Regan MD Not available Not available Not available Lab None record ed. Referral None record ed. Procedures None record ed. Surgeries None record ed. Imaging None record ed. Medication Orders None record ed. Patient TargetsNo targets recorded. Patient InstructionsNo instructions recorded. Reason for Referral None Reported. Results Created Date Observation Date Name Description Value Unit Range Abnormal Flag Note LastModifiedBy Organization Detail LastModifiedTime 06/19/20 25 US, obste tric, follo w-up No observ ation record ed. [email or web address] [address], [address], 06/20/2025 09:27:37 Result Notes None recorded. Problems Name Problem SNOMED Code Status Onset Date Resolution Date Notes Provider Name and Address Organization Details Recorded Time Contracepti on care management Active 2022 [facility] 15:51:16 [id number] Completed 202408/03/2025 [facility] 14:58:02 Deliveries by [id number] Completed 2024 Alexia Regan MD [address] [place], [address], [facility], L.L.CKathy 5 15:57:08 Deliveries by [id number] Active 2024 Alexia Regan MD [address] [place], [address], [facility], NickLKathyCKathy 5 15:57:08 Anxiety 83009646 Completed 2024 SINDHU ALEXIS [facility], LKathyLKathyCKathy 5 10:38:58 Anxiety 32500040 Active 2024 SINDHU edwards [facility], LKathyLKathyCKathy 10:38:58 Problem Notes None recorded. Procedures Surgical History Date Name Laterality Status Provider Name and Address Organization Details Recorded Time delivery completed SINDHU ALEXIS SHAY [facility], NickLKathyCKathy 08/03/2025 14:59:15 Imaging Results None recorded. Procedure Notes None recorded. Medical Equipment None Reported. Allergies Allergen ID Allergen Name Allergen Category Reaction Reaction Severity Criticality Documentation Date Start Date Code Code System Note Provider Name and Address Organization Details Recorded Time 24668 penicilli n V potassium medicatio n hives Not available Not available 05/02/2023 5 RxNorm React ion: Hives ; Comme nt: Recor ded 08/22 1:38P M by Miguelina guzman, ZAINAB, Offic e Visit ; Promo roberto carlos; Theodore dooley ce: *; Reaso n: Drug aller gy; ; Not Available [facility] 3 02:24:07 Medications Name Sig Start Date [...] BY MOUTH EVERY MORNING 05/30 completed Isabel 12. Weaning herself off. Not Available Not Available [...] Updated DateTime 5 160.02 cm 26.6 kg/m2 27771.8 6 g 97.7 [degF] 98 % 98 % 94 /min 108/68 mm[Hg] [facility] 5 15:08:33 Date Recorded Body height Body mass index (BMI) Body weight Body temperature Oxygen saturation Oxygen saturation in Arterial blood by Pulse oximetry Heart rate Systolic And Diastolic Provider Name and Address Organization Details Last Updated DateTime 5 160.02 cm 26.2 kg/m2 34747.6 7 g 97.7 [degF] 99 % 99 % 92 /min 112/64 mm[Hg] [facility] 5 10:11:50 Date Recorded Body height Body mass index (BMI) Body weight Body temperature Oxygen saturation Oxygen saturation in Arterial blood by Pulse oximetry Heart rate Systolic And Diastolic Provider Name and Address Organization Details Last Updated DateTime 5 160.02 cm 26.2 kg/m2 39137.6 7 g 97.8 [degF] 98 % 98 % 101 /min 110/68 mm[Hg] DAMION BAKER [facility] 5 15:02:10 Date Recorded Body height Body mass index (BMI) Body weight Body temperature Oxygen saturation Oxygen saturation in Arterial blood by Pulse oximetry Heart rate Systolic And Diastolic Provider Name and Address Organization Details Last Updated DateTime 5 160.02 cm 26.9 kg/m2 88518.0 4 g 98.6 [degF] 98 % 98 % 85 /min 118/80 mm[Hg] SINDHU ESPINOZA DAY [facility] 5 10:27:46 Date Recorded Body height Body mass index (BMI) Body weight Body temperature Oxygen saturation Oxygen saturation in Arterial blood by Pulse oximetry Heart rate Systolic And Diastolic Provider Name and Address Organization Details Last Updated DateTime 5 160.02 cm 24.4 kg/m2 56476.7 5 g 98.6 [degF] 98 % 98 % 93 /min 138/80 mm[Hg] SINDHU ESPINOZA DAY [facility] 5 14:56:29 Social History Question Answer Notes LastModified by [employer] Details LastModified Time Tobacco Smoking Status Never Smoker DAMION BAKER [facility] 12/05/2024 11:59:50 What Was The Date Of Your Most Recent Tobacco Screening? 04/12/2025 [email or web address] Information not available 04/12/2025 Sex: Unknown Functional Status Question Answer Note LastModified by [employer] Details LastModified Time Do you use any illicit or recreational drugs? No [email or web address] Information not available 12/05/2024 What is your level of alcohol consumption? None [email or web address] Information not available 12/05/2024 Mental Status None recorded. Family History Relationship Description Onset Age of this Age Resolved Age Notes LastModified by Organization Details LastModified Time Father No current problems or disability Not available 06/2025 10:39:10 Mother No current problems or disability [email or web address] Not available 06/2025 10:39:10 Medical History Condition Response Coronary Artery Disease N Other N Gout N Kidney Stones N Blood Diseases N Hyperthyroidism N Breast Cancer N Blood Transfusion N Hypothyroidism N Depression N COPD N [...] LMP Definite Obstetrics History GPAL:G 5 P 4 0 1 4 Type Value Full Term 4 Spontaneous 1 Living 4 Total 5 Immunizations Vaccine Type Date Status Note Provider Nam e and Address Organization Details Recorded Time DTP 2 completed Not Available [facility] 08/03/2025 14:52:30 OPV, trivalent 2 completed Not Available [facility] 08/03/2025 14:52:30 MMR 4 completed Not Available [facility] 08/03/2025 14:52:30 Hib (HbOC) 4 completed Not Available [facility] 08/03/2025 14:52:30 DTP 4 completed Not Available [facility] 08/03/2025 14:52:30 OPV, trivalent 4 completed Not Available [facility] 08/03/2025 14:52:30 DTP 4 completed Not Available [facility] 08/03/2025 14:52:30 OPV, trivalent 4 completed Not Available [facility] 08/03/2025 14:52:30 DTP 5 completed Not Available [email or web address] 08/03/2025 14:52:30 Hep B, unspecified formulation 5 completed Not Available [facility] 08/03/2025 14:52:30 Hib (PRP-T) 6 completed Not Available [facility] 08/03/2025 14:52:30 MMR 6 completed Not Available [facility] 08/03/2025 14:52:30 Hep B, unspecified formulation 6 completed Not Available [facility] 08/03/2025 14:52:30 OPV, trivalent 6 completed Not Available [facility] 08/03/2025 14:52:30 DTaP 6 completed Not Available [facility] 08/03/2025 14:52:30 Hep B, unspecified formulation 7 completed Not Available [facility] 08/03/2025 14:52:30 meningococcal MCV4P 9 completed Not Available [facility] 08/03/2025 14:52:30 HPV, quadrivalent 9 completed Not Available [facility] 08/03/2025 14:52:30 COVID-19, mRNA, LNP-S, PF, 100 mcg/0.5mL dose or 50 mcg/0.25mL dose 1 completed Not Available [facility] 08/03/2025 14:52:30 COVID-19, mRNA, LNP-S, PF, 100 mcg/0.5mL dose or 50 mcg/0.25mL dose 1 completed Not Available [facility] 08/03/2025 14:52:30 COVID-19, mRNA, LNP-S, PF, 100 mcg/0.5mL dose or 50 mcg/0.25mL dose 2 completed Not Available [facility] 08/03/2025 14:52:30 RSV, bivalent, protein subunit RSVpreF, diluent reconstituted, 0.5 mL, PF 5 completed Not Available [facility] 08/03/2025 14:52:30 Tdap 5 completed Not Available [facility] 08/03/2025 14:52:30 Influenza, split virus, quadrivalent, preservative 0 completed Not Available [facility] 05/02/2023 02:22:51 Influenza, split virus, quadrivalent, preservative 1 completed Not Available [facility] 05/02/2023 02:22:51 TST-PPD intradermal 9 completed Not Available [facility] 05/02/2023 02:22:51 TST-PPD intradermal 1 completed Not Available [facility] 05/02/2023 02:22:52 tetanus toxoid, adsorbed 6 completed Not Available [facility] 05/02/2023 02:22:57 Hep B, adult 0 completed Not Available [facility] 05/02/2023 02:22:58 DTaP, unspecified formulation 0 completed Not Available [facility] 05/02/2023 02:23:00 Past Encounters Encounter ID Performer Location Encounter Start Date Encounter Closed Date Diagnosis/Indication Diagnosis SNOMED-CT Code Diagnosis ICD10 Code Diagnosis IMO Codes Diagnosis Note [id number] Zacarias Ravi MD [facility] ([facility]) [address] [place] [id number] 01/07/2023 09:08:47 01/07/2023 10:20:30 [id number] Alexia Regan MD [facility] ([facility]) [address] [place] [id number] 5 12/05/2024 11:44:51 12/07/2024 15:44:02 Gestation period, 5 weeks 05421385 Z3A.01 I reviewed what to avoid in and the plan of care. 12/05/24. Normal pre gnancy in multigravida 3161052026 55458 Z34.81 Nausea and vomiting in 5408419698 O21.9 Deliveries by [id number] O82 discussed plan for repeat at 39 weeks. 12/05/24 Anxiety 95149378 F41.9 PCP was weaning off bupropion but if her symptoms are stable on it then I recommend continuing . 12/05/24. [id number] Alexia Regan MD [facility] ([facility]) [address] [place] [phone] 5 01/17/2025 11:02:42 01/17/2025 15:33:39 [id number] Alexia Regan MD [facility] ([facility]) [address] [place] [id number] 01/11/2025 15:40:13 01/12/2025 08:08:13 Normal in multigravida 6468845561 40730 Z34.81 Gestation period, 10 weeks 47469584 Z3A.10 Deliveries by [id number] O82 discussed plan for repeat at 39 weeks. 12/05/24 Anxiety 08636723 F41.9 PCP was weaning off bupropion but if her symptoms are stable on it then I recommend continuing . 12/05/24. [id number] Alexia Regan MD [facility] ([facility]) [address] [place] [id number] 5 01/13/2025 12:03:00 01/13/2025 13:58:17 78276021 Z33.1 [id number] Alexia Regan MD [facility] ([facility]) [address] [place] [id number] 5 02/09/2025 14:01:24 02/10/2025 13:44:04 Gestation period, 14 weeks 50882146 Z3A.14 2363891 Multigravida 208574030 Z 34.82 65731104 Sterilizat ion requested 644598255 Z30.2 [id number] will plan to sign consent form at 28 week appt. 02/09/2025 Urinary tr act infection in 822892471 O23.42 9908704 Positive nitrates today 02/09/2025 Low grade squamous intraepithelial lesion on cervical Papanicolaou smear 7388787464 9105 R87.612 23453162 pt was advised to make f/u appt for colposcopy . 02/09/2025 Deliveries by [id number] O82 discussed plan for repeat at 39 weeks. 12/05/24 [id number] Alexia Regan MD [facility] ([facility]) [address] [place] [id number] 5 03/13/2025 10:31:15 03/14/2025 16:07:59 Gestation period, 19 weeks 07790056 Z3A.19 9434883 Multigravida 534958752 Z 34.82 05618726 Sterilizat ion requested 146337414 Z30.2 [id number] will plan to sign consent form at 28 week appt. 02/09/2025 [id number] Alexia Regan MD [facility] ([facility]) [address] [place] [id number] 5 03/23/2025 08:44:28 03/24/2025 09:34:19 [id number] Alexia Regan MD [facility] ([facility]) [address] [place] [id number] 5 04/12/2025 10:27:25 04/13/2025 13:57:28 Gestation period, 23 weeks 01595258 Z3A.23 1173773 Multigravida 269651296 Z 34.82 86096017 [id number] Alexia Regan MD [facility] ([facility]) [address] [place] [id number] 5 05/15/2025 09:14:24 05/16/2025 10:07:15 Gestation period, 28 weeks 22067157 Z3A.28 7645891 Multigravida 326517409 Z 34.83 67730322 Anemia 939908198 D64.9 2151204 She is taking a daily iron supplement since last week when she was in labor and delivery. We will check iron studies today. Low blood pressure 24631 003 I95.9 30261286 Patient believes she is drinking enough fluids. Her blood pressure did improve when she was at labor and delivery and received a 1 L bolus. Her symptoms seem to be orthostati c related. She was advised to eat or drink something with calories at least every 2 hours while awake. She was sent to labor and delivery for IV fluids. [id number] Alexia Regan MD [facility] ([facility]) [address] [place] [id number] 5 05/30/2025 10:06:04 05/31/2025 04:01:27 Multigravida 843000711 Z34.83 30319865 Anemia 343203663 D64.9 7949681 cont iron supplement 05/30/25 Low blood pressure 38761 003 I95.9 95642276 fewer episodes that arent as bad 05/30/25 Gestation period, 30 weeks 65862823 Z3A.30 7313288 Fundal hei ght high for dates 475269277 Z34.90 48746181 [id number] Alexia Regan MD [facility] ([facility]) [address] [place] [id number] 5 06/14/2025 11:59:58 06/28/2025 04:06:41 Multigravida 381766895 Z34.83 57109152 Anemia 560032777 D64.9 3376350 cont iron supplement 05/30/25 Low blood pressure 60500 003 I95.9 09323459 fewer episodes that arent as bad 05/30/25 Gestation period, 32 weeks 4625736 Z3A.32 5698308 Past pregn malorie history of section 399849978 O34.219 39356933 [id number] Alexia Regan MD [facility] ([facility]) [address] [place] [id number] 5 06/14/2025 11:07:45 06/14/2025 16:39:20 [id number] Alexia Regan MD [facility] ([facility]) [address] [place] [id number] 06/28/2025 14:45:17 07/05/2025 08:15:33 Gestation period, 34 weeks 67901703 Z3A.34 1443071 Multigravida 858609246 Z 34.83 79573984 Anemia 564577691 D64.9 0646970 cont iron supplement 05/30/25 Low blood pressure 43057 003 I95.9 28513628 fewer episodes that arent as bad 05/30/25 Past pregn malorie history of section 050864710 O34.219 48936248 [id number] Alexia Regan MD [facility] ([facility]) [address] [place] [address] [place] [address] 07/12/2025 10:03:19 07/17/2025 12:18:56 Multigravida 614620347 Z34.83 62707649 Anemia 017158698 D64.9 3338263 cont iron supplement 05/30/25 Low blood pressure 59820 003 I95.9 01999498 fewer episodes that arent as bad 05/30/25 Past pregn malorie history of section 497645185 O34.219 37669418 Gestation period, 36 weeks 29587975 Z3A.36 9018931 [id number] Alexia Regan MD [facility] ([facility]) [address] [place] [id number] 5 07/18/2025 14:54:50 07/21/2025 14:01:46 Gestation period, 37 weeks 25294146 Z3A.37 2984849 Pain in female pelvis 42 9742154 O26.899 R10.20 322961 [id number] Alexia Regan MD [facility] ([facility]) [address] [place] [id number] 5 07/25/2025 10:21:18 07/26/2025 10:57:49 Gestation period, 38 weeks 85715629 Z3A.38 5400263 Multigravida 334637458 Z 34.83 05910242 Anemia 118978492 D64.9 0958558 cont iron supplement 05/30/25 Low blood pressure 33150 003 I95.9 04824325 fewer episodes that arent as bad 05/30/25 Past pregn malorie history of section 980252762 O34.219 01818859 Consultation 14580756 Z3 0.09 947800 pt still desires tubal ligation 07/25/25 Health Concerns Section Related Observation LastModified by Organization Detai ls LastModified Time None Recorded Concern Status LastModified by Organization Details LastModified Time None Recorded Advance Directives Directive None Recorded Payers Insurance Date Sequence Insurance Name Policy Number Policy Zheng Covered Member ID Zheng Member ID Guarantor Name 08/02/2025 1 [place] [id number] 1 Lucie Dickinson [id number] Lucie Dickinson 08/02/2025 2 [place] [id number] Lucie Dickinson [id number] Lucie Ricketts Alok 01/13/2025 2 [place] Lucie Ricketts Alok [id number] Lucie Dickinson 07/09/2025 [place] [facility] (INSTITUTIONAL ) [id number] Lucie Ricketts Alok [id number] Lucie Ricketts Alok 07/09/2025 [place] [id number] Lucie Jamarcus Dickinson [id number] Lucie Dickinson 01/08/2024 1 [employer]PA Lucie Jamarcus Alok [id number] Lucie Dickinson 12/02/2024 1 [facility] (PPO) Lucie Ricketts Alok [id number] Lucie Dickinson Notes Date Note Type Note Provider Name and Address Organization Details Recorded Time 025 text/ht ml jr ob routineReported by PatientHPIFor associated symptoms, patient reportscramping,visual changes,headache, anddizzinessbut reportsno abdominal pain,no contractions,normal movement,no dysuria,no frequency,no nausea,no emesis, andno constipation. Alexia Regan MD [address] [place] [address], [phone], [facility] 07/04/2025 12:32:16 025 text/ht ml jr ob routineReported by PatientHPIFor associated symptoms, patient reportscrampingbut reportsno abdominal pain,no contractions,normal movement,no bleeding,no nausea,no emesis,no constipation,no visual changes,no headache, andno dizziness. Alexia Regan MD [address] [place] [address], [phone], [facility] 07/12/2025 10:49:11 025 text/ht ml jr ob routineReported by PatientHPIFor associated symptoms, patient reportscrampinganddizzinessbut reportsno abdominal pain,normal movement,no bleeding,no nausea, andno headache. Alexia Regan MD [address] [place] [address], [phone], [facility] 07/20/2025 16:56:58 025 text/ht ml jr ob routineReported by PatientHPIFor associated symptoms, patient reportsabdominal pain,cramping,nausea,emesis, andedemabut reportsno contractions,normal movement,no bleeding,no headache, andno dizziness.ROS as noted in the HPI Alexia Regan MD [address] [place] [address], [phone], [facility], [place] 07/25/2025 10:53:30 025 text/ht ml VisitReported by PatientHPIFor quality, patient reportsrepeat c/s. For context, patient reportsno complicationsandno labor complications. For associated symptoms, patient reportsno abnormal bleeding,no pelvic pain,laceration well healed, andnormal mood. For contraception plan, patient reportspermanent sterilization.ROS as noted in the HPI The patient is a 34-year-old female presenting with state. She reports an improvement in bleeding following delivery. She experienced some itchiness potentially related to adhesive reactivity, requiring minor changes in her current dressing. Hydrocortisone cream was suggested to relieve itchiness. Additionally, vitamin D supplementation was discussed for support. Not Available Not Available Not Available OBGyn Episode Ob Episode Information Episode Created Date Number of Fetuses Patient Bloodtype Patient rh Status Prepregnancy Weight lbs Domestic Partner Domestic Partner Phone Father Name Jailer Status 12/06/19 25 1 CLOSED Fetus Data [...] Tubal Sterilization Discharge Date Comments 4 [facility] l Discharge Information Feeding Method Contraceptive Method Maternal HG B and HCT Levels Ob Episode Information Episode Created Date Number of Fetuses Patient Bloodtype Patient rh Status Prepregnancy Weight lbs Domestic Partner Domestic Partner Phone Father Name Jailer Status 12/06/19 25 1 A Positive CLOSED Fetus Data First Name Last Name Admitted to NICU Weight (g) Sex Living Outcome Pediatric Complications Fetus ID Race Codes Race Delivery Type F [id number] Problems Problem Notes Prior c-sections x3, all FT, no hx of HTN/GDMno complications with prior pregnancies Problem Name Start Date End Date Resolution Snomed Code Not e Deliveries by 01/11/2025 721324 004 Anxiety 01/11/2025 60434717 Flako Calculation Initial Flako Date Initial Exam [...] in lbs Pre/Post Dialysis Refused With clothes 116.774382614848 BP Diastolic BP Location Tested BP Systolic BP Type 78 R arm 114 sitting Fetus Heart Rate Present Fetus Movement Comments Flowsheet Date 01/11/2025 Gan Score Blood Edema Fundus Height Fundus Units Glucose Ketones Leukocytes Nitrite Labor Signs Protein Cervic Dilation Cervic Effacement Cervic Station Type Weight in lbs Pre/Post Dialysis Refused With clothes 120.916031012599 BP Diastolic BP Location Tested BP Systolic [...] in lbs Pre/Post Dialysis Refused With clothes 128.437264401217 BP Diastolic BP Location Tested BP Systolic [...] in lbs Pre/Post Dialysis Refused With clothes 127.644163310154 BP Diastolic BP Location Tested BP Systolic [...] Weight in lbs Pre/Post Dialysis Refused Weight 129.24513898847 BP Diastolic BP Location Tested BP Systolic BP Type 60 115 Fetus Heart Rate Present A 1 Fetus Movement A Yes Comments Gtt next Flowsheet Date 05/15/2025 Gan Score Blood Edema Fundus Height Fundus Units Glucose Ketones Leukocytes Nitrite Labor Signs Protein Cervic Dilation Cervic Effacement Cervic Station 33 cm none trace Negative trace Type Weight in lbs Pre/Post Dialysis Refused Weight 135.363095023793 BP Diastolic BP Location Tested BP Systolic [...] in lbs Pre/Post Dialysis Refused With clothes 143.386597899154 BP Diastolic BP Location Tested BP Systolic [...] Weight in lbs Pre/Post Dialysis Refused Weight 143.864307720430 BP Diastolic BP Location Tested BP Systolic [...] in lbs Pre/Post Dialysis Refused With clothes 150.573999990270 BP Diastolic BP Location Tested BP Systolic [...] in lbs Pre/Post Dialysis Refused With clothes 148.187909007458 BP Diastolic BP Location Tested BP Systolic BP Type 64 112 sitting Fetus Heart Rate Present A 135 Fetus Movement A Yes Comments Flowsheet Date 07/18/2025 Gan Score Blood Edema Fundus Height Fundus Units Glucose Ketones Leukocytes Nitrite Labor Signs Protein Cervic Dilation Cervic Effacement Cervic Station 41 cm none trace Negative trace 0cm Type Weight in lbs Pre/Post Dialysis Refused With clothes 148.471696947173 BP Diastolic BP Location Tested BP Systolic [...] Weight in lbs Pre/Post Dialysis Refused Weight 152.708872039230 BP Diastolic BP Location Tested BP Systolic BP Type 80 118 Fetus Heart Rate Present A 135 Fetus Movement A Yes Comments c/s with tubal Flowsheet Date 08/03/2025 Gan Score Blood Edema Fundus Height Fundus Units Glucose Ketones Leukocytes Nitrite Labor Signs Protein Cervic Dilation Cervic Effacement Cervic Station Type Weight in lbs Pre/Post Dialysis Refused Weight 138.120704936952 BP Diastolic BP Location Tested BP Systolic BP Type 80 138 Fetus Heart Rate Present Fetus Movement Comments Menstrual History Last Menstrual Date Menses Monthly On Bcp Conception Prior Menses Frequency Hcg Plus Date Menarche Onset Age 0110/30/2024 Genetic Screening And Infection History Question Response Note Patient's Age Will Be 35 Years Or Older At Estim ated Date of Delivery false Thalassemia (Kenyan, Italian, Mediterranean, Or Background): MCV < 80 false Neural Tube Defect (Meningomyelocele, Spina Bifi da, Or Anencephaly) false Congenital Heart Defect false Down Syndrome false Praneeth-Sachs (eg, Jehovah'S Witness, Cajun, Paraguayan-Julian) f alse Angélica Disease false Sickle Cell [...] Post Complications Tubal Sterilization Discharge Date Comments 5 39.1 None false Discharge Information Feeding Method Contraceptive Method Maternal HG B and HCT Levels Ob Episode Information Episode Created Date Number of Fetuses Patient Bloodtype Patient rh Status Prepregnancy Weight lbs Domestic Partner Domestic Partner Phone Father Name Jailer Status 12/06/19 25 1 CLOSED Fetus Data [...] Domestic Partner Domestic Partner Phone Father Name Jailer Status 12/06/19 25 1 CLOSED Fetus Data [...] Tubal Sterilization Discharge Date Comments 1 [facility] jolynn GrimmIsrea l no complicat ions Discharge Information Feeding Method Contraceptive Method Maternal HG B and HCT Levels
--- NOTE | 2025-08-05 14:00 | W.ED.SKABFB ---
HPI - Skin/Abscess/Foreign Bdy General: Chief complaint: Skin/Abscess/Foreign Body Stated complaint: Post surgery 07/31 Rash Time Seen by Provider: 08/05/25 13:51 History of Present Illness: 34-year-old female presents emergency room she has a rash along her incision line overlying the adhesives. It is in a pattern. She had a done On 1026 on follow-up she had her incision reinforced with Steri-Strips now has irritation along incision line. Related Data Home Medications ?Medication ?Instructions ?Recorded ?Confirmed Vitamin 1 tab PO DAILY 03/02/25 08/10/25 Iron (ferrous sulfate) 325 mg PO DAILY 06/25/25 08/10/25 Previous Rx's ?Medication ?Instructions ?Recorded docusate sodium 100 mg capsule 100 mg PO BID #60 caps 08/02/25 ibuprofen 800 mg tablet 800 mg PO TID PRN Abdominal 08/02/25 Discomfort #30 tabs triamcinolone acetonide 0.1 % 1 applic topical BID #30 grams 08/05/25 topical ointment prednisone 20 mg tablet 20 mg PO DAILY 5 days #5 tabs 08/10/25 triamcinolone acetonide 0.1 % 1 applic topical TID #15 grams 08/10/25 topical ointment Allergies Allergy/AdvReac Type Severity Reaction Status Date / Time benzoin Allergy Intermediate ALGY-Rash Verified 08/10/25 17:37 Penicillins Allergy Hives Verified 08/10/25 17:31 [facility] PFSH: Medical History MILLER (generalized anxiety disorder) Moderate major depression Intermittent palpitations Anxiety and depression Migraine Surgical History S/P section Family History Grandmother Congestive heart failure (CHF) Myocardial infarction Hypertension Mother Stroke Social History Smoking and tobacco/nicotine status: never used tobacco/nicotine Alcohol intake: never Substance/Drug Use: never Female Reproductive History: Para: 3 Spontaneous abortions: Yes (1) Physical Exam Const: COMMON NORMALS: no acute distress GENERAL APPEARANCE: cooperative and comfortable ORIENTATION/CONSCIOUSNESS: Yes awake, Yes oriented to person, Yes oriented to place and Yes oriented to time HENMT: COMMON NORMALS: normocephalic, atraumatic and hearing grossly normal bilaterally HEAD & SCALP: normocephalic and atraumatic Resp: COMMON NORMALS: normal respiratory effort, No retractions, No use of accessory muscles and clear to auscultation bilaterally AUSCULTATION: clear to auscultation bilaterally Cardio: COMMON NORMALS: regular rate, regular rhythm and No murmurs present (Cardio) RATE: regular rate RHYTHM: regular rhythm GI: COMMON NORMALS: Soft to palpation and No hepatosplenomegaly present AUSCULTATION: Yes normoactive bowel sounds PALPATION: Yes Soft to palpation, No Tenderness to palpation present (GI), No Guarding due to palpation present (GI) and Yes No hepatosplenomegaly present OTHER: Examination the incision site there is a pattern to the irritation appears where the adhesive was painted onto the skin with a swab. It does not pattern after the adhesive Steri-Strips themselves. Extremity: COMMON NORMALS: normal to inspection, capillary refill normal, no clubbing, cyanosis or edema, no calf tenderness and no pedal edema Neuro: SENSORIUM/ORIENTATION: Yes oriented to person, Yes oriented to place and Yes oriented to time Skin: COMMON NORMALS: no rashes or lesions noted GENERAL SKIN EXAM: no rashes or lesions noted Course Vital Signs: Vital signs: Vital Signs Temperature 98.5 F 08/05/25 13:44 Pulse Rate 87 08/05/25 13:44 Respiratory Rate 14 08/05/25 13:44 Blood Pressure 131/90 08/05/25 13:44 Pulse Oximetry 100 08/05/25 13:44 MDM - Skin/Abscess/Foreign Bdy Medicial Decision Making Steri-Strips removed apply topical steroids follow-up with primary care. There is not a significant amount of dehiscence along the wound do not feel it needs reinforcement with sutures at this time No radiology studies performed this visit Discharge Plan Discharge Patient Disposition: Home Clinical Impression: Contact dermatitis due to adhesives Condition: Stable Prescriptions: New triamcinolone acetonide 0.1 % ointment 1 applic topical BID Qty: 30 0RF Rx Instructions: Apply daily until rash is cleared No Action Vitamin 1 tab PO DAILY prednisone 20 mg tablet 20 mg PO DAILY 5 Days Qty: 5 0RF triamcinolone acetonide 0.1 % ointment 1 applic topical TID Qty: 15 1RF docusate sodium 100 mg Capsule 100 mg PO BID Qty: 60 0RF ibuprofen 800 mg Tablet 800 mg PO TID PRN (Reason: Abdominal Discomfort) Qty: 30 0RF Iron (ferrous sulfate) 325 mg PO DAILY Discharge Orders: Discharge ED (Routine); Ordered 08/05/25 Ordered By: Lul Beard Referrals: Kwaku Jaramillo MD [Primary Care Provider, Family Practice] Discharge Diet: Usual diet Discharge Activity: Resume usual activity Patient Instructions: Opioid Safety, Pain Management, Patient Portal & Jim Instructions Activity Restrictions/Additional Instructions: Thank you for choosing [facility] for your healthcare needs today. It is very important that you follow up as instructed or that you return to the Emergency Department should you have concerns or if your condition changes or worsens in any way. Emergency department visits are focused on emergent conditions, in some cases you may require further evaluation on an outpatient basis. You are seen in the emergency room with irritation around your recent section incision. From the pattern suspect the tincture of benzoin caused a localized contact dermatitis. The Steri-Strips were removed. Apply the steroid ointment sparingly around the incision try to avoid the incision itself. You can also use [id number] topical diphenhydramine cream. (Please note that included in your discharge packet is information concerning opioid safety and pain management. This information is given to all patients were discharged from the ER regardless of their discharge diagnosis or the medicines they usually take or are prescribed.) Print Language: Japanese Coding Level of Care Code ED Neurological Surgery Teacher for Wilberto Roger
== END 2025-08-05 14:26 | disposition home or self-care (01) ==
PROVIDERS: Emergency Provider Family Medicine; PCP Family Medicine
DX: L25.8 Unspecified contact dermatitis due to other agents (principal)
CPT/HCPCS: 99283